=== PATIENT | male | born 1935 | race Caucasian/White ===

== ENCOUNTER 2017-01-10 11:29 | Inpatient (IN) | payer MEDICARE ==
[2017-01-10] MEDS ORDERED: FUROSEMIDE 100 MG/10 ML VIAL IVP STA (12:03)
[2017-01-10] MEDS ORDERED: FUROSEMIDE 20 MG/2 ML VIAL IVP ONE (12:22)
[2017-01-10] MEDS ORDERED: FUROSEMIDE 40 MG/4 ML VIAL ONE (12:22)
[2017-01-10 12:28] LABS: BASOPHILS # (AUTO) 0.1 10^3/uL (0.0-0.1); BASOPHILS % (AUTO) 0.6 %; EOSINOPHILS # (AUTO) 0.1 10^3/uL (0.0-0.7); EOSINOPHILS % (AUTO) 1.2 %; HCT - HEMATOCRIT 41.2 % (42.0-52.0); HGB - HEMOGLOBIN 13.7 g/dL (14.0-18.0); LYMPHOCYTES % (AUTO) 10.2 %; MEAN CORPUSCULAR HEMOGLOBIN 30.5 pg (27.0-31.0); MEAN CORPUSCULAR HGB CONC 33.2 g/dL (32.0-36.0); MEAN CORPUSCULAR VOLUME 91.9 fL (80.0-94.0); MEAN PLATELET VOLUME 9.5 fL (7.4-11.4); MONOCYTES # (AUTO) 0.7 10^3/uL (0.0-1.0); MONOCYTES % (AUTO) 7.6 %; NEUTROPHILS # (AUTO) 7.6 10^3/uL (1.5-6.6); NEUTROPHILS % (AUTO) 80.4 %; RED BLOOD COUNT 4.49 10^6/uL (4.70-6.10); RED CELL DISTRIBUTION WIDTH 14.1 % (12.0-15.0); UNCORRECTED WHITE BLOOD COUNT 9.4 x10^3/uL; WHITE BLOOD COUNT 9.4 x10^3/uL (4.8-10.8)
[2017-01-10 12:41] LABS: ALBUMIN/GLOBULIN RATIO 1.3 (1.0-2.2); BILIRUBIN,TOTAL 0.5 mg/dL (0.2-1.0); CALCIUM 9.4 mg/dL (8.5-10.3); CREATININE 1.6 mg/dL (0.6-1.2); POTASSIUM 3.8 mmol/L (3.5-5.0)
--- NOTE | 2017-01-10 12:59 | XRAY Preliminary Report ---
Exam: XR Chest 1 View IMPRESSION: 1. Diffuse interstitial prominence may be related to magnification artifact from AP portable techniqu e and body habitus or mild interstitial edema. [facility] SITE ID: [id number]
--- NOTE | 2017-01-10 13:02 | XRAY Report ---
EXAM: CHEST RADIOGRAPHY EXAM DATE: 01/10/2017 12:32 PM. CLINICAL HISTORY: Dyspnea. COMPARISON: 01/08/2012. TECHNIQUE: 1 view. FINDINGS: Lungs/Pleura: Diffuse interstitial prominence. No pneumothorax, pleural effusion or focal consolidation evident. Mediastinum: Atherosclerotic aortic calcifications. Other: None. IMPRESSION: 1. Diffuse interstitial prominence may be related to magnification artifact from AP portable techniqu e and body habitus or mild interstitial edema. [facility] Referring Provider Line: [phone] SITE ID: [id number]
--- NOTE | 2017-01-10 13:27 | ED Physician Documentation ---
PD HPI DYSPNEA - Stated complaint Stated Complaint: SOA, SPEECH ISSUES - Chief complaint Chief Complaint: Resp - History obtained from History obtained from: Patient - History of Present Illness Timing - onset: How many weeks ago (1) Timing - onset during: Rest Timing - details: Gradual onset, Constant Associated symptoms: Cough. No: Fever, Chest pain / discomfort Similar symptoms before: Diagnosis (CHF) - Additional information Additional information: The patient is an 81-year-old male history of hypertension, CHF, and type II diabetes, who presents with shortness of breath that has been getting progressively worse for about one week. He reports cough with scant sputum production. He denies fever or chest pain. He has noticed increased swelling in his legs. His dyspnea is worse when supine. He sleeps sitting up in a chair, but has been doing that for about 5 years. He normally takes Lasix, 80 mg daily , and spironolactone, 25 mg daily. He reports similar symptoms in the past but of more transient duration. Social history is significant in that he lives alone. Review of Systems Constitutional: denies: Fever Ears: denies: Tinnitus/ringing Nose: denies: Congestion Throat: denies: Sore throat Cardiac: denies: Chest pain / pressure Respiratory: reports: Dyspnea, Cough GI: denies: Abdominal Pain, Nausea, Vomiting : denies: Dysuria Skin: denies: Rash Musculoskeletal: reports: Extremity swelling. denies: Extremity pain Neurologic: denies: Focal weakness, Headache PD PAST MEDICAL HISTORY - Past Medical History Past Medical History: Yes Cardiovascular: Congestive heart failure, Coronary artery disease, [place] Respiratory: Shortness of breath, Sleep apnea Neuro: None Endocrine/Autoimmune: None GI: Chronic diarrhea : Benign prostate hypertrophy, Chronic bladder infection, Nocturia HEENT: None Psych: Depression Musculoskeletal: Osteoarthritis, Fatigue, Chronic back pain Derm: None - Past Surgical History General: Cholecystectomy - Present Medications Home Medications: Ambulatory Orders Medication Instructions Recorded Confirmed Allopurinol [Zyloprim] 150 mg PO DAILY 01/02/13 01/10/17 Aspirin [Aspir 81] 81 mg PO DAILY 01/02/13 01/10/17 Carvedilol 1 tab PO BID 01/02/13 01/10/17 Cholecalciferol (Vitamin D3) 2,000 unit PO DAILY 01/02/13 01/10/17 [Vitamin D-3] Dutasteride/Tamsulosin HCl [Kati 1 cap PO DAILY 01/02/13 01/10/17 0.5-0.4 mg Capsule] Furosemide [Lasix] 80 mg PO DAILY 01/02/13 01/10/17 Glimepiride [Amaryl] 2 mg PO DAILYWM 01/02/13 01/10/17 Simvastatin [Zocor] 40 mg PO QPM 01/02/13 01/10/17 Spironolactone [Aldactone] 25 mg PO DAILY 01/02/13 01/10/17 Trazodone HCl 100 mg PO HS 01/02/13 01/10/17 Lisinopril [Zestril] 10 mg PO DAILY 01/10/17 01/10/17 Multivitamin [Theragran] 1 tab PO DAILY 01/10/17 01/10/17 - Allergies Allergies/Adverse Reactions: Allergies Allergy/AdvReac Type Severity Reaction Status Date / Time No Known Drug Allergies Allergy Verified 01/02/13 09:20 - Living Situation Living Situation: reports: Alone Living Arrangement: reports: At home - Social History Does the pt smoke?: Yes Smoking Status: Former smoker - Immunizations Immunizations are current?: Yes PD ED PE NORMAL - Vitals Vital signs reviewed: Yes (Tachypneic and hypertensive, with low pulse oximetry of 84% on room air.) - General General: Alert and oriented X 3, Other (Alert, deconditioned male, who appears dyspneic.) - HEENT HEENT: Atraumatic, EOMI, Pharynx benign - Neck Neck: No adenopathy, Other (JVD at 30 elevation.) - Cardiac Cardiac: RRR, No murmur - Respiratory Respiratory: Other (Decreased breath sounds bilaterally, with rales. No wheezing or rhonchi.) - Abdomen Abdomen: Soft, Non tender - Back Back: No CVA TTP - Derm Derm: No rash - Extremities Extremities: No calf tenderness / cord, Other (3+ pedal edema bilaterally.) - Neuro Neuro: Alert and oriented X 3, No motor deficit, Normal speech Results - Vitals Vitals: Vital Signs - 24 hr 01/10/17 01/10/17 01/10/17 11:31 12:07 12:35 Temperature 36.4 C L Heart Rate 98 82 81 Respiratory 36 H 30 H Rate Blood Pressure 159/103 H 131/77 H 124/69 O2 Saturation 84 L 97 96 01/10/17 14:02 Temperature Heart Rate 77 Respiratory 29 H Rate Blood Pressure 105/49 L O2 Saturation 98 Oxygen O2 Source Nasal cannula Oxygen Flow Rate 2.5 - EKG (time done) 11:43 Rate: Rate (enter#) (85) Rhythm: NSR, Other (Multiple PVC's) Intervals: LBBB Ischemia: Q waves (in III and aVF) Compare to prior EKG: Old EKG unavailable Computer interpretation: Agree with computer - Labs Labs: Laboratory Tests 01/10/17 01/10/17 01/10/17 12:15 12:15 12:15 WBC 9.4 RBC 4.49 L Hgb 13.7 L Hct 41.2 L MCV 91.9 MCH 30.5 MCHC 33.2 RDW 14.1 Plt Count 127 L MPV 9.5 Neut # 7.6 H Lymph # 1.0 L [place] # 0.7 Eos # 0.1 Baso # 0.1 Absolute Nucleated RBC 0.00 Nucleated RBCs 0.0 Sodium 143 Potassium 3.8 Chloride 101 Carbon Dioxide 33 H Anion Gap 9.0 BUN 28 H Creatinine 1.6 H Estimated GFR (MDRD) 41 L Glucose 141 H Lactic Acid Calcium 9.4 Total Bilirubin 0.5 AST 17 ALT 22 Alkaline Phosphatase 47 Troponin I 0.51 H* B-Natriuretic Peptide Total Protein 7.0 Albumin 3.9 Globulin 3.1 Albumin/Globulin Ratio 1.3 Lipase 36 Urine Color Urine Clarity Urine pH Ur Specific [place] Urine Protein Urine Glucose (UA) Urine Ketones Urine Occult Blood Urine Nitrite Urine Bilirubin Urine Urobilinogen Ur Leukocyte Esterase Ur Microscopic Review Urine Culture Comments 01/10/17 01/10/17 01/10/17 12:15 12:35 13:50 WBC RBC Hgb Hct MCV MCH MCHC RDW Plt Count MPV Neut # Lymph # [place] # Eos # Baso # Absolute Nucleated RBC Nucleated RBCs Sodium Potassium Chloride Carbon Dioxide Anion Gap BUN Creatinine Estimated GFR (MDRD) Glucose Lactic Acid 1.3 Calcium Total Bilirubin AST ALT Alkaline Phosphatase Troponin I B-Natriuretic Peptide 1886 H Total Protein Albumin Globulin Albumin/Globulin Ratio Lipase Urine Color YELLOW Urine Clarity CLEAR Urine pH 6.5 Ur Specific [place] 1.010 Urine Protein NEGATIVE Urine Glucose (UA) NEGATIVE Urine Ketones NEGATIVE Urine Occult Blood [place] Urine Nitrite NEGATIVE Urine Bilirubin NEGATIVE Urine Urobilinogen 0.2 (NORMAL) Ur Leukocyte Esterase NEGATIVE Ur Microscopic Review NOT INDICATED Urine Culture Comments NOT INDICATED - Rads (name of study) Portable CXR Radiology: Prelim report reviewed, EMP read contemporaneously, See rad report ( Diffuse interstitial prominence may be related to magnification artifact from AP portable technique and body habitus or mild interstitial edema.) PD MEDICAL DECISION MAKING - ED course Complexity details: reviewed results, re-evaluated patient, considered differential, d/w patient, d/w independent marketing consultant ED course: The patient's presentation is significant for acute congestive heart failure with dyspnea and hypoxia. Pulse oximetry was 84% upon presentation on room air. BNP is elevated at 1886. Troponin is mildly above the normal threshold at 0.51. Treatment in the emergency department included administration of Lasix 80 mg IV. A Torres catheter was inserted. Supplemental oxygen was administered by nasal cannula. Following the above treatment the patient's symptoms improved, but he remained tachypneic. I discussed his condition with Dr. Dang who evaluated him in the emergency department and admitted him for further evaluation and treatment. Departure - Departure Disposition: [facility] DC/Xfer Clinical Impression: Hypoxemia Congestive heart failure Qualifiers: Congestive heart failure type: unspecified congestive heart failure type Congestive heart failure chronicity: acute Qualified Code(s): I50.9 - Heart failure, unspecified Dyspnea Qualifiers: Dyspnea type: shortness of breath Qualified Code(s): R06.02 - Shortness of breath Condition: Stable Discharge Date/Time: 01/10/17 15:30
[2017-01-10 14:03] LABS: BILIRUBIN,URINE NEGATIVE (NEGATIVE); PH,URINE 6.5 PH (5.0-7.5)
[2017-01-10 14:07] LABS: UA CHARGE (STRIP ONLY) YES; UR CULTURE IF IND NOT INDICATED
[2017-01-10] MEDS ORDERED: ACETAMINOPHEN 325 MG TABLET PO PRN (14:30)
[2017-01-10] MEDS ORDERED: ONDANSETRON 4 MG/2 ML VIAL IVP PRN (14:30)
[2017-01-10] MEDS ORDERED: HYDROcod/ACETAM 5/325 MG TABLET PO PRN (14:30)
[2017-01-10] MEDS: FUROSEMIDE INJ 100mg VIAL 80 MG in SODIUM CHLORIDE 0.9% 50 ML IVP SCH (18:32)
[2017-01-10 20:23] LABS: BILIRUBIN,URINE NEGATIVE (NEGATIVE); PH,URINE 5.5 PH (5.0-7.5)
[2017-01-10 20:26] LABS: UA w/ MICROSCOPIC CHARGE YES
[2017-01-10 20:29] LABS: UR CULTURE IF IND INDICATED; WBC,URINE >25 /HPF (0-3)
[2017-01-10] MEDS ORDERED: FUROSEMIDE 40 MG/4 ML VIAL IVP SCH (21:00)
[2017-01-10] MEDS: MIN OIL/DIMETHICON/COCONUT OIL 92 GM TUBE TOP SCH (22:16)
[2017-01-10] MEDS: SODIUM CHLORIDE FLUSH 0.9% 10 ML SYRINGE IVP SCH (22:59)
[2017-01-11] MEDS: SODIUM CHLORIDE FLUSH 0.9% 10 ML SYRINGE IVP SCH ×3 (05:43→21:17)
[2017-01-11] MEDS: FUROSEMIDE INJ 100mg VIAL 80 MG in SODIUM CHLORIDE 0.9% 50 ML IVP SCH ×2 (05:43→14:03)
[2017-01-11 06:09] LABS: BASOPHILS # (AUTO) 0.1 10^3/uL (0.0-0.1); BASOPHILS % (AUTO) 0.7 %; EOSINOPHILS # (AUTO) 0.2 10^3/uL (0.0-0.7); HCT - HEMATOCRIT 42.5 % (42.0-52.0); HGB - HEMOGLOBIN 13.9 g/dL (14.0-18.0); LYMPHOCYTES # (AUTO) 1.4 10^3/uL (1.5-3.5); LYMPHOCYTES % (AUTO) 13.7 %; MEAN CORPUSCULAR HEMOGLOBIN 30.4 pg (27.0-31.0); MEAN CORPUSCULAR HGB CONC 32.6 g/dL (32.0-36.0); MEAN CORPUSCULAR VOLUME 93.1 fL (80.0-94.0); MEAN PLATELET VOLUME 10.1 fL (7.4-11.4); MONOCYTES # (AUTO) 0.9 10^3/uL (0.0-1.0); MONOCYTES % (AUTO) 8.3 %; NEUTROPHILS # (AUTO) 7.8 10^3/uL (1.5-6.6); NEUTROPHILS % (AUTO) 75.3 %; RED BLOOD COUNT 4.57 10^6/uL (4.70-6.10); RED CELL DISTRIBUTION WIDTH 14.2 % (12.0-15.0); UNCORRECTED WHITE BLOOD COUNT 10.4 x10^3/uL; WHITE BLOOD COUNT 10.4 x10^3/uL (4.8-10.8)
[2017-01-11 06:17] LABS: ALBUMIN/GLOBULIN RATIO 1.1 (1.0-2.2); CALCIUM 9.3 mg/dL (8.5-10.3); CREATININE 1.6 mg/dL (0.6-1.2)
--- NOTE | 2017-01-11 07:38 | HISTORY & PHYSICAL EXAMINATION ---
DATE OF ADMISSION: 01/10/2017 CHIEF COMPLAINT: Shortness of breath. IDENTIFYING INFORMATION: The patient is an 81-year-old male who appears to be a fair historian, and he is the primary source of history. Additional information is obtained in the handoff from the emergency department physician, Dr. Lim. History is also supplemented by personal review of past medical records that are summarized below. All were used in addition to the patient's examination and evaluation in preparation of this document. HISTORY OF PRESENT ILLNESS: Patient with history of hypertension, CHF, who began having shortness of breath about a week ago. He reports a cough also, mostly dry, some sputum. He says he has been cold at times, but no jere fever or sweats. He denies any chest pain. He has noted that his legs are always swollen, but much more swollen than they have been. The patient normally sleeps in a chair, which he has been doing for several years, but he has had more problems even sleeping at night. The patient says diabetes has not been under as good control. He has had no passing out or fainting episodes. He is quite limited normally in his ambulation. REVIEW OF SYSTEMS: Complete review of systems is negative except for what is noted in the HPI, and that the patient says the bowels have been on the constipated side, but he has pooped sometime in the last few days. PAST MEDICAL HISTORY: Congestive heart failure, coronary artery disease, myocardial infarction. He never had any stents placed. He was conservative management arm of ongoing clinical study for many years. The patient also has sleep apnea. He has chronic diarrhea, which at this point is intermittent. He has BPH, recurrent bladder infections, and also bladder cancer that has been surgerized 3 times. He has nocturia, depression, arthritis, fatigue, chronic back pain. SURGERIES: Cholecystectomy and 3 bladder surgeries. ALLERGIES: NONE KNOWN. MEDICATIONS 1. Zyloprim 175 a day. 2. Aspirin 81 mg a day. 3. Carvedilol 2 tabs twice a day, unknown dose. 4. Vitamin D3. 5. Dutasteride/tamsulosin 1 tab twice a day. 6. Lasix 40 mg twice a day. 7. Amaryl 1 mg a day. 8. Zestril 10 mg a day. 9. Multivitamin 1 a day. 10. Zoloft 25 mg a day. 11. Simvastatin 40 mg a day. 12. Spironolactone 25 mg a day. 13. Trazodone 100 mg at bedtime. PERSONAL AND SOCIAL HISTORY: The patient lives at home alone. His , his children live far away. The patient smoked in his early years, but for a long time. No alcohol. FAMILY HISTORY: Positive for diabetes, heart disease, cancer of an unknown type. PHYSICAL EXAMINATION VITAL SIGNS: 36.4, 98, 30 respiratory rate, 131/71, O2 saturation 97 on 2.5 liters. GENERAL: The patient is a portly male, appears stated age. EYES: EOM within normal limits. PERRL. Nonicteric. MOUTH AND THROAT: Moist mucous membranes, no pathology. NECK: No JVD, bruits heard. No lymphadenopathy, no thyromegaly. CHEST WALL: Nontender. Symmetric. HEART: Sinus rhythm, no murmur, rubs, clicks. LUNGS: Have crackles in the bases bilaterally. No wheezes. Fair air movement. ABDOMEN: Very thick abdominal wall. Soft, nontender. RECTAL/GENITAL: No rectal or genital exam done. EXTREMITIES: He has 3+ edema of both knees bilaterally. VASCULAR: No cyanosis. Delayed capillary refill lower extremities, and pulses are not felt at the posterior tibial. NEUROLOGIC: Cognition intact. Cranial nerves intact. Motor intact. SKIN: No suspicious lesions or dermatitis noted on limited exam. DIAGNOSTICS: White count 9.4, 13 and 41 hemoglobin and hematocrit, patient's platelets are 127. Patient's sodium 143, potassium is 3.8, chloride is 33, BUN 28, creatinine 1.6. The patient's glucose is 141. Lactate 1.3. Calcium 9.4. Troponin 0.5. Patient has normal liver enzymes. Albumin is 3.9. BNP is 1886. SUMMARY: Patient is an 81-year-old male with past medical history of hypertension, CHF, type 1 diabetes, bladder cancer. The patient over the last week became progressive shortness of breath, more swelling in his legs, presents to the hospital. Found to have exacerbation of his CHF. Patient is admitted for diuresis, further workup. Also, suspect cardiac strain versus [place]. DIAGNOSES 1. Congestive heart failure with exacerbation, suspect systolic origin. 2. Cardiac strain versus myocardial infarction. 3. Hypertension. 4. Diabetes, uncontrolled. 5. Bladder cancer by history, in remission. 6. Benign prostatic hypertrophy. DISCUSSION/DECISION MAKING 1. Congestive heart failure. Patient will have diuresis, beta-blockers, ASAD and ARB started as well. Patient's medications are unclear and need to be reconciled by pharmacy to decide on the best regime. Patient's troponin is 0.51 , is mildly abnormal. He will have a followup troponin and decide if any further workup is needed. He will the echo as noted above to assess his cardiac function and decide if there is any regional dyskinesia. 2. Hypertension, presently controlled, but will need to be monitored closely given the above diagnoses. 3. Diabetes type 2, uncontrolled. Will have an A1c to decide how uncontrolled he is and what else may need to be started. The patient will need to be on glucose monitoring and 4 choice controlled carb diet, as well as a low sodium diet for his cardiac disease. 4. Bladder cancer. No diagnostics unless he develops hematuria or other urinary tract problems. 5. Benign prostatic hypertrophy. Will continue his present medications for that disorder. HOSPITAL ISSUES 1. The patient is CODE STATUS DNR/DNI. 2. For patient's venous thromboembolism, patient will get enoxaparin subcutaneous. 3. Diet will be carb controlled and low sodium. 4. Activity, which will be up with assistance. 5. Tubes and lines: Will have a Torres catheter, given the diuresis and his gait instability with the severe leg swelling. He will also have a peripheral IV. 6. Hospital status: He is inpatient status, given the severity of his condition and comorbidities, require at least 2 nights to assure improvement for safe discharge. 7. Length of stay is estimated to be 3 nights. 8. Disposition. Continuing at home may not be safe, and will have evaluation by Social Work and Case Management. JOB #: [id number] EXT JOB #:[id number] [place]
[2017-01-11] MEDS ORDERED: PERFLUTREN LIPID MICROSPHERES 1.65 MG/1.5 ML VIAL IVP ONE (08:06)
[2017-01-11] MEDS: ENOXAPARIN 40 MG/0.4 ML SYRINGE SUBQ SCH (08:23)
[2017-01-11] MEDS: POLYETHYLENE GLYCOL 3350 17 GM PACKET PO SCH (08:24)
[2017-01-11] MEDS: MIN OIL/DIMETHICON/COCONUT OIL 92 GM TUBE TOP SCH ×2 (08:24→21:17)
[2017-01-11] MEDS: NYSTATIN CREAM 15 GM TUBE TOP SCH ×2 (21:16→21:17)
[2017-01-12] MEDS ORDERED: ALBUTEROL NEB 2.5 MG/3 ML INH SCH (01:00)
[2017-01-12] MEDS ORDERED: FUROSEMIDE 40 MG/4 ML VIAL IVP SCH (01:00)
[2017-01-12] MEDS: SODIUM CHLORIDE FLUSH 0.9% 10 ML SYRINGE IVP PRN ×2 (01:17→09:12)
[2017-01-12] MEDS: NYSTATIN CREAM 15 GM TUBE TOP SCH ×3 (05:50→21:11)
[2017-01-12] MEDS: FUROSEMIDE INJ 100mg VIAL 80 MG in SODIUM CHLORIDE 0.9% 50 ML IVP SCH ×2 (05:50→13:44)
[2017-01-12] MEDS: SODIUM CHLORIDE FLUSH 0.9% 10 ML SYRINGE IVP SCH ×3 (05:50→21:11)
[2017-01-12 06:08] LABS: BASOPHILS # (AUTO) 0.1 10^3/uL (0.0-0.1); BASOPHILS % (AUTO) 0.6 %; EOSINOPHILS # (AUTO) 0.1 10^3/uL (0.0-0.7); EOSINOPHILS % (AUTO) 1.3 %; HCT - HEMATOCRIT 43.6 % (42.0-52.0); LYMPHOCYTES # (AUTO) 1.3 10^3/uL (1.5-3.5); LYMPHOCYTES % (AUTO) 13.7 %; MEAN CORPUSCULAR HEMOGLOBIN 30.3 pg (27.0-31.0); MEAN CORPUSCULAR HGB CONC 32.1 g/dL (32.0-36.0); MEAN CORPUSCULAR VOLUME 94.4 fL (80.0-94.0); MEAN PLATELET VOLUME 10.3 fL (7.4-11.4); MONOCYTES # (AUTO) 0.8 10^3/uL (0.0-1.0); MONOCYTES % (AUTO) 8.4 %; NEUTROPHILS # (AUTO) 7.5 10^3/uL (1.5-6.6); RED BLOOD COUNT 4.61 10^6/uL (4.70-6.10); RED CELL DISTRIBUTION WIDTH 14.1 % (12.0-15.0); UNCORRECTED WHITE BLOOD COUNT 9.8 x10^3/uL; WHITE BLOOD COUNT 9.8 x10^3/uL (4.8-10.8)
[2017-01-12 06:19] LABS: ALBUMIN/GLOBULIN RATIO 1.2 (1.0-2.2); CREATININE 1.7 mg/dL (0.6-1.2); POTASSIUM 4.1 mmol/L (3.5-5.0); TOTAL PROTEIN 6.8 g/dL (6.7-8.2)
[2017-01-12] MEDS ORDERED: cefTRIAXone 500 MG VIAL IVP SCH (07:00)
[2017-01-12] MEDS ORDERED: metOLazone 2.5 MG TABLET PO SCH (09:00)
[2017-01-12] MEDS: cefTRIAXone 2 GM in SODIUM CHLORIDE 0.9% MINIBAG 100 ML IV SCH (09:10)
[2017-01-12] MEDS: ENOXAPARIN 40 MG/0.4 ML SYRINGE SUBQ SCH (10:52)
[2017-01-12] MEDS: MIN OIL/DIMETHICON/COCONUT OIL 92 GM TUBE TOP SCH ×2 (10:53→21:11)
[2017-01-12] MEDS: POLYETHYLENE GLYCOL 3350 17 GM PACKET PO SCH (10:53)
--- NOTE | 2017-01-12 11:15 | XRAY Preliminary Report ---
Exam: XR Chest 2 View PA/LAT IMPRESSION: 1. No focal consolidation. 2. Diffuse increased interstitial markings with mild peribronchial cuffing is nonspecific but can be seen in the setting of reactive airways disease, bronchitis and viral infection. 3. The heart is enlarged. There is mild pulmonary vascular congestion. [facility] SITE ID: [id number]
--- NOTE | 2017-01-12 11:18 | XRAY Report ---
EXAM: CHEST RADIOGRAPHY EXAM DATE: 01/12/2017 10:39 AM. CLINICAL HISTORY: F/U CHF. COMPARISON: Chest radiograph dated 01/08/2012. TECHNIQUE: 2 views. FINDINGS: Lungs/Pleura: No focal consolidation. Diffuse increased interstitial markings with mild peribronchial cuffing throughout both lungs. No pleural effusion or pneumothorax. Mediastinum: The heart is enlarged. Pulmonary vasculature is indistinct. Other: None. IMPRESSION: 1. No focal consolidation. 2. Diffuse increased interstitial markings with mild peribronchial cuffing is nonspecific but can be seen in the setting of reactive airways disease, bronchitis and viral infection. 3. The heart is enlarged. There is mild pulmonary vascular congestion. [facility] Referring Provider Line: [phone] SITE ID: [id number]
--- NOTE | 2017-01-12 13:21 | PROVIDER PROGRESS NOTE ---
Assessment/Plan - Problem List (1) Congestive heart failure Qualifiers: Congestive heart failure type: unspecified congestive heart failure type Congestive heart failure chronicity: acute Qualified Code(s): I50.9 - Heart failure, unspecified Assessment/Plan: His Echo shows a very poor EF of <20% He has had a fair diuresis. His GFR started to decline today. Will stop the [place]. - Current Meds Current Meds: Current Medications Generic Name Dose Route Start Last Admin Trade Name Freq PRN Reason Stop Dose Admin Enoxaparin Sodium 40 mg 01/11/17 09:00 01/12/17 10:52 Lovenox SUBQ 40 mg DAILY RAJIV Administration Furosemide 80 mg/ Sodium 58 mls @ 116 mls/hr 01/11/17 14:00 01/12/17 05:50 Chloride IVP 116 mls/hr BIDDIURETIC RAJIV Administration Ceftriaxone Sodium 2 gm/ 100 mls @ 200 mls/hr 01/12/17 09:00 01/12/17 09:10 Sodium Chloride IV 200 mls/hr DAILY RAJIV Administration Mineral Oil 1 applic 01/10/17 21:00 01/12/17 10:53 Cavilon TOP 1 applic BID RAJIV Administration Nystatin 1 applic 01/11/17 15:00 01/12/17 05:50 Mycostatin Cream TOP 1 applic TID RAJIV Administration Polyethylene Glycol 17 gm 01/11/17 09:00 01/12/17 10:53 Miralax PO 17 gm DAILY RAJIV Administration Sodium Chloride 10 ml 01/10/17 14:30 01/12/17 09:12 Normal Saline Flush 0.9% IVP 10 ml PRN PRN Administration NEEDED PER PROVIDER ORDERS Sodium Chloride 10 ml 01/10/17 22:00 01/12/17 05:50 Normal Saline Flush 0.9% IVP 10 ml Q8HR RAJIV Administration - Lab Result Fish Bone Diagrams: 01/13/17 05:30 01/13/17 05:30 - Additional Planning My Orders: My Active Orders 01/11/17 14:00 FUROSEMIDE INJ 100mg VIAL [LASIX INJ 100mg VIAL] 80 mg Sodium Chloride 0.9% [ Normal Saline 0.9%] 50 ml IVP BIDDIURETIC 01/11/17 15:00 Nystatin Cream [Mycostatin Cream] 1 applic TOP TID 01/12/17 09:00 cefTRIAXone [Rocephin] 2 gm Sodium Chloride 0.9% Minibag [Normal Saline 0.9% Minibag] 100 ml IV DAILY 01/12/17 12:20 Miscellaenous Nursing Order [RC] QSHIFT 01/12/17 13:00 Aspirin EC [Ecotrin] 81 mg PO DAILY Carvedilol [Coreg] 6.25 mg PO BID Dutasteride/Tamsulosin HCl [Kati 0.5-0.4 mg Capsule] 1 cap PO DAILY Multivitamin [Theragran] 1 tab PO DAILY 01/12/17 21:00 Atorvastatin [Lipitor] 20 mg PO QPM 01/13/17 09:00 Lisinopril [Zestril] 5 mg PO DAILY Subjective - Subjective Patient Reports: Fatigue, Shortness of Breath Nursing Reports: Shortness of Breath Objective Vital Signs: Vital Signs - 24 hr 01/11/17 01/11/17 01/12/17 13:22 19:22 01:00 Temperature 36.6 C 37.1 C Heart Rate 68 Heart Rate [ 91 61 Brachial] Respiratory 20 18 20 Rate Blood Pressure 118/60 132/65 H [Right Brachial artery] O2 Saturation 97 95 01/12/17 01/12/17 01/12/17 01:11 08:17 13:03 Temperature 37.0 C 36.6 C Heart Rate Heart Rate [ 78 68 Brachial] Respiratory 20 24 Rate Blood Pressure 115/73 122/78 [Right Brachial artery] O2 Saturation 95 95 Oxygen O2 Source [With Activity] 94-95% on 3L, HR 101 O2 Source [Without Activity] 96% on 3L O2 Source Nasal cannula I&O (Last 24 Hrs): Intake and Output Totals x24h 01/10/17 01/11/17 01/12/17 23:59 23:59 23:59 Intake Total 400 1249 180 Output Total 1400 2500 800 Balance -1000 -1251 -620 General: Alert, Oriented x3, Cooperative HEENT: PERRLA Neck: Supple, No JVD, No thyromegaly Neuro: Alert, Oriented Times 3 Cardiovascular: Regular rate, No murmurs Respiratory: Chest non-tender, Rales, Rhonchi Abdomen: Soft, No tenderness Extremities: No clubbing, Other (still has 3 + edema of both legs) - Results Results: Laboratory Results WBC 9.8 x10^3/uL (4.8-10.8) 01/12/17 05:50 RBC 4.61 10^6/uL (4.70-6.10) L 01/12/17 05:50 Hgb 14.0 g/dL (14.0-18.0) 01/12/17 05:50 Hct 43.6 % (42.0-52.0) 01/12/17 05:50 MCV 94.4 fL (80.0-94.0) H 01/12/17 05:50 MCH 30.3 pg (27.0-31.0) 01/12/17 05:50 MCHC 32.1 g/dL (32.0-36.0) 01/12/17 05:50 RDW 14.1 % (12.0-15.0) 01/12/17 05:50 Plt Count 147 10^3/uL (130-450) 01/12/17 05:50 MPV 10.3 fL (7.4-11.4) 01/12/17 05:50 Neut # 7.5 10^3/uL (1.5-6.6) H 01/12/17 05:50 Lymph # 1.3 10^3/uL (1.5-3.5) L 01/12/17 05:50 [place] # 0.8 10^3/uL (0.0-1.0) 01/12/17 05:50 Eos # 0.1 10^3/uL (0.0-0.7) 01/12/17 05:50 Baso # 0.1 10^3/uL (0.0-0.1) 01/12/17 05:50 Absolute Nucleated RBC 0.00 x10^3/uL 01/12/17 05:50 Nucleated RBCs 0.0 /100WBC 01/12/17 05:50 Sodium 143 mmol/L (135-145) 01/12/17 05:50 Potassium 4.1 mmol/L (3.5-5.0) 01/12/17 05:50 Chloride 97 mmol/L (101-111) L 01/12/17 05:50 Carbon Dioxide 36 mmol/L (21-32) H 01/12/17 05:50 Anion Gap 10.0 (6-13) 01/12/17 05:50 BUN 33 mg/dL (6-20) H 01/12/17 05:50 Creatinine 1.7 mg/dL (0.6-1.2) H 01/12/17 05:50 Estimated GFR (MDRD) 39 (>89) L 01/12/17 05:50 Glucose 168 mg/dL (70-100) H 01/12/17 05:50 POC Whole Bld Glucose 132 mg/dL (70 - 100) H 01/11/17 08:03 Lactic Acid 1.3 mmol/L (0.5-2.2) 01/10/17 12:35 Calcium 9.0 mg/dL (8.5-10.3) 01/12/17 05:50 Magnesium 2.1 mg/dL (1.7-2.8) 01/10/17 14:30 Total Bilirubin 1.0 mg/dL (0.2-1.0) 01/12/17 05:50 AST 16 IU/L (10-42) 01/12/17 05:50 ALT 22 IU/L (10-60) 01/12/17 05:50 Alkaline Phosphatase 48 IU/L (42-121) 01/12/17 05:50 Troponin I 0.54 ng/mL (<0.49) H* 01/10/17 17:45 B-Natriuretic Peptide 1886 pg/mL (5-100) H 01/10/17 12:15 Total Protein 6.8 g/dL (6.7-8.2) 01/12/17 05:50 Albumin 3.7 g/dL (3.2-5.5) 01/12/17 05:50 Globulin 3.1 g/dL (2.1-4.2) 01/12/17 05:50 Albumin/Globulin Ratio 1.2 (1.0-2.2) 01/12/17 05:50 Lipase 36 U/L (22-51) 01/10/17 12:15 Urine Color YELLOW 01/10/17 20:10 Urine Clarity SL. CLOUDY (CLEAR) 01/10/17 20:10 Urine pH 5.5 PH (5.0-7.5) 01/10/17 20:10 Ur Specific [place] 1.015 (1.002-1.030) 01/10/17 20:10 Urine Protein NEGATIVE mg/dL (NEGATIVE) 01/10/17 20:10 Urine Glucose (UA) NEGATIVE mg/dL (NEGATIVE) 01/10/17 20:10 Urine Ketones NEGATIVE mg/dL (NEGATIVE) 01/10/17 20:10 Urine Occult Blood LARGE (NEGATIVE) H 01/10/17 20:10 Urine Nitrite NEGATIVE (NEGATIVE) 01/10/17 20:10 Urine Bilirubin NEGATIVE (NEGATIVE) 01/10/17 20:10 Urine Urobilinogen 0.2 (NORMAL) E.U./dL (NORMAL) 01/10/17 20:10 Ur Leukocyte Esterase MODERATE (NEGATIVE) H 01/10/17 20:10 Urine RBC TNTC /HPF (0-5) H 01/10/17 20:10 Urine WBC >25 /HPF (0-3) H 01/10/17 20:10 Ur Squamous Epith Cells RARE Squamous (<= Few) 01/10/17 20:10 Urine Bacteria Few /HPF (None Seen) 01/10/17 20:10 Ur Microscopic Review INDICATED 01/10/17 20:10 Urine Culture Comments INDICATED 01/10/17 20:10 - Procedures Procedures: Procedures CATARAC PHACOEMULS/ASPIR (12/01/14) INSERT LENS AT CATAR EXT (12/01/14)
[2017-01-12] MEDS: ASPIRIN EC 81 MG TABLET PO SCH (13:44)
[2017-01-12] MEDS: FINASTERIDE 5 MG TABLET PO SCH (13:44)
[2017-01-12] MEDS: MULTIVITAMIN TABLET PO SCH (13:44)
[2017-01-12] MEDS: TAMSULOSIN 0.4 MG CAPSULE PO SCH (13:44)
[2017-01-12] MEDS: CARVEDILOL 3.125 MG TABLET PO SCH ×2 (13:44→21:11)
[2017-01-12] MEDS: ATORVASTATIN 10 MG TABLET PO SCH (21:10)
[2017-01-13] MEDS: SODIUM CHLORIDE FLUSH 0.9% 10 ML SYRINGE IVP SCH ×3 (05:23→20:28)
[2017-01-13] MEDS: FUROSEMIDE INJ 100mg VIAL 80 MG in SODIUM CHLORIDE 0.9% 50 ML IVP SCH ×2 (05:23→13:35)
[2017-01-13] MEDS: NYSTATIN CREAM 15 GM TUBE TOP SCH ×3 (05:46→20:28)
[2017-01-13 06:02] LABS: BASOPHILS # (AUTO) 0.1 10^3/uL (0.0-0.1); BASOPHILS % (AUTO) 0.6 %; EOSINOPHILS # (AUTO) 0.1 10^3/uL (0.0-0.7); EOSINOPHILS % (AUTO) 1.2 %; HCT - HEMATOCRIT 40.5 % (42.0-52.0); HGB - HEMOGLOBIN 13.1 g/dL (14.0-18.0); LYMPHOCYTES # (AUTO) 0.9 10^3/uL (1.5-3.5); LYMPHOCYTES % (AUTO) 10.4 %; MEAN CORPUSCULAR HEMOGLOBIN 30.4 pg (27.0-31.0); MEAN CORPUSCULAR HGB CONC 32.3 g/dL (32.0-36.0); MEAN CORPUSCULAR VOLUME 94.1 fL (80.0-94.0); MEAN PLATELET VOLUME 9.9 fL (7.4-11.4); MONOCYTES # (AUTO) 0.6 10^3/uL (0.0-1.0); MONOCYTES % (AUTO) 6.7 %; NEUTROPHILS # (AUTO) 7.3 10^3/uL (1.5-6.6); NEUTROPHILS % (AUTO) 81.1 %; NUCLEATED RED BLOOD CELLS AUTO 0.1 /100WBC; RED CELL DISTRIBUTION WIDTH 13.8 % (12.0-15.0)
[2017-01-13 06:16] LABS: ALBUMIN/GLOBULIN RATIO 1.2 (1.0-2.2); BILIRUBIN,TOTAL 0.9 mg/dL (0.2-1.0); CALCIUM 9.1 mg/dL (8.5-10.3); CREATININE 1.7 mg/dL (0.6-1.2); TOTAL PROTEIN 6.7 g/dL (6.7-8.2)
[2017-01-13 07:40] LABS: HEMOGLOBIN A1C 0.83 g/dL
[2017-01-13] MEDS: ASPIRIN EC 81 MG TABLET PO SCH (08:50)
[2017-01-13] MEDS: cefTRIAXone 2 GM in SODIUM CHLORIDE 0.9% MINIBAG 100 ML IV SCH (08:50)
[2017-01-13] MEDS: ENOXAPARIN 40 MG/0.4 ML SYRINGE SUBQ SCH (08:51)
[2017-01-13] MEDS: FINASTERIDE 5 MG TABLET PO SCH (08:51)
[2017-01-13] MEDS: LISINOPRIL 5 MG TABLET PO SCH (08:51)
[2017-01-13] MEDS: MIN OIL/DIMETHICON/COCONUT OIL 92 GM TUBE TOP SCH ×2 (08:52→20:28)
[2017-01-13] MEDS: MULTIVITAMIN TABLET PO SCH (08:52)
[2017-01-13] MEDS: POLYETHYLENE GLYCOL 3350 17 GM PACKET PO SCH (08:52)
[2017-01-13] MEDS: CARVEDILOL 3.125 MG TABLET PO SCH ×2 (08:53→20:27)
[2017-01-13] MEDS: TAMSULOSIN 0.4 MG CAPSULE PO SCH (08:53)
[2017-01-13] MEDS: acetaZOLAMIDE 250 MG TABLET PO SCH ×2 (08:55→20:27)
--- NOTE | 2017-01-13 16:56 | PROVIDER PROGRESS NOTE ---
Assessment/Plan - Problem List (1) Congestive heart failure Qualifiers: Congestive heart failure type: unspecified congestive heart failure type Congestive heart failure chronicity: acute Qualified Code(s): I50.9 - Heart failure, unspecified Assessment/Plan: Donny has lost over 7 kg. He was at 124 kg and now 117. Unfortunately, his kidneys are stressed. The zaroxyln was stopped yesterday. Because his CO2 is up to 38, started diamox. The plan is to use it for 3 days to see if will augment his UO without compromising GFR. Had a long prognosis is poor conversation with Donny today. There was a F/U conversation with Kaley and Donny about end of life decisions. I particular the first decision is about post disch care. He chose in home care. He also signed a POLST (2) Respiratory failure Assessment/Plan: His respiratory failure has only modestly improved. There is no pneumonia and no UTI so antibiotics are stopped. See ACP for other end of life discussion. - Current Meds Current Meds: Current Medications Generic Name Dose Route Start Last Admin Trade Name Bruce PRN Reason Stop Dose Admin Acetazolamide 250 mg 01/13/17 09:00 01/13/17 08:55 Diamox PO 250 mg BID RAJIV Administration Aspirin 81 mg 01/12/17 13:00 01/13/17 08:50 Ecotrin PO 81 mg DAILY RAJIV Administration Atorvastatin Calcium 20 mg 01/12/17 21:00 01/12/17 21:10 Lipitor PO 20 mg QPM RAJIV Administration Carvedilol 6.25 mg 01/12/17 13:00 01/13/17 08:53 Coreg PO 6.25 mg BID RAJIV Administration Enoxaparin Sodium 40 mg 01/11/17 09:00 01/13/17 08:51 Lovenox SUBQ 40 mg DAILY RAJIV Administration Finasteride 5 mg 01/12/17 13:00 01/13/17 08:51 Proscar PO 5 mg DAILY RAJIV Administration Furosemide 80 mg/ Sodium 58 mls @ 116 mls/hr 01/11/17 14:00 01/13/17 13:35 Chloride IVP 116 mls/hr BIDDIURETIC RAJIV Administration Lisinopril 5 mg 01/13/17 09:00 01/13/17 08:51 Zestril PO 5 mg DAILY RAJIV Administration Mineral Oil 1 applic 01/10/17 21:00 01/13/17 08:52 Cavilon TOP 1 applic BID RAJIV Administration Multivitamins 1 tab 01/12/17 13:00 01/13/17 08:52 Theragran PO 1 tab DAILY RAJIV Administration Nystatin 1 applic 01/11/17 15:00 01/13/17 13:36 Mycostatin Cream TOP 1 applic TID RAJIV Administration Polyethylene Glycol 17 gm 01/11/17 09:00 01/13/17 08:52 Miralax PO 17 gm DAILY RAJIV Administration Sodium Chloride 10 ml 01/10/17 14:30 01/12/17 09:12 Normal Saline Flush 0.9% IVP 10 ml PRN PRN Administration NEEDED PER PROVIDER ORDERS Sodium Chloride 10 ml 01/10/17 22:00 01/13/17 13:36 Normal Saline Flush 0.9% IVP 10 ml Q8HR RAJIV Administration Tamsulosin HCl 0.4 mg 01/12/17 13:00 01/13/17 08:53 Flomax PO 0.4 mg DAILY RAJIV Administration - Lab Result Fish Bone Diagrams: 01/13/17 05:30 01/13/17 05:30 - Additional Planning My Orders: My Active Orders 01/12/17 21:00 Atorvastatin [Lipitor] 20 mg PO QPM 01/13/17 09:00 Lisinopril [Zestril] 5 mg PO DAILY acetaZOLAMIDE [Diamox] 250 mg PO BID Subjective - Subjective Patient Reports: Feeling Better, Resting Comfortably, Shortness of Breath Nursing Reports: Shortness of Breath (SOB affects his speech. He tries to talk while breathing and it causes stuttering and gaps in vocalization.) Objective Vital Signs: Vital Signs - 24 hr 01/12/17 01/12/17 01/13/17 17:26 21:09 00:10 Temperature 37.0 C 37.1 C Heart Rate [ 74 72 67 Brachial] Respiratory 24 18 Rate Blood Pressure [Left Brachial artery] Blood Pressure 123/72 110/61 120/73 [Right Brachial artery] O2 Saturation 98 97 97 01/13/17 12:43 Temperature 36.8 C Heart Rate [ 69 Brachial] Respiratory 20 Rate Blood Pressure 112/78 [Left Brachial artery] Blood Pressure [Right Brachial artery] O2 Saturation 97 Oxygen O2 Source [With Activity] Oxymask O2 Source [Without Activity] 96% on 3L O2 Source Nasal cannula I&O (Last 24 Hrs): Intake and Output Totals x24h 01/11/17 01/12/17 01/13/17 23:59 23:59 23:59 Intake Total 1249 1018 1122 Output Total 2500 3000 1925 Balance -1251 -1982 -803 General: Alert, Oriented x3, Cooperative HEENT: PERRLA, EOMI Neck: No JVD, No thyromegaly Neuro: Alert, Oriented Times 3 Cardiovascular: Regular rate, No murmurs Respiratory: Rales, Rhonchi Abdomen: Normal bowel sounds, Soft Extremities: Other (He has improved leg edema, still 2-3+) - Results Results: Laboratory Results WBC 9.0 x10^3/uL (4.8-10.8) 01/13/17 05:30 RBC 4.30 10^6/uL (4.70-6.10) L 01/13/17 05:30 Hgb 13.1 g/dL (14.0-18.0) L 01/13/17 05:30 Hct 40.5 % (42.0-52.0) L 01/13/17 05:30 MCV 94.1 fL (80.0-94.0) H 01/13/17 05:30 MCH 30.4 pg (27.0-31.0) 01/13/17 05:30 MCHC 32.3 g/dL (32.0-36.0) 01/13/17 05:30 RDW 13.8 % (12.0-15.0) 01/13/17 05:30 Plt Count 139 10^3/uL (130-450) 01/13/17 05:30 MPV 9.9 fL (7.4-11.4) 01/13/17 05:30 Neut # 7.3 10^3/uL (1.5-6.6) H 01/13/17 05:30 Lymph # 0.9 10^3/uL (1.5-3.5) L 01/13/17 05:30 Rogers # 0.6 10^3/uL (0.0-1.0) 01/13/17 05:30 Eos # 0.1 10^3/uL (0.0-0.7) 01/13/17 05:30 Baso # 0.1 10^3/uL (0.0-0.1) 01/13/17 05:30 Absolute Nucleated RBC 0.01 x10^3/uL 01/13/17 05:30 Nucleated RBCs 0.1 /100WBC 01/13/17 05:30 Sodium 141 mmol/L (135-145) 01/13/17 05:30 Potassium 4.0 mmol/L (3.5-5.0) 01/13/17 05:30 Chloride 94 mmol/L (101-111) L 01/13/17 05:30 Carbon Dioxide 37 mmol/L (21-32) H 01/13/17 05:30 Anion Gap 10.0 (6-13) 01/13/17 05:30 BUN 43 mg/dL (6-20) H 01/13/17 05:30 Creatinine 1.7 mg/dL (0.6-1.2) H 01/13/17 05:30 Estimated GFR (MDRD) 39 (>89) L 01/13/17 05:30 Glucose 194 mg/dL (70-100) H 01/13/17 05:30 POC Whole Bld Glucose 132 mg/dL (70 - 100) H 01/11/17 08:03 Glycated Hemoglobin 7.6 % (4.6-6.2) H 01/13/17 05:30 Estim Average Glucose 171 (70-100) H 01/13/17 05:30 Lactic Acid 1.3 mmol/L (0.5-2.2) 01/10/17 12:35 Calcium 9.1 mg/dL (8.5-10.3) 01/13/17 05:30 Magnesium 2.1 mg/dL (1.7-2.8) 01/10/17 14:30 Total Bilirubin 0.9 mg/dL (0.2-1.0) 01/13/17 05:30 AST 21 IU/L (10-42) 01/13/17 05:30 ALT 23 IU/L (10-60) 01/13/17 05:30 Alkaline Phosphatase 49 IU/L (42-121) 01/13/17 05:30 Troponin I 0.54 ng/mL (<0.49) H* 01/10/17 17:45 B-Natriuretic Peptide 1886 pg/mL (5-100) H 01/10/17 12:15 Total Protein 6.7 g/dL (6.7-8.2) 01/13/17 05:30 Albumin 3.6 g/dL (3.2-5.5) 01/13/17 05:30 Globulin 3.1 g/dL (2.1-4.2) 01/13/17 05:30 Albumin/Globulin Ratio 1.2 (1.0-2.2) 01/13/17 05:30 Lipase 36 U/L (22-51) 01/10/17 12:15 Urine Color YELLOW 01/10/17 20:10 Urine Clarity SL. CLOUDY (CLEAR) 01/10/17 20:10 Urine pH 5.5 PH (5.0-7.5) 01/10/17 20:10 Ur Specific [place] 1.015 (1.002-1.030) 01/10/17 20:10 Urine Protein NEGATIVE mg/dL (NEGATIVE) 01/10/17 20:10 Urine Glucose (UA) NEGATIVE mg/dL (NEGATIVE) 01/10/17 20:10 Urine Ketones NEGATIVE mg/dL (NEGATIVE) 01/10/17 20:10 Urine Occult Blood LARGE (NEGATIVE) H 01/10/17 20:10 Urine Nitrite NEGATIVE (NEGATIVE) 01/10/17 20:10 Urine Bilirubin NEGATIVE (NEGATIVE) 01/10/17 20:10 Urine Urobilinogen 0.2 (NORMAL) E.U./dL (NORMAL) 01/10/17 20:10 Ur Leukocyte Esterase MODERATE (NEGATIVE) H 01/10/17 20:10 Urine RBC TNTC /HPF (0-5) H 01/10/17 20:10 Urine WBC >25 /HPF (0-3) H 01/10/17 20:10 Ur Squamous Epith Cells RARE Squamous (<= Few) 01/10/17 20:10 Urine Bacteria Few /HPF (None Seen) 01/10/17 20:10 Ur Microscopic Review INDICATED 01/10/17 20:10 Urine Culture Comments INDICATED 01/10/17 20:10 - Procedures Procedures: Procedures CATARAC PHACOEMULS/ASPIR (12/01/14) INSERT LENS AT CATAR EXT (12/01/14)
--- NOTE | 2017-01-13 17:08 | ADVANCE CARE PLANNING NOTE ---
Advance Care Planning - Date/Time Date: 01/13/17 Time: 10:20 - Purpose of encounter Text: Gilberto, his step son - Parties in attendance Parties in attendance: POA - Goals of Care Goals of care determinations: Donny has end stage CHF with EF of <20 % He has been told he does not have a long time to live. Donny says he is not worried about end of life. He wants to go home and have in home care. Gilberto is OK with this and wants to find people to help this happen. - Plan Plan: He is now DNR and DNI - Code Status Code Status: Do Not Attempt Resuscitation - Time Spent on Advance Care Planning Time spent on advance care plannin minutes.
[2017-01-13] MEDS: ATORVASTATIN 10 MG TABLET PO SCH (20:27)
[2017-01-14] MEDS: SODIUM CHLORIDE FLUSH 0.9% 10 ML SYRINGE IVP SCH ×3 (05:40→21:58)
[2017-01-14] MEDS: FUROSEMIDE INJ 100mg VIAL 80 MG in SODIUM CHLORIDE 0.9% 50 ML IVP SCH ×2 (05:40→13:49)
[2017-01-14] MEDS: NYSTATIN CREAM 15 GM TUBE TOP SCH ×3 (05:41→21:57)
[2017-01-14] MEDS: FINASTERIDE 5 MG TABLET PO SCH (08:46)
[2017-01-14] MEDS: ENOXAPARIN 40 MG/0.4 ML SYRINGE SUBQ SCH (08:46)
[2017-01-14] MEDS: MULTIVITAMIN TABLET PO SCH (08:46)
[2017-01-14] MEDS: TAMSULOSIN 0.4 MG CAPSULE PO SCH (08:46)
[2017-01-14] MEDS: ASPIRIN EC 81 MG TABLET PO SCH (08:46)
[2017-01-14] MEDS: POLYETHYLENE GLYCOL 3350 17 GM PACKET PO SCH (08:47)
[2017-01-14] MEDS: acetaZOLAMIDE 250 MG TABLET PO SCH ×2 (08:47→21:57)
[2017-01-14] MEDS: CARVEDILOL 3.125 MG TABLET PO SCH ×2 (08:47→21:57)
[2017-01-14] MEDS: LISINOPRIL 5 MG TABLET PO SCH (08:47)
[2017-01-14] MEDS: MIN OIL/DIMETHICON/COCONUT OIL 92 GM TUBE TOP SCH ×2 (08:48→21:58)
--- NOTE | 2017-01-14 14:20 | PROVIDER PROGRESS NOTE ---
Subjective - Prog Note Date Prog Note Date: 01/14/17 Prog Note Time: 14:17 - Subjective Pt reports feeling: No change Subjective: he is tired. very sob even with talking. would like to go get stronger if his CHF can be stabilized. has been diuresed, on appropriate meds. better than admission but still diego with just sitting and talking. Current Medications - Current Medications Current Medications: Active Medications Acetaminophen (Tylenol) 650 mg PO Q4HR PRN PRN Reason: Pain 1 to 4 Acetaminophen/Hydrocodone Bitart ([place] 5/325) 1 tab PO Q4HR PRN PRN Reason: Pain 5 to 7 Acetazolamide (Diamox) 250 mg PO BID [facility] Last Admin: 01/14/17 08:47 Dose: 250 mg Aspirin (Ecotrin) 81 mg PO DAILY [facility] Last Admin: 01/14/17 08:46 Dose: 81 mg Atorvastatin Calcium (Lipitor) 20 mg PO QPM [facility] Last Admin: 01/13/17 20:27 Dose: 20 mg Carvedilol (Coreg) 6.25 mg PO BID [facility] Last Admin: 01/14/17 08:47 Dose: 6.25 mg Enoxaparin Sodium (Lovenox) 40 mg SUBQ DAILY [facility] Last Admin: 01/14/17 08:46 Dose: 40 mg Finasteride (Proscar) 5 mg PO DAILY [facility] Last Admin: 01/14/17 08:46 Dose: 5 mg Furosemide 80 mg/ Sodium (Chloride) 58 mls @ 116 mls/hr IVP BIDDIURETIC [facility] Lisinopril (Zestril) 5 mg PO DAILY [facility] Last Admin: 01/14/17 08:47 Dose: 5 mg Mineral Oil (Cavilon) 1 applic TOP BID [facility] Last Admin: 01/14/17 08:48 Dose: 1 applic Multivitamins (Theragran) 1 tab PO DAILY [facility] Last Admin: 01/14/17 08:46 Dose: 1 tab Nystatin (Mycostatin Cream) 1 applic TOP TID [facility] Last Admin: 01/14/17 13:49 Dose: 1 applic Ondansetron HCl (Zofran Inj) 4 mg IVP Q4HR PRN PRN Reason: Nausea / Vomiting Polyethylene Glycol (Miralax) 17 gm PO DAILY [facility] Last Admin: 01/14/17 08:47 Dose: Not Given Sodium Chloride (Normal Saline Flush 0.9%) 10 ml IVP PRN PRN PRN Reason: NEEDED PER PROVIDER ORDERS Last Admin: 01/12/17 09:12 Dose: 10 ml Sodium Chloride (Normal Saline Flush 0.9%) 10 ml IVP Q8HR [facility] Last Admin: 01/14/17 13:49 Dose: 10 ml Tamsulosin HCl (Flomax) 0.4 mg PO DAILY [facility] Last Admin: 01/14/17 08:46 Dose: 0.4 mg Allopurinol [Zyloprim] 150 mg PO DAILY 01/02/13 Aspirin [Aspir 81] 81 mg PO DAILY 01/02/13 Carvedilol 6.25 tab PO BID 01/02/13 Cholecalciferol (Vitamin D3) [Vitamin D-3] 2,000 unit PO DAILY 01/02/13 Dutasteride/Tamsulosin HCl [Kati 0.5-0.4 mg Capsule] 1 cap PO DAILY 01/02/13 Furosemide [Lasix] 80 mg PO DAILY 01/02/13 Glimepiride [Amaryl] 2 mg PO DAILYWM 01/02/13 Simvastatin [Zocor] 40 mg PO QPM 01/02/13 Spironolactone [Aldactone] 25 mg PO DAILY 01/02/13 Trazodone HCl 100 mg PO HS 01/02/13 Lisinopril [Zestril] 10 mg PO DAILY 01/10/17 Multivitamin [Theragran] 1 tab PO DAILY 01/10/17 Objective - Vital Signs/Intake & Output Reviewed Vital Signs: Yes Vital Signs: Vital Signs x48h Temp Pulse Resp BP Pulse Ox 01/14/17 09:30 36.8 C 70 18 104/67 96 Intake & Output: Intake & Output 01/11/17 01/12/17 01/13/17 01/14/17 23:59 23:59 23:59 23:59 Intake Total 1249 1018 1562 740 Output Total 2645 6329 2700 1621 [facility] -1251 -1984 -1138 -885 - Objective General Appearance: positive: No acute distress, Alert, Other (overweight elderly white male) Eyes Bilateral: positive: PERRL ENT: positive: Dry mucous membranes (mouth breathing at times with [place]go) Neck: positive: No JVD. negative: Lymphadenopathy (R), Lymphadenopathy (L), Stiff neck Respiratory: positive: Chest non-tender, Rales, Other (chronic tachypnea) Cardiovascular: positive: Regular rate & rhythm, Systolic murmur. negative: Gallop/S4, Friction rub Abdomen: positive: Non-tender, No distention, Other (obese). negative: Guarding , Rebound Skin: positive: Pallor Extremities: positive: Full ROM, Pedal edema Neurologic/Psychiatric: positive: Oriented x3, CN's nml (2-12), Motor nml, Weakness, Other (he says this is affecting his memory. it's hard to concentrate and at times forgets words or names adn it) - Lab Results Fish Bones: 01/13/17 05:30 01/13/17 05:30 Assessment/Plan - Problem List (1) Acute systolic (congestive) heart failure Impression: Donny has lost over weight from diuresis. Was at 122.47 and now 115.9 today Unfortunately, his kidneys are stressed. The zaroxyln was stopped 01/12 Because his CO2 is up to 38, started diamox 01/13 The plan is to use it for 3 days to see if will augment his UO without compromising GFR. Dr. Dang had a long conversation about poor prognosis 01/13 [facility] Mr. Kimbrough. There was a F/U conversation with Gilberto and Donny about end of life decisions. It was thought the patient wanted home but it turns out he would like to try some rehab to see if can get enough strenght just to transfer for going to bathroom, sitting up, etc. He also signed a POLST 01/13. Plan: Check BMP and troponin since he does have CAD hx and troponin was up on admission. we're not going to change tx if it's NSTEMI but will give me guidance about his condition. PT/OT eval to see if can do rehab [facility] to see him today to discuss plans for the future. (2) Acute and chronic respiratory failure with hypoxia Impression: from his CHF. needs O2 2-3 liters even at rest. has been as high as 5 liters and oxymask. continue prn . (3) CAD (coronary artery disease), [place] coronary artery Impression: he had an elevated troponin on admit. check today for fu. Qualifiers: [place] vs. transplanted heart: [place] heart Associated angina: without angina Qualified Code(s): I25.10 - Atherosclerotic heart disease of [place] coronary artery without angina pectoris (4) Type 2 diabetes mellitus with complication, without long-term current use of insulin Impression: was on glimeperide as outpt. A1c is 7.6%. Here out goal is to be <200. not aiming for strict control in view of end stage CHF. is eating 75% to 100% of food.
[2017-01-14 14:59] LABS: CALCIUM 9.5 mg/dL (8.5-10.3); CREATININE 1.7 mg/dL (0.6-1.2); POTASSIUM 3.6 mmol/L (3.5-5.0)
[2017-01-14] MEDS: ATORVASTATIN 10 MG TABLET PO SCH (21:57)
--- NOTE | 2017-01-15 05:30 | CONSULTATION NOTE ---
DATE OF CONSULTATION: 01/14/2017 00:00:00 REQUESTING PROVIDER: Dr. Akash Dang TIME OF VISIT 12:45-2 p.m. TOPIC: Initial palliative care consult. Thank you Dr. Dang asking the palliative care consult service to be involved in the care of your th e patient. I am asked to define goals of care as well as to evaluate for transition planning. History obtained from the patient and records reviewed were hospital records. EXAM LIMITATIONS: The patient is quite breathless, is quite exhausted and nodding off frequently thro ugh visit but is oriented. BRIEF HISTORY OF PRESENT ILLNESS: This is a raymundo 81-year-old gentleman who has been progressively f ailing at home for the last several months to a year. He presented to the emergency on 01/10/2017 wit h increased shortness of breath with exacerbation of his CHF failure. He had increased lower extremit y edema, decreased functional status and activity tolerance, and increased shortness of breath. He wa s found on echo to have ejection fraction of 15-20%. He was worked up for concern regarding pneumonia or a UTI, but both of those had ruled out. He has had fluctuating status with increased difficulty w ith kidney function, fluid overload and a baseline severe dyspnea. In the context of his end of life planning he does appear to have Stage IV heart failure. He is dyspneic at rest, poor activity toleran ce and over the last few days has had progressive decline. In the context of his goals he had hoped t o return home and part of our conversation today was whether or not he wanted to pursue the support o f hospice and define what was most important to him given his current status. In talking with Gilberto Jang who is his grandson whom the patient identifies as his durable power of health estate planning attorney, they are working currently with a bulk sealer operator to formalize this, the hope is that he coul d return home with support. Most likely hospice if appropriate, but at this point in time, only set u p care was for 3 hours a day with his grandson coming on the weekends. Given his weakness, activity i ntolerance and breathlessness this would not be a safe plan in conversation with the patient. In disc ussing what was most important to the patient, he is somewhat global in his answers. He reports he un derstands he is at the end of life. He is not scared. His reflection is he has lived a good life. He is not set on needing to return home. He would like to just be in a place where he feels safe and wel l cared for. Given our discussion please see below, did discuss the range of a continuum, which inclu ded home with hospice but would need increased caregiving particular on 24 hour care, which at this p oint in time is not feasible, discharge to SNF to see if that improves his functional status with the goal to find his "new normal" and evaluate a safe discharge plan from there including a skilled stay or if the patient does not meet criteria at discharge to a custodial, not [facility], but for end of life care. He is quite hopeful to find some more quality as well as quantity of life. SYMPTOM BURDEN: The patient denies pain. Does report severe fatigue though it does sound like he has been sleeping poorly here as well as has had progressive activity tolerance. He denies nausea. He has not had any trouble with constipation and he does report some anorexia. He has had decreased intake and reports severe dyspnea. He perceives his quality of life right now is quite limited and has been diminishing over the last several months. PAST MEDICAL HISTORY: Includes congestive heart failure, coronary artery disease, history of myocardi al infarction, bladder cancer, BPH, recurrent bladder infections, sleep apnea, depression, arthritis, fatigue and chronic back pain. He has had cataract surgery, cholecystectomy and three bladder surger ies ALLERGIES: NO KNOWN DRUG ALLERGIES. MEDICATIONS: Currently, he is on: 1. Acetaminophen 650 mg q.4h. hours p.r.n. pain 1-4. 2. Acetaminophen/hydrocodone 1 tab q.4h. p.r.n. pain 5-7. 3. Acetazolamide 250 mg b.i.d. 4. Aspirin 81 mg daily. 5. Atorvastatin 20 mg daily. 6. Carvedilol 6.25 mg b.i.d. 7. Enoxaparin 40 mg subcutaneously daily 8. Finasteride 5 mg daily. 9. Furosemide 80 mg IV push b.i.d. 10. Lisinopril 5 mg daily. 11. Multivitamin 1 tab daily. 12. Nystatin cream 1 application t.i.d. 13. Ondansetron 4 mg IV push q.4h. p.r.n. nausea or vomiting. 14. MiraLax 17 grams daily p.r.n. 15. Tamsulosin 0.4 mg daily. CODE STATUS: THE PATIENT IS A DO NOT ATTEMPT RESUSCITATION. PLEASE SEE PALLIATIVE CARE DISCUSSION. WE DID REVIEW AND COMPLETE THE POLST. BRIEF SOCIAL HISTORY: The patient lives independently in a home. He does have some housekeeping suppo rt. He did take care of his up until the time that he could no longer manage her. She was then p ut into [facility] and she was there over a year before she in 2011. He reports it has been fairly rough managing at home; he has mostly done TV dinners. He had been driving at thi s point in time. He had been able to ambulate, though his activity tolerance and ability to get out a nd about was decreasing. He reports his 3 children, the majority of his family is in [place], [place] and [place], [place]. He has 10 grandkids and 18 great grandkids and several great great grandkids. He is working with the trying to finish his will and wrapping up his end of life directions. Unfortun ately, he has not been able to hear or understand bulk sealer operator on the phone so they are working with trying to work throughh this. He had hoped to return home, but looking at what would be a realistic given h is current level of functioning he does admit that this would be somewhat overwhelming for him. MARITAL STATUS: . USE OF ALCOHOL/TOBACCO: None. FAMILY HISTORY: Unknown. PERFORMANCE STATUS: Prior to this hospital episode, he was able to ambulate short distances thought h aving increased difficulty meeting his ADLs. Currently, he is quite short of breath even with convers ation. He has had functional decline throughh his hospitalization thus needing maximum assist in the bed, unclear what his current functional status and will have physical therapy evaluate. REVIEW OF SYSTEMS: ENT: The patient does have mild hearing loss. Denies difficulty with swallowing. CARDIOVASCULAR: Denies current chest pain. Does have shortness of breath with any kind of activity. RESPIRATORY: Denies cough. GASTROINTESTINAL: He denies constipation. Does have frequent stooling. Denies nausea, vomiting. Repor ts poor appetite. GENITOURINARY: Currently has a Torres catheter draining. MUSCULOSKELETAL: He is complaining of deconditioning. INTEGUMENTARY: He complains of discomfort from his rash he has in his groin and pannus. NEUROLOGIC: The patient does keep drifting off to sleep. He is oriented to place and person but diffi culty following the conversation from time to time, but no symptoms of confusion. PSYCHIATRIC: The patient denies depression or anxiety. ENDOCRINE: He has longstanding diabetes, suspect this has been poorly controlled. His A1c was 7.6. HE MATOLOGIC/IMMUNOLOGIC: He has had recurrent UTIs as a residual of his bladder cancer, currently UA wa s negative. Other labs include his chloride is sitting at about 94 yesterday, carbon dioxide 37, BUN 43, creatini ne 1.7, and GFR 39, glucose 194 and his white count has been at 9.0 and his hemoglobin 13.1 and hemat ocrit 40.5. PHYSICAL EXAMINATION: GENERAL APPEARANCE: He does appear quite fatigued, nodding off throughh our visit trying to stay focu sed. He is breathless with any kind of conversation or activity. He does smile quite frequently and d oes attuned during our conversation. EYES: With for some slight periorbital edema. ENT: His mucous membranes are moist. He does have dentures. NECK: His trachea is midline. RESPIRATORY: His breath sounds are diminished, but clear throughhout. CARDIOVASCULAR: His pulse is about 70, blood pressure was 104/67, O2 saturation 96% on 2.5 liters. ABDOMEN: Quite rounded. Bowel sounds hyperactive. SKIN: He does have significant candidiasis in his groin, scrotal folds and pannus. EXTREMITIES: He does have 1+ pedal edema up to about his mid calf. He is having fluid retention in hi s hands up to his mid forearm. He is able to move all extremities on command. PALLIATIVE CARE DISCUSSION: As reiterated above, did discuss what worries him most, he reports he is not worried but he is concerned. He did understand from Dr. Dang that his heart is doing poorly, th is was somewhat of shock to him. He has recognized he has had increased shortness of breath and activ ity tolerance and that he continued to deteriorate overall prior to his admit. He does again recogniz e that he is end of life. He does not mind it and does not really care. He reports he has had a good life. He reports he is sad and worried about leaving people behind but he is not fearful or scared. Irlanda scott did discuss given his current situation again what the options might be in the continuum of care. Soledad scott was understanding that he did have a limited life expectancy and thus hospice might be appropriate, but given his current care situation for him to return home without some improvement in his ability to meet his care needs would be an unsafe plan. He is in agreement that a SNF would be acceptable but he would not like to go to [facility] given his experience with his . I did speak with his grandson Gilberto Jang, [phone], his cell phone is [phone] regarding my concern about him returning home unless they had 24-hour care. Even given 24-hour care in the context of hospice there would need some one to oversee his care and this does not seem feasible given this point in time. I had talked with Ti franck about whether it might be of help to have him down in [place] for his family to oversee his car e. He would be most open to that if the patient was in agreement and would make things given for this next phase much more easy. When I talked to the patient, Morris, about this, he was open to being at a place that it might make mo re sense as far as his family being able to help him and provide support given the fact that [place] it be [place] or [place] was not of importance to him. We did discuss that given his current goals of care about defining thos e further with the POLST form, he had helped filling one out for his , so he is quite familiar wi th it and had talked to Dr. Dang earlier about it. It is my understanding was that he needed origin al redone. We did discuss what was most important him, which is to focus on comfort and end of life a nd comfortable and respectful , he was quite clear DO NOT ATTEMPT RESUSCITATION AND COMFORT ANA URES, but going to SNF for rehabilitation and strengthening was acceptable. The other component was d etermined USE OR LIMITATION OF ANTIBIOTICS WITH COMFORT THE GOAL AND NO MEDICALLY ASSISTED NUTRITI ON. This was signed and was quite clear and able to demonstrate decision making capacity during this process. IMPRESSION: This is an 81-year-old gentleman with stage IV congestive heart failure with ejection fra ction of 15-20% who presents with high symptom burden of dyspnea, activity intolerance and fatigue. H is focus is on quality of life, which at this point in time would include improving his functional st atus to maintain or improve his independence and a safe discharge to a more higher level of setting v ersus home. In the context of the continuum, we did discuss hospice at the point that he either chavo nued to deteriorate and/or had maximized his functional status and quality of life. RECOMMENDATIONS/COUNSELING DONE: 1. Generalized weakness. Would recommend a reeval for physical therapy. In looking at the patient's g oals, he would be willing to look at placement for strengthening with the hope to gain some independe nce. This would also allow support for managing him in his current weakened state and provide safe di scharge plan again with focus to improve his functional status. 2. Advanced heart failure. The patient would given his ejection fraction and breathlessness at rest a nd activity tolerance meet hospice criteria if he was not able to tolerate or transition to a SNF for support of improving his functional status. This was discussed as far as the limitations and support that hospice provide but do need to have a safe care plan in place if patient wants to return home. 3. Advanced care planning. POLST was completed and reviewed, proposed in the continuum. PLAN: OPTIONS 1. Considered SNF placement for improvement of functional status maximizing his independence. 2. Discharge to a SNF for a safe care plan with hospice support both in an area of [place]. 3. The patient would not be able discharge home unless there was a plan for 24-hour care and oversigh t to meet his needs. Will await PT evaluation and recommendations and hopefully be able to transition onto another setting in the next 24-48 hours. 4. Coping with adjustment to illness, did provide psychosocial support counseling, anticipatory wilfred nce, processing of feelings and counseling with DPOA regarding anticipatory guidance as well. TIME SPENT: 75 minutes with greater than 50% of this done in counseling and coordination of care, dolores ghing benefits and burdens of different approaches and choices, anticipatory guidance and coordinatio n with hospitalist, long term care social worker and grandson. JOB #: [id number] EXT JOB #:[id number]
[2017-01-15] MEDS: NYSTATIN CREAM 15 GM TUBE TOP SCH ×3 (06:22→20:53)
[2017-01-15] MEDS: FUROSEMIDE INJ 100mg VIAL 80 MG in SODIUM CHLORIDE 0.9% 50 ML IVP SCH ×2 (06:22→13:47)
[2017-01-15] MEDS: SODIUM CHLORIDE FLUSH 0.9% 10 ML SYRINGE IVP SCH ×3 (06:22→20:53)
[2017-01-15] MEDS: acetaZOLAMIDE 250 MG TABLET PO SCH ×2 (09:12→20:52)
[2017-01-15] MEDS: ENOXAPARIN 40 MG/0.4 ML SYRINGE SUBQ SCH (09:12)
[2017-01-15] MEDS: ASPIRIN EC 81 MG TABLET PO SCH (09:13)
[2017-01-15] MEDS: CARVEDILOL 3.125 MG TABLET PO SCH ×2 (09:13→21:31)
[2017-01-15] MEDS: MIN OIL/DIMETHICON/COCONUT OIL 92 GM TUBE TOP SCH ×2 (09:14→20:53)
[2017-01-15] MEDS: MULTIVITAMIN TABLET PO SCH (09:14)
[2017-01-15] MEDS: FINASTERIDE 5 MG TABLET PO SCH (09:14)
[2017-01-15] MEDS: POLYETHYLENE GLYCOL 3350 17 GM PACKET PO SCH ×2 (09:14→09:21)
[2017-01-15] MEDS: LISINOPRIL 5 MG TABLET PO SCH (09:14)
[2017-01-15] MEDS: TAMSULOSIN 0.4 MG CAPSULE PO SCH (09:15)
--- NOTE | 2017-01-15 18:37 | PROVIDER PROGRESS NOTE ---
Assessment/Plan - Problem List (1) Acute systolic (congestive) heart failure Assessment/Plan: Down nearly 9 KG since admission. Was at 122.47 and now 113.6 KG today Negative 7L in fluid since admission The zaroxyln was stopped 01/12 secondary to renal insufficiency Because his CO2 is up to 38, started diamox 01/13 The plan is to use it for 1 more day to see if will augment his UO without compromising GFR. Dr. Dang had a long conversation about poor prognosis 01/13 wt Mr. Kimbrough. There was a F/U conversation with Gilberto and Donny about end of life decisions. It was thought the patient wanted home but it turns out he would like to try some rehab to see if can get enough strength just to transfer for going to bathroom, sitting up, etc. He also signed a POLST 01/13. DNR Patient has not improved clinically despite all of the diuresis he is elderly with an EF of 15% and may not improve much further Conversational dyspnea, O2 requirement and very SOA with minimal exertion. Plan: Will give patient 24 more hours of diuresis if improvement will attempt to optimize for rehab if patient can participate in rehab otherwise patient would like comfort care and transition to Hospice at a SNF likely in [place] near his son. (2) Acute and chronic respiratory failure with hypoxia Impression: from his CHF. needs O2 2-3 liters even at rest. has been as high as 5 liters and oxymask. continue prn . Patient has been diuresed more than 7L and has had decreased O2 requirement but still very dyspneic and clinically not better (3) CAD (coronary artery disease), zuni coronary artery Impression: he had an elevated troponin on admit peaked at 0.54 does not appear to have been an [place] likely secondary to CHF Qualifiers: [place] vs. transplanted heart: zuni heart Associated angina: without angina Qualified Code(s): I25.10 - Atherosclerotic heart disease of [place] coronary artery without angina pectoris (4) Type 2 diabetes mellitus with complication, without long-term current use of insulin Impression: was on glimeperide as outpt. A1c is 7.6%. Here out goal is to be <200. not aiming for strict control in view of end stage CHF. is eating 75% to 100% of food. Blood glucose stable - Current Meds Current Meds: Current Medications Generic Name Dose Route Start Last Admin Trade Name Freq PRN Reason Stop Dose Admin Acetazolamide 250 mg 01/13/17 09:00 01/15/17 09:12 Diamox PO 250 mg BID RAJIV Administration Aspirin 81 mg 01/12/17 13:00 01/15/17 09:13 Ecotrin PO 81 mg DAILY RAJIV Administration Atorvastatin Calcium 20 mg 01/12/17 21:00 01/14/17 21:57 Lipitor PO 20 mg QPM RAJIV Administration Carvedilol 6.25 mg 01/12/17 13:00 01/15/17 09:13 Coreg PO Not Given BID RAJIV Enoxaparin Sodium 40 mg 01/11/17 09:00 01/15/17 09:12 Lovenox SUBQ 40 mg DAILY RAJIV Administration Finasteride 5 mg 01/12/17 13:00 01/15/17 09:14 Proscar PO 5 mg DAILY RAJIV Administration Furosemide 80 mg/ Sodium 58 mls @ 116 mls/hr 01/15/17 06:00 01/15/17 13:47 Chloride IVP 116 mls/hr BIDDIURETIC RAJIV Administration Lisinopril 5 mg 01/13/17 09:00 01/15/17 09:14 Zestril PO Not Given DAILY RAJIV Mineral Oil 1 applic 01/10/17 21:00 01/15/17 09:14 Cavilon TOP 1 applic BID RAJVI Administration Multivitamins 1 tab 01/12/17 13:00 01/15/17 09:14 Theragran PO 1 tab DAILY RAJIV Administration Nystatin 1 applic 01/11/17 15:00 01/15/17 15:52 Mycostatin Cream TOP Not Given TID RAJIV Polyethylene Glycol 17 gm 01/11/17 09:00 01/15/17 09:21 Miralax PO Not Given DAILY RAJIV Sodium Chloride 10 ml 01/10/17 14:30 01/12/17 09:12 Normal Saline Flush 0.9% IVP 10 ml PRN PRN Administration NEEDED PER PROVIDER ORDERS Sodium Chloride 10 ml 01/10/17 22:00 01/15/17 13:47 Normal Saline Flush 0.9% IVP 10 ml Q8HR RAJIV Administration Tamsulosin HCl 0.4 mg 01/12/17 13:00 01/15/17 09:15 Flomax PO 0.4 mg DAILY RAJIV Administration - Lab Result Lab results reviewed: Yes Fish Bone Diagrams: 01/13/17 05:30 01/14/17 14:40 - EKG Results EKG Interpreted Independently: Yes - Diagnostic Imaging Results Diagnostic Imaging Results: positive: Final report reviewed - Additional Planning Condition/Complexity: Guarded Consult/Specialty: PT Plan Discussed with:: Patient, Family, Legal Gardian Time Spent: 31-60 minutes Subjective - Subjective Patient Reports: Shortness of Breath (Very short of breath with conversational dyspnea. No chest pain, no fevers, no cough, no abdominal pain.) Nursing Reports: No Complaints Objective Vital Signs: Vital Signs - 24 hr 01/15/17 01/15/17 01/15/17 00:56 08:56 12:14 Temperature 36.4 C L 36.4 C L Heart Rate [ 57 L 70 Brachial] Heart Rate [ 83 Supine] Respiratory 22 20 Rate Blood Pressure 97/61 100/63 [Left Brachial artery] Blood Pressure 105/64 [Supine] O2 Saturation 97 93 01/15/17 16:06 Temperature 36.4 C L Heart Rate [ 77 Brachial] Heart Rate [ Supine] Respiratory 24 Rate Blood Pressure 93/55 L [Left Brachial artery] Blood Pressure [Supine] O2 Saturation 95 Oxygen O2 Source [With Activity] Oxymask O2 Source [Without Activity] 96% on 3L O2 Source Nasal cannula I&O (Last 24 Hrs): Intake and Output Totals x24h 01/13/17 01/14/17 01/15/17 23:59 23:59 23:59 Intake Total 1562 1370 1140 Output Total 2700 2800 2225 Balance -1138 -1430 -1085 General: Alert, Oriented x3, Cooperative, Moderate distress (conversational dyspnea, short of air) HEENT: Atraumatic, PERRLA, EOMI, Mucous membr. moist/pink Neck: Supple, No thyromegaly, +2 carotid pulse wo bruit, No LAD, Other (+JVD) Lymphatic: no adenopathy Neuro: Alert, Non Focal, CN 2-12 Grossly Intact, Oriented Times 3 Cardiovascular: Regular rate, Normal S1, Normal S2, No murmurs Respiratory: Rales (Bilateral crackles 1/2 way up the lung) Abdomen: Normal bowel sounds, Soft, Other (abdominal wall edema) Extremities: Normal pulses, Other (BIlateral LE edema) Skin: No rashes, No breakdown, No significant lesion - Results Results: Laboratory Results WBC 9.0 x10^3/uL (4.8-10.8) 01/13/17 05:30 RBC 4.30 10^6/uL (4.70-6.10) L 01/13/17 05:30 Hgb 13.1 g/dL (14.0-18.0) L 01/13/17 05:30 Hct 40.5 % (42.0-52.0) L 01/13/17 05:30 MCV 94.1 fL (80.0-94.0) H 01/13/17 05:30 MCH 30.4 pg (27.0-31.0) 01/13/17 05:30 MCHC 32.3 g/dL (32.0-36.0) 01/13/17 05:30 RDW 13.8 % (12.0-15.0) 01/13/17 05:30 Plt Count 139 10^3/uL (130-450) 01/13/17 05:30 MPV 9.9 fL (7.4-11.4) 01/13/17 05:30 Neut # 7.3 10^3/uL (1.5-6.6) H 01/13/17 05:30 Lymph # 0.9 10^3/uL (1.5-3.5) L 01/13/17 05:30 [place] # 0.6 10^3/uL (0.0-1.0) 01/13/17 05:30 Eos # 0.1 10^3/uL (0.0-0.7) 01/13/17 05:30 Baso # 0.1 10^3/uL (0.0-0.1) 01/13/17 05:30 Absolute Nucleated RBC 0.01 x10^3/uL 01/13/17 05:30 Nucleated RBCs 0.1 /100WBC 01/13/17 05:30 Sodium 139 mmol/L (135-145) 01/14/17 14:40 Potassium 3.6 mmol/L (3.5-5.0) 01/14/17 14:40 Chloride 91 mmol/L (101-111) L 01/14/17 14:40 Carbon Dioxide 37 mmol/L (21-32) H 01/14/17 14:40 Anion Gap 11.0 (6-13) 01/14/17 14:40 BUN 56 mg/dL (6-20) H 01/14/17 14:40 Creatinine 1.7 mg/dL (0.6-1.2) H 01/14/17 14:40 Estimated GFR (MDRD) 39 (>89) L 01/14/17 14:40 Glucose 198 mg/dL (70-100) H 01/14/17 14:40 POC Whole Bld Glucose 132 mg/dL (70 - 100) H 01/11/17 08:03 Glycated Hemoglobin 7.6 % (4.6-6.2) H 01/13/17 05:30 Estim Average Glucose 171 (70-100) H 01/13/17 05:30 Lactic Acid 1.3 mmol/L (0.5-2.2) 01/10/17 12:35 Calcium 9.5 mg/dL (8.5-10.3) 01/14/17 14:40 Magnesium 2.1 mg/dL (1.7-2.8) 01/10/17 14:30 Total Bilirubin 0.9 mg/dL (0.2-1.0) 01/13/17 05:30 AST 21 IU/L (10-42) 01/13/17 05:30 ALT 23 IU/L (10-60) 01/13/17 05:30 Alkaline Phosphatase 49 IU/L (42-121) 01/13/17 05:30 Troponin I 0.39 ng/mL (<0.49) 01/14/17 14:40 B-Natriuretic Peptide 1886 pg/mL (5-100) H 01/10/17 12:15 Total Protein 6.7 g/dL (6.7-8.2) 01/13/17 05:30 Albumin 3.6 g/dL (3.2-5.5) 01/13/17 05:30 Globulin 3.1 g/dL (2.1-4.2) 01/13/17 05:30 Albumin/Globulin Ratio 1.2 (1.0-2.2) 01/13/17 05:30 Lipase 36 U/L (22-51) 01/10/17 12:15 Urine Color YELLOW 01/10/17 20:10 Urine Clarity SL. CLOUDY (CLEAR) 01/10/17 20:10 Urine pH 5.5 PH (5.0-7.5) 01/10/17 20:10 Ur Specific [place] 1.015 (1.002-1.030) 01/10/17 20:10 Urine Protein NEGATIVE mg/dL (NEGATIVE) 01/10/17 20:10 Urine Glucose (UA) NEGATIVE mg/dL (NEGATIVE) 01/10/17 20:10 Urine Ketones NEGATIVE mg/dL (NEGATIVE) 01/10/17 20:10 Urine Occult Blood LARGE (NEGATIVE) H 01/10/17 20:10 Urine Nitrite NEGATIVE (NEGATIVE) 01/10/17 20:10 Urine Bilirubin NEGATIVE (NEGATIVE) 01/10/17 20:10 Urine Urobilinogen 0.2 (NORMAL) E.U./dL (NORMAL) 01/10/17 20:10 Ur Leukocyte Esterase MODERATE (NEGATIVE) H 01/10/17 20:10 Urine RBC TNTC /HPF (0-5) H 01/10/17 20:10 Urine WBC >25 /HPF (0-3) H 01/10/17 20:10 Ur Squamous Epith Cells RARE Squamous (<= Few) 01/10/17 20:10 Urine Bacteria Few /HPF (None Seen) 01/10/17 20:10 Ur Microscopic Review INDICATED 01/10/17 20:10 Urine Culture Comments INDICATED 01/10/17 20:10 - Procedures Procedures: Procedures CATARAC PHACOEMULS/ASPIR (12/01/14) INSERT LENS AT CATAR EXT (12/01/14)
[2017-01-15] MEDS: ATORVASTATIN 10 MG TABLET PO SCH (20:51)
[2017-01-16] MEDS: SODIUM CHLORIDE FLUSH 0.9% 10 ML SYRINGE IVP SCH ×3 (06:03→20:51)
[2017-01-16] MEDS: FUROSEMIDE INJ 100mg VIAL 80 MG in SODIUM CHLORIDE 0.9% 50 ML IVP SCH ×2 (06:03→17:37)
[2017-01-16] MEDS: NYSTATIN CREAM 15 GM TUBE TOP SCH ×3 (06:04→20:51)
--- NOTE | 2017-01-16 06:15 | CONSULTATION NOTE ---
DATE OF CONSULTATION: 01/15/2017 00:00:00 REQUESTING PROVIDER: Akash Dang M.D. TIME OF VISIT: 10:30 to 11:00 a.m.; 11:15 to 11:45 TOPIC: Follow-up palliative care consult. Thank you for asking the Palliative Care Consult Service to be involved in the care of your patient. I am asked to continue defining goals of care, as well as evaluate for transition planning. BRIEF HISTORY OF PRESENT ILLNESS UPDATE: This is a raymundo 81-year-old gentleman who has increasing s ymptoms of his exacerbation of CHF with lower extremity edema, decreased functional status and activi ty tolerance, and increased shortness of breath. He presents today with difficulty with conversation and extreme dyspnea. He is known to have an ejection fraction of 15% to 20%. He does have stage IV heart failure. Currently, given the severity of his illness, he has continued to show little improv ement. It is with understanding both the grandson, Gilberto Jang, and the patient recognize this is a serious situation at best. The hope had been, though, with some improvement the patient would regai n some independence. FAMILY DISCUSSION WHO IS PRESENT: Gilberto Jang and his ; the patient; Bipin Coats M.D.; myself; and Josefina calderon, Palliative Care Nurse Practitioner. In reviewing the options as far as the fluctuating goals of care, Gilberto had come in last night. They were able to meet with a stockroom inventory clerk and get his legal affairs in order. The patient had expressed wanting to be somewhere closer to home. I did review with Herminia barone and the patient the only fdc available on [facility] would be [facility]. The patient did express his desire not to return there. This is where his had , and he did not feel the y would provide adequate care. In the context of looking forward to going [place] to [facility] down to [place], the decision was revisited again, though concerned about the distance of transfe rring him closer to where Gilberto, his grandson, could oversee his care. We are waiting to see if th e patient will improve, particularly regarding activity, to be able to participate in rehabilitation services. It was agreed to give another 24 hours. Had explored the option of possible [facility], w [facility] a Hospice house, but currently they have no openings. The patient is quite appreciative of his family support. They have been coming and visiting, per Mat bueno, and feels that like that has been somewhat exhausting, though encouraging the patient as far as wrapping up his end of life goodbyes. The patient is in good spirits today. He denies that he is f earful. He does not present with any anxiety. He feels somewhat content now that he has his legal a ffairs in order. He is quite willing to defer to Gilberto for decision-making and is aware that he is seriously ill. Certainly, continuing to hope for the best, with small improvements, but also prepar ed for the worst and that he may be transitioning and focusing on comfort only. All are in agreement that this would be the most appropriate plan at this point. This was shared with the Instrument Specialist as far as needing options for looking at placement in the [place] area. REVIEW OF SYSTEMS: The patient continues with a bright red excoriated rash in his left groin. It is quite moist and uncomfortable. He denies chest pain. He reports shortness of breath. He denies an y other kind of pain or discomfort. He denies feeling upset; just somewhat sad. PHYSICAL EXAMINATION RESPIRATORY: On physical exam, the patient does have crackles about long-term up. It is difficult for him to take a deep breath. He has no cough, but he is having difficulty talking with his breathless ness. GASTROINTESTINAL: His abdomen is quite large and taut. He does have distant bowel tones. His bowel s have been moving. GENITOURINARY: He does have a catheter that is draining clear yellow urine. EXTREMITIES: He does have 1 to 2+ pitting pedal edema up to about mid-calf. He does have some third -spacing and fluid in his upper extremities as well. IMPRESSION SUMMARY: This is a raymundo 81-year-old gentleman with stage IV congestive heart failure, w ith an ejection fraction of 15% to 20%, presenting with a high burden of dyspnea, activity intoleranc e, fatigue, and fluid overload. He continues to remain quite tenuous as far as his cardiac and renal status. The patient is aware of the seriousness of his situation, and he is hoping for small improv ements, but also recognizing and feeling at peace if he needs to transition to comfort measures. RECOMMENDATIONS AND COUNSELING DONE 1. Generalized weakness: Again, if the patient is able to tolerate, he would benefit from ongoing th erapy support. The patient's goal is to be somewhat more independent as far as being able to meet ju st his minor ADLs. 2. Dyspnea: The patient does continue to decline. May consider adding some concentrated morphine 20 mg/mL, 5 mg every 2 to 3 hours p.r.n. dyspnea for any kind of signs or symptoms of respiratory distr ess. 3. Candidiasis in groin folds: May consider given his morbid obesity changing from the cream to powd er to manage his candidiasis. 4. Advanced care planning: [place] [facility]. This is not a po ssibility, so this defaulted to fdc placement, either with or without skilled stay, looking at transitioning to [place], closer to his grandson for oversight and support. TIME SPENT: 60 minutes, with greater than 50% of this done in counseling, coordination of care, prov iding psychosocial to the patient and the family, and anticipatory guidance. JOB #: [id number] EXT JOB #:[id number]
[2017-01-16 09:05] LABS: BASOPHILS # (AUTO) 0.1 10^3/uL (0.0-0.1); BASOPHILS % (AUTO) 0.7 %; EOSINOPHILS # (AUTO) 0.2 10^3/uL (0.0-0.7); EOSINOPHILS % (AUTO) 2.8 %; HGB - HEMOGLOBIN 14.6 g/dL (14.0-18.0); LYMPHOCYTES # (AUTO) 0.9 10^3/uL (1.5-3.5); LYMPHOCYTES % (AUTO) 12.3 %; MEAN CORPUSCULAR HEMOGLOBIN 30.4 pg (27.0-31.0); MEAN CORPUSCULAR HGB CONC 33.1 g/dL (32.0-36.0); MEAN CORPUSCULAR VOLUME 91.8 fL (80.0-94.0); MEAN PLATELET VOLUME 9.9 fL (7.4-11.4); MONOCYTES # (AUTO) 0.6 10^3/uL (0.0-1.0); NEUTROPHILS # (AUTO) 5.8 10^3/uL (1.5-6.6); NEUTROPHILS % (AUTO) 76.2 %; RED BLOOD COUNT 4.79 10^6/uL (4.70-6.10); RED CELL DISTRIBUTION WIDTH 13.6 % (12.0-15.0); UNCORRECTED WHITE BLOOD COUNT 7.6 x10^3/uL; WHITE BLOOD COUNT 7.6 x10^3/uL (4.8-10.8)
[2017-01-16] MEDS: acetaZOLAMIDE 250 MG TABLET PO SCH ×2 (09:08→20:50)
[2017-01-16] MEDS: ASPIRIN EC 81 MG TABLET PO SCH (09:08)
[2017-01-16] MEDS: CARVEDILOL 3.125 MG TABLET PO SCH ×2 (09:08→20:50)
[2017-01-16] MEDS: TAMSULOSIN 0.4 MG CAPSULE PO SCH (09:09)
[2017-01-16] MEDS: LISINOPRIL 5 MG TABLET PO SCH (09:09)
[2017-01-16] MEDS: MULTIVITAMIN TABLET PO SCH (09:09)
[2017-01-16] MEDS: FINASTERIDE 5 MG TABLET PO SCH (09:10)
[2017-01-16] MEDS: POLYETHYLENE GLYCOL 3350 17 GM PACKET PO SCH (09:10)
[2017-01-16] MEDS: ENOXAPARIN 40 MG/0.4 ML SYRINGE SUBQ SCH (09:10)
[2017-01-16 09:19] LABS: ALBUMIN/GLOBULIN RATIO 1.2 (1.0-2.2); BILIRUBIN,TOTAL 1.2 mg/dL (0.2-1.0); BUN - BLOOD UREA NITROGEN 47 mg/dL (6-20); CARBON DIOXIDE - CO2 33 mmol/L (21-32); CHLORIDE 96 mmol/L (101-111); CREATININE 1.6 mg/dL (0.6-1.2); GFR - MDRD 41 (>89); GLUCOSE 230 mg/dL (70-100); MAGNESIUM 2.3 mg/dL (1.7-2.8); PHOSPHORUS 2.4 mg/dL (2.5-4.6); POTASSIUM 3.6 mmol/L (3.5-5.0); SODIUM 139 mmol/L (135-145); TOTAL PROTEIN 7.4 g/dL (6.7-8.2)
[2017-01-16] MEDS: MIN OIL/DIMETHICON/COCONUT OIL 92 GM TUBE TOP SCH ×2 (14:33→20:51)
[2017-01-16] MEDS: NEUTRA-PHOS 250 MG TABLET PO SCH ×2 (17:28→17:38)
[2017-01-16] MEDS: SPIRONOLACTONE 25 MG TABLET PO SCH (17:36)
--- NOTE | 2017-01-16 18:23 | PROVIDER PROGRESS NOTE ---
Assessment/Plan - Problem List (1) Acute systolic (congestive) heart failure Assessment/Plan: Down 11 KG since admission. Was at 122.47 and now 111 KG today Negative 9L in fluid since admission The zaroxyln was stopped 01/12 secondary to renal insufficiency Because his CO2 is up to 38, started diamox 01/[address] Dang had a long conversation about poor prognosis 01/13 [address] Mr. Kimbrough. There was a F/U conversation with Gilberto and Donny about end of life decisions. It was thought the patient wanted home but it turns out he would like to try some rehab to see if can get enough strength just to transfer for going to bathroom, sitting up, etc. He also signed a POLST 01/13. DNR Patient finally showing improvement today as he was able to get up and into chair and no longer having conversational dyspnea He feels better and would like to work with PT We will add lisinopril and aldactone to his regimen today Plan: Patients insurance denied SNF and recommended hospice for the patient Patient is however improving and would like to try to go to rehab if patient can afford it will try to get him to rehab in next 1-2 days but if he cannot afford it patient will likely have to go hospice. I would recommend hospice with continued care for CHF to optimize quality of life. Patient would qualify for hospice as with his EF of 15% and decompensation his prognosis is less than 6 months. (2) Acute and chronic respiratory failure with hypoxia Impression: from his CHF. needs O2 2 liters even at rest. has been as high as 5 liters and oxymask. continue prn . Patient has been diuresed more than 9L and has had decreased O2 requirement and finally is showing improvement (3) CAD (coronary artery disease), cahto coronary artery Impression: he had an elevated troponin on admit peaked at 0.54 does not appear to have been an MD likely secondary to CHF Qualifiers: [place] vs. transplanted heart: cahto heart Associated angina: without angina Qualified Code(s): I25.10 - Atherosclerotic heart disease of cahto coronary artery without angina pectoris (4) Type 2 diabetes mellitus with complication, without long-term current use of insulin Impression: was on glimeperide as outpt. A1c is 7.6%. Here out goal is to be <200. not aiming for strict control in view of end stage CHF. is eating 75% to 100% of food. Blood glucose stable - Current Meds Current Meds: Current Medications Generic Name Dose Route Start Last Admin Trade Name Freq PRN Reason Stop Dose Admin Acetazolamide 250 mg 01/13/17 09:00 01/16/17 09:08 Diamox PO 250 mg BID RAJIV Administration Aspirin 81 mg 01/12/17 13:00 01/16/17 09:08 Ecotrin PO 81 mg DAILY RAJIV Administration Atorvastatin Calcium 20 mg 01/12/17 21:00 01/15/17 20:51 Lipitor PO 20 mg QPM RAJIV Administration Carvedilol 6.25 mg 01/12/17 13:00 01/16/17 09:08 Coreg PO 6.25 mg BID RAJIV Administration Enoxaparin Sodium 40 mg 01/11/17 09:00 01/16/17 09:10 Lovenox SUBQ 40 mg DAILY RAJIV Administration Finasteride 5 mg 01/12/17 13:00 01/16/17 09:10 Proscar PO 5 mg DAILY RAJIV Administration Furosemide 80 mg/ Sodium 58 mls @ 116 mls/hr 01/15/17 06:00 01/16/17 17:37 Chloride IVP 116 mls/hr BIDDIURETIC RAJIV Administration Lisinopril 5 mg 01/13/17 09:00 01/16/17 09:09 Zestril PO 5 mg DAILY RAJIV Administration Mineral Oil 1 applic 01/10/17 21:00 01/16/17 14:33 Cavilon TOP Not Given BID RAJIV Multivitamins 1 tab 01/12/17 13:00 01/16/17 09:09 Theragran PO 1 tab DAILY RAJIV Administration Nystatin 1 applic 01/11/17 15:00 01/16/17 17:37 Mycostatin Cream TOP 1 applic TID RAJIV Administration Polyethylene Glycol 17 gm 01/11/17 09:00 01/16/17 09:10 Miralax PO 17 gm DAILY RAJIV Administration Sodium Chloride 10 ml 01/10/17 14:30 01/12/17 09:12 Normal Saline Flush 0.9% IVP 10 ml PRN PRN Administration NEEDED PER PROVIDER ORDERS Sodium Chloride 10 ml 01/10/17 22:00 01/16/17 17:38 Normal Saline Flush 0.9% IVP 10 ml Q8HR RAJIV Administration Sodium Phosphate 250 mg 01/16/17 12:00 01/16/17 17:38 K-Phos Neutral PO Not Given TIDWM RAJIV Spironolactone 25 mg 01/16/17 12:00 01/16/17 17:36 Aldactone PO 25 mg DAILY RAJIV Administration Tamsulosin HCl 0.4 mg 01/12/17 13:00 01/16/17 09:09 Flomax PO 0.4 mg DAILY RAJIV Administration - Lab Result Lab results reviewed: Yes Fish Bone Diagrams: 01/16/17 08:55 01/16/17 08:55 - EKG Results EKG Interpreted Independently: Yes - Diagnostic Imaging Results Diagnostic Imaging Results: positive: Final report reviewed - Additional Planning Condition/Complexity: Guarded My Orders: My Active Orders 01/16/17 12:00 Neutra-Phos [K-Phos Neutral] 250 mg PO TIDWM Spironolactone [Aldactone] 25 mg PO DAILY 01/17/17 05:00 BNP - B-NATRIURETIC PEPTIDE [IAI] DAILYLAB CBC - COMP BLD CT W/AUTO DIFF [HEME] DAILYLAB CMP, RFLX TO IONIZED CA IF [CHEM] DAILYLAB MAGNESIUM [CHEM] DAILYLAB PHOSPHORUS [CHEM] DAILYLAB Consult/Specialty: PT Plan Discussed with:: Patient, Family Time Spent: 31-60 minutes Subjective - Subjective Patient Reports: Feeling Better (Still gets short of breath with exertion but no longer with conversation. He is still very weak. Denies any chest pain.) Nursing Reports: No Complaints Objective Vital Signs: Vital Signs - 24 hr 01/15/17 01/16/17 01/16/17 20:46 00:53 09:06 Temperature 36.7 C 36.3 C L Heart Rate [ 70 73 82 Brachial] Respiratory 24 16 16 Rate Blood Pressure 113/72 96/56 L 103/66 [Left Brachial artery] O2 Saturation 96 94 96 01/16/17 01/16/17 14:35 16:14 Temperature 36.2 C L Heart Rate [ 78 Brachial] Respiratory 22 Rate Blood Pressure 82/58 L 92/87 H [Left Brachial artery] O2 Saturation 96 Oxygen O2 Source [With Activity] Oxymask O2 Source [Without Activity] 96% on 3L O2 Source Nasal cannula I&O (Last 24 Hrs): Intake and Output Totals x24h 01/14/17 01/15/17 01/16/17 23:59 23:59 23:59 Intake Total 1370 1390 530 Output Total 5072 7913 6856 Balance -1430 -5845 -1545 General: Alert, Oriented x3, Cooperative, Mild distress (Short of breath) HEENT: Atraumatic, PERRLA, EOMI, Mucous membr. moist/pink Neck: Supple, No thyromegaly, +2 carotid pulse wo bruit, Other (JVD) Neuro: Alert, Non Focal, CN 2-12 Grossly Intact, Oriented Times 3 Cardiovascular: Regular rate, Normal S1, Normal S2, No murmurs Respiratory: Chest non-tender, Rales (bilateral improved) Abdomen: Normal bowel sounds, Soft, No tenderness, No hepatospenomegaly, Other ( abd wall edema) Extremities: No clubbing, No cyanosis, Normal pulses, Other (BLLE improved) Skin: No rashes, No breakdown, No significant lesion - Results Results: Laboratory Results WBC 7.6 x10^3/uL (4.8-10.8) 01/16/17 08:55 RBC 4.79 10^6/uL (4.70-6.10) 01/16/17 08:55 Hgb 14.6 g/dL (14.0-18.0) 01/16/17 08:55 Hct 44.0 % (42.0-52.0) 01/16/17 08:55 MCV 91.8 fL (80.0-94.0) 01/16/17 08:55 MCH 30.4 pg (27.0-31.0) 01/16/17 08:55 MCHC 33.1 g/dL (32.0-36.0) 01/16/17 08:55 RDW 13.6 % (12.0-15.0) 01/16/17 08:55 Plt Count 167 10^3/uL (130-450) 01/16/17 08:55 MPV 9.9 fL (7.4-11.4) 01/16/17 08:55 Neut # 5.8 10^3/uL (1.5-6.6) 01/16/17 08:55 Lymph # 0.9 10^3/uL (1.5-3.5) L 01/16/17 08:55 [place] # 0.6 10^3/uL (0.0-1.0) 01/16/17 08:55 Eos # 0.2 10^3/uL (0.0-0.7) 01/16/17 08:55 Baso # 0.1 10^3/uL (0.0-0.1) 01/16/17 08:55 Absolute Nucleated RBC 0.00 x10^3/uL 01/16/17 08:55 Nucleated RBCs 0.0 /100WBC 01/16/17 08:55 Sodium 139 mmol/L (135-145) 01/16/17 08:55 Potassium 3.6 mmol/L (3.5-5.0) 01/16/17 08:55 Chloride 96 mmol/L (101-111) L 01/16/17 08:55 Carbon Dioxide 33 mmol/L (21-32) H 01/16/17 08:55 Anion Gap 10.0 (6-13) 01/16/17 08:55 BUN 47 mg/dL (6-20) H 01/16/17 08:55 Creatinine 1.6 mg/dL (0.6-1.2) H 01/16/17 08:55 Estimated GFR (MDRD) 41 (>89) L 01/16/17 08:55 Glucose 230 mg/dL (70-100) H 01/16/17 08:55 POC Whole Bld Glucose 132 mg/dL (70 - 100) H 01/11/17 08:03 Glycated Hemoglobin 7.6 % (4.6-6.2) H 01/13/17 05:30 Estim Average Glucose 171 (70-100) H 01/13/17 05:30 Lactic Acid 1.3 mmol/L (0.5-2.2) 01/10/17 12:35 Calcium 10.0 mg/dL (8.5-10.3) 01/16/17 08:55 Ionized Calcium NO 01/16/17 08:55 Phosphorus 2.4 mg/dL (2.5-4.6) L 01/16/17 08:55 Magnesium 2.3 mg/dL (1.7-2.8) 01/16/17 08:55 Total Bilirubin 1.2 mg/dL (0.2-1.0) H 01/16/17 08:55 AST 22 IU/L (10-42) 01/16/17 08:55 ALT 26 IU/L (10-60) 01/16/17 08:55 Alkaline Phosphatase 53 IU/L (42-121) 01/16/17 08:55 Troponin I 0.39 ng/mL (<0.49) 01/14/17 14:40 B-Natriuretic Peptide 1137 pg/mL (5-100) H 01/16/17 08:55 Total Protein 7.4 g/dL (6.7-8.2) 01/16/17 08:55 Albumin 4.1 g/dL (3.2-5.5) 01/16/17 08:55 Globulin 3.3 g/dL (2.1-4.2) 01/16/17 08:55 Albumin/Globulin Ratio 1.2 (1.0-2.2) 01/16/17 08:55 Lipase 36 U/L (22-51) 01/10/17 12:15 Urine Color YELLOW 01/10/17 20:10 Urine Clarity SL. CLOUDY (CLEAR) 01/10/17 20:10 Urine pH 5.5 PH (5.0-7.5) 01/10/17 20:10 Ur Specific [place] 1.015 (1.002-1.030) 01/10/17 20:10 Urine Protein NEGATIVE mg/dL (NEGATIVE) 01/10/17 20:10 Urine Glucose (UA) NEGATIVE mg/dL (NEGATIVE) 01/10/17 20:10 Urine Ketones NEGATIVE mg/dL (NEGATIVE) 01/10/17 20:10 Urine Occult Blood LARGE (NEGATIVE) H 01/10/17 20:10 Urine Nitrite NEGATIVE (NEGATIVE) 01/10/17 20:10 Urine Bilirubin NEGATIVE (NEGATIVE) 01/10/17 20:10 Urine Urobilinogen 0.2 (NORMAL) E.U./dL (NORMAL) 01/10/17 20:10 Ur Leukocyte Esterase MODERATE (NEGATIVE) H 01/10/17 20:10 Urine RBC TNTC /HPF (0-5) H 01/10/17 20:10 Urine WBC >25 /HPF (0-3) H 01/10/17 20:10 Ur Squamous Epith Cells RARE Squamous (<= Few) 01/10/17 20:10 Urine Bacteria Few /HPF (None Seen) 01/10/17 20:10 Ur Microscopic Review INDICATED 01/10/17 20:10 Urine Culture Comments INDICATED 01/10/17 20:10 - Procedures Procedures: Procedures CATARAC PHACOEMULS/ASPIR (12/01/14) INSERT LENS AT CATAR EXT (12/01/14)
[2017-01-16] MEDS ORDERED: NEUTRA-PHOS 250 MG TABLET PO SCH (20:27)
[2017-01-16] MEDS: ATORVASTATIN 10 MG TABLET PO SCH (20:50)
[2017-01-17] MEDS: traZODone 50 MG TABLET PO SCH ×2 (01:00→21:05)
[2017-01-17] MEDS: FUROSEMIDE INJ 100mg VIAL 80 MG in SODIUM CHLORIDE 0.9% 50 ML IVP SCH ×2 (06:04→14:23)
[2017-01-17] MEDS: SODIUM CHLORIDE FLUSH 0.9% 10 ML SYRINGE IVP SCH ×3 (06:08→21:06)
[2017-01-17] MEDS: NYSTATIN CREAM 15 GM TUBE TOP SCH ×3 (06:08→21:06)
[2017-01-17 06:21] LABS: BASOPHILS # (AUTO) 0.1 10^3/uL (0.0-0.1); BASOPHILS % (AUTO) 0.9 %; EOSINOPHILS # (AUTO) 0.2 10^3/uL (0.0-0.7); EOSINOPHILS % (AUTO) 2.9 %; HCT - HEMATOCRIT 44.5 % (42.0-52.0); HGB - HEMOGLOBIN 14.5 g/dL (14.0-18.0); LYMPHOCYTES # (AUTO) 1.1 10^3/uL (1.5-3.5); LYMPHOCYTES % (AUTO) 17.9 %; MEAN CORPUSCULAR HEMOGLOBIN 30.2 pg (27.0-31.0); MEAN CORPUSCULAR HGB CONC 32.6 g/dL (32.0-36.0); MEAN CORPUSCULAR VOLUME 92.7 fL (80.0-94.0); MEAN PLATELET VOLUME 9.8 fL (7.4-11.4); MONOCYTES # (AUTO) 0.7 10^3/uL (0.0-1.0); MONOCYTES % (AUTO) 10.6 %; NEUTROPHILS # (AUTO) 4.3 10^3/uL (1.5-6.6); NEUTROPHILS % (AUTO) 67.7 %; RED CELL DISTRIBUTION WIDTH 13.7 % (12.0-15.0); UNCORRECTED WHITE BLOOD COUNT 6.4 x10^3/uL; WHITE BLOOD COUNT 6.4 x10^3/uL (4.8-10.8)
[2017-01-17 06:38] LABS: ALBUMIN/GLOBULIN RATIO 1.1 (1.0-2.2); BILIRUBIN,TOTAL 0.9 mg/dL (0.2-1.0); BUN - BLOOD UREA NITROGEN 51 mg/dL (6-20); CALCIUM 9.9 mg/dL (8.5-10.3); CARBON DIOXIDE - CO2 33 mmol/L (21-32); CHLORIDE 97 mmol/L (101-111); CREATININE 1.7 mg/dL (0.6-1.2); GFR - MDRD 39 (>89); GLUCOSE 163 mg/dL (70-100); MAGNESIUM 2.4 mg/dL (1.7-2.8); PHOSPHORUS 3.3 mg/dL (2.5-4.6); POTASSIUM 3.4 mmol/L (3.5-5.0); SODIUM 141 mmol/L (135-145); TOTAL PROTEIN 6.8 g/dL (6.7-8.2)
[2017-01-17] MEDS: MULTIVITAMIN TABLET PO SCH (10:17)
[2017-01-17] MEDS: NEUTRA-PHOS 250 MG TABLET PO SCH ×3 (10:18→18:05)
[2017-01-17] MEDS: SPIRONOLACTONE 25 MG TABLET PO SCH (10:18)
[2017-01-17] MEDS: CARVEDILOL 3.125 MG TABLET PO SCH ×2 (10:18→21:05)
[2017-01-17] MEDS: FINASTERIDE 5 MG TABLET PO SCH (10:19)
[2017-01-17] MEDS: LISINOPRIL 5 MG TABLET PO SCH (10:19)
[2017-01-17] MEDS: ENOXAPARIN 40 MG/0.4 ML SYRINGE SUBQ SCH (10:19)
[2017-01-17] MEDS: TAMSULOSIN 0.4 MG CAPSULE PO SCH (10:19)
[2017-01-17] MEDS: ASPIRIN EC 81 MG TABLET PO SCH (10:19)
[2017-01-17] MEDS: MIN OIL/DIMETHICON/COCONUT OIL 92 GM TUBE TOP SCH ×2 (10:20→21:06)
[2017-01-17] MEDS: POLYETHYLENE GLYCOL 3350 17 GM PACKET PO SCH (10:20)
[2017-01-17] MEDS: ATORVASTATIN 10 MG TABLET PO SCH (21:04)
[2017-01-18] MEDS: SODIUM CHLORIDE FLUSH 0.9% 10 ML SYRINGE IVP SCH ×2 (05:58→14:05)
[2017-01-18] MEDS: FUROSEMIDE INJ 100mg VIAL 80 MG in SODIUM CHLORIDE 0.9% 50 ML IVP SCH (05:58)
[2017-01-18] MEDS: NYSTATIN CREAM 15 GM TUBE TOP SCH ×2 (05:59→14:05)
[2017-01-18] MEDS: FINASTERIDE 5 MG TABLET PO SCH (09:16)
[2017-01-18] MEDS: MULTIVITAMIN TABLET PO SCH (09:16)
[2017-01-18] MEDS: TAMSULOSIN 0.4 MG CAPSULE PO SCH (09:16)
[2017-01-18] MEDS: LISINOPRIL 5 MG TABLET PO SCH (09:16)
[2017-01-18] MEDS: ASPIRIN EC 81 MG TABLET PO SCH (09:16)
[2017-01-18] MEDS: SPIRONOLACTONE 25 MG TABLET PO SCH (09:16)
[2017-01-18] MEDS: CARVEDILOL 3.125 MG TABLET PO SCH (09:16)
[2017-01-18] MEDS: NEUTRA-PHOS 250 MG TABLET PO SCH ×2 (09:16→13:00)
[2017-01-18] MEDS: POLYETHYLENE GLYCOL 3350 17 GM PACKET PO SCH (09:17)
[2017-01-18] MEDS: ENOXAPARIN 40 MG/0.4 ML SYRINGE SUBQ SCH (09:17)
[2017-01-18] MEDS: MIN OIL/DIMETHICON/COCONUT OIL 92 GM TUBE TOP SCH (09:17)
[2017-01-18 10:09] LABS: BASOPHILS # (AUTO) 0.1 10^3/uL (0.0-0.1); EOSINOPHILS # (AUTO) 0.2 10^3/uL (0.0-0.7); EOSINOPHILS % (AUTO) 2.9 %; HCT - HEMATOCRIT 43.5 % (42.0-52.0); HGB - HEMOGLOBIN 14.2 g/dL (14.0-18.0); LYMPHOCYTES # (AUTO) 1.1 10^3/uL (1.5-3.5); LYMPHOCYTES % (AUTO) 15.2 %; MEAN CORPUSCULAR HEMOGLOBIN 30.1 pg (27.0-31.0); MEAN CORPUSCULAR HGB CONC 32.7 g/dL (32.0-36.0); MEAN CORPUSCULAR VOLUME 91.9 fL (80.0-94.0); MONOCYTES # (AUTO) 0.7 10^3/uL (0.0-1.0); MONOCYTES % (AUTO) 9.4 %; NEUTROPHILS # (AUTO) 5.1 10^3/uL (1.5-6.6); NEUTROPHILS % (AUTO) 71.5 %; NUCLEATED RED BLOOD CELLS AUTO 0.1 /100WBC; RED BLOOD COUNT 4.73 10^6/uL (4.70-6.10); RED CELL DISTRIBUTION WIDTH 13.7 % (12.0-15.0); UNCORRECTED WHITE BLOOD COUNT 7.1 x10^3/uL; WHITE BLOOD COUNT 7.1 x10^3/uL (4.8-10.8)
[2017-01-18 10:35] LABS: ALBUMIN/GLOBULIN RATIO 1.1 (1.0-2.2); BILIRUBIN,TOTAL 0.8 mg/dL (0.2-1.0); BUN - BLOOD UREA NITROGEN 59 mg/dL (6-20); CALCIUM 9.5 mg/dL (8.5-10.3); CARBON DIOXIDE - CO2 33 mmol/L (21-32); CHLORIDE 96 mmol/L (101-111); CREATININE 2.2 mg/dL (0.6-1.2); GFR - MDRD 29 (>89); GLUCOSE 285 mg/dL (70-100); MAGNESIUM 2.3 mg/dL (1.7-2.8); PHOSPHORUS 4.1 mg/dL (2.5-4.6); POTASSIUM 3.5 mmol/L (3.5-5.0); SODIUM 139 mmol/L (135-145)
[2017-01-19] MEDS: ATORVASTATIN 10 MG TABLET PO SCH ×2 (03:35→20:42)
[2017-01-19] MEDS: SODIUM CHLORIDE FLUSH 0.9% 10 ML SYRINGE IVP SCH ×4 (03:35→20:43)
[2017-01-19] MEDS: CARVEDILOL 3.125 MG TABLET PO SCH ×3 (03:35→20:41)
[2017-01-19] MEDS: traZODone 50 MG TABLET PO SCH ×2 (03:35→20:41)
[2017-01-19] MEDS: MIN OIL/DIMETHICON/COCONUT OIL 92 GM TUBE TOP SCH ×3 (03:35→23:46)
[2017-01-19] MEDS: NYSTATIN CREAM 15 GM TUBE TOP SCH ×4 (03:35→23:47)
[2017-01-19] MEDS: NEUTRA-PHOS 250 MG TABLET PO SCH ×4 (03:35→16:49)
[2017-01-19 06:16] LABS: BASOPHILS % (AUTO) 0.6 %; EOSINOPHILS # (AUTO) 0.2 10^3/uL (0.0-0.7); HCT - HEMATOCRIT 42.2 % (42.0-52.0); HGB - HEMOGLOBIN 13.8 g/dL (14.0-18.0); LYMPHOCYTES # (AUTO) 1.4 10^3/uL (1.5-3.5); LYMPHOCYTES % (AUTO) 20.8 %; MEAN CORPUSCULAR HEMOGLOBIN 30.4 pg (27.0-31.0); MEAN CORPUSCULAR HGB CONC 32.8 g/dL (32.0-36.0); MEAN CORPUSCULAR VOLUME 92.8 fL (80.0-94.0); MEAN PLATELET VOLUME 10.3 fL (7.4-11.4); MONOCYTES # (AUTO) 0.6 10^3/uL (0.0-1.0); MONOCYTES % (AUTO) 9.2 %; NEUTROPHILS # (AUTO) 4.4 10^3/uL (1.5-6.6); NEUTROPHILS % (AUTO) 66.4 %; NUCLEATED RED BLOOD CELLS AUTO 0.1 /100WBC; RED BLOOD COUNT 4.55 10^6/uL (4.70-6.10); RED CELL DISTRIBUTION WIDTH 13.8 % (12.0-15.0); UNCORRECTED WHITE BLOOD COUNT 6.6 x10^3/uL; WHITE BLOOD COUNT 6.6 x10^3/uL (4.8-10.8)
[2017-01-19 06:27] LABS: ALBUMIN/GLOBULIN RATIO 1.3 (1.0-2.2); BILIRUBIN,TOTAL 0.7 mg/dL (0.2-1.0); BUN - BLOOD UREA NITROGEN 67 mg/dL (6-20); CALCIUM 9.2 mg/dL (8.5-10.3); CARBON DIOXIDE - CO2 32 mmol/L (21-32); CHLORIDE 97 mmol/L (101-111); CREATININE 2.8 mg/dL (0.6-1.2); GFR - MDRD 22 (>89); GLUCOSE 177 mg/dL (70-100); MAGNESIUM 2.7 mg/dL (1.7-2.8); PHOSPHORUS 7.3 mg/dL (2.5-4.6); POTASSIUM 3.5 mmol/L (3.5-5.0); SODIUM 141 mmol/L (135-145); TOTAL PROTEIN 6.2 g/dL (6.7-8.2)
[2017-01-19] MEDS: LISINOPRIL 5 MG TABLET PO SCH (09:08)
[2017-01-19] MEDS: ENOXAPARIN 40 MG/0.4 ML SYRINGE SUBQ SCH (09:08)
[2017-01-19] MEDS: MULTIVITAMIN TABLET PO SCH (09:08)
[2017-01-19] MEDS: FINASTERIDE 5 MG TABLET PO SCH (09:08)
[2017-01-19] MEDS: TAMSULOSIN 0.4 MG CAPSULE PO SCH (09:08)
[2017-01-19] MEDS: SPIRONOLACTONE 25 MG TABLET PO SCH (09:08)
[2017-01-19] MEDS: ASPIRIN EC 81 MG TABLET PO SCH (09:08)
[2017-01-19] MEDS: POLYETHYLENE GLYCOL 3350 17 GM PACKET PO SCH (09:11)
--- NOTE | 2017-01-19 14:04 | PROVIDER PROGRESS NOTE ---
Assessment/Plan - Problem List (1) Acute systolic (congestive) heart failure Assessment/Plan: Down 14 KG since admission. Was at 122.5 and now 108.6 KG today Negative 11L in fluid since admission The zaroxyln was stopped 01/12 secondary to renal insufficiency Because his CO2 is up to 38, started diamox 01/13 stopped 01-17-17 After many discussions with the family as patient is showing significant improvement the family and the patient would like to try to go home with hospice or transition to an [facility] or adult family home where he can get enough assistance He also signed a POLST 01/13. DNR Patient able to stand and get up and into chair with minimal assistance with much less shortness of breath Patient continues to improve and so we will continue IV lasix for at least one more day as his renal function is still stable Patient on optimal CHF treatment with coreg, lisinopril and aldactone Plan: Patients insurance denied SNF and recommended hospice for the patient Patient is however improving and would like to try to go to rehab if patient can afford it will try to get him to rehab in next 1-2 days but if he cannot afford it patient will likely have to go hospice at home or adult family home. I would recommend hospice with continued care for CHF to optimize quality of life. Patient would qualify for hospice as with his EF of 15% and decompensation his prognosis is less than 6 months (2) Acute and chronic respiratory failure with hypoxia Impression: from his CHF. needed O2 2 liters even at rest. has been as high as 5 liters and oxymask. continue prn . Patient has been diuresed more than 11L and has had decreased O2 requirement Still needs O2 at rest (3) CAD (coronary artery disease), [place] coronary artery Impression: he had an elevated troponin on admit peaked at 0.54 does not appear to have been an [place] likely secondary to CHF Qualifiers: [place] vs. transplanted heart: [place] heart Associated angina: without angina Qualified Code(s): I25.10 - Atherosclerotic heart disease of [place] coronary artery without angina pectoris (4) Type 2 diabetes mellitus with complication, without long-term current use of insulin Impression: was on glimeperide as outpt. A1c is 7.6%. Here out goal is to be <200. not aiming for strict control in view of end stage CHF. is eating 75% to 100% of food. Blood glucose stable - Current Meds Current Meds: Current Medications Generic Name Dose Route Start Last Admin Trade Name Freq PRN Reason Stop Dose Admin Aspirin 81 mg 01/12/17 13:00 01/19/17 09:08 Ecotrin PO 81 mg DAILY RAJIV Administration Atorvastatin Calcium 20 mg 01/12/17 21:00 01/19/17 03:35 Lipitor PO Not Given QPM RAJIV Carvedilol 6.25 mg 01/19/17 08:00 01/19/17 09:08 Coreg PO 6.25 mg BID RAJIV Administration Enoxaparin Sodium 40 mg 01/11/17 09:00 01/19/17 09:08 Lovenox SUBQ 40 mg DAILY RAJIV Administration Finasteride 5 mg 01/12/17 13:00 01/19/17 09:08 Proscar PO 5 mg DAILY RAJIV Administration Lisinopril 5 mg 01/13/17 09:00 01/19/17 09:08 Zestril PO 5 mg DAILY RAJIV Administration Mineral Oil 1 applic 01/10/17 21:00 01/19/17 09:11 Cavilon TOP 1 applic BID RAJIV Administration Multivitamins 1 tab 01/12/17 13:00 01/19/17 09:08 Theragran PO 1 tab DAILY RAJIV Administration Nystatin 1 applic 01/11/17 15:00 01/19/17 06:11 Mycostatin Cream TOP 1 applic TID RAJIV Administration Polyethylene Glycol 17 gm 01/11/17 09:00 01/19/17 09:11 Miralax PO Not Given DAILY RAJIV Sodium Chloride 10 ml 01/10/17 14:30 01/12/17 09:12 Normal Saline Flush 0.9% IVP 10 ml PRN PRN Administration NEEDED PER PROVIDER ORDERS Sodium Chloride 10 ml 01/10/17 22:00 01/19/17 06:11 Normal Saline Flush 0.9% IVP 10 ml Q8HR RAJIV Administration Sodium Phosphate 250 mg 01/17/17 18:30 01/19/17 13:17 K-Phos Neutral PO Not Given TIDWM RAJIV Spironolactone 25 mg 01/16/17 12:00 01/19/17 09:08 Aldactone PO 25 mg DAILY RAJIV Administration Tamsulosin HCl 0.4 mg 01/12/17 13:00 01/19/17 09:08 Flomax PO 0.4 mg DAILY RAJIV Administration Trazodone HCl 50 mg 01/17/17 01:00 01/19/17 03:35 Desyrel PO Not Given HS RAJIV - Lab Result Lab results reviewed: Yes Fish Bone Diagrams: 01/19/17 05:04 01/19/17 05:04 - EKG Results EKG Interpreted Independently: Yes - Diagnostic Imaging Results Diagnostic Imaging Results: positive: Final report reviewed - Additional Planning Condition/Complexity: Guarded My Orders: My Active Orders 01/19/17 08:00 Carvedilol [Coreg] 6.25 mg PO BID 01/20/17 05:00 BNP - B-NATRIURETIC PEPTIDE [IAI] DAILYLAB CBC - COMP BLD CT W/AUTO DIFF [HEME] DAILYLAB CMP, RFLX TO IONIZED CA IF [CHEM] DAILYLAB MAGNESIUM [CHEM] DAILYLAB PHOSPHORUS [CHEM] DAILYLAB 01/21/17 05:00 BNP - B-NATRIURETIC PEPTIDE [IAI] DAILYLAB CBC - COMP BLD CT W/AUTO DIFF [HEME] DAILYLAB CMP, RFLX TO IONIZED CA IF [CHEM] DAILYLAB MAGNESIUM [CHEM] DAILYLAB PHOSPHORUS [CHEM] DAILYLAB 01/22/17 05:00 BNP - B-NATRIURETIC PEPTIDE [IAI] DAILYLAB CBC - COMP BLD CT W/AUTO DIFF [HEME] DAILYLAB CMP, RFLX TO IONIZED [place] IF [CHEM] DAILYLAB MAGNESIUM [CHEM] DAILYLAB PHOSPHORUS [CHEM] DAILYLAB Plan Discussed with:: Patient, Family, Case Management Time Spent: 31-60 minutes Subjective - Subjective Patient Reports: Feeling Better (Patient states he feels better. Still short of breath with minimal exertion but he feels better at rest and has been getting up to chair and back with minimal difficulties breathing.) Nursing Reports: Shortness of Breath Objective Vital Signs: Vital Signs - 24 hr 01/19/17 01/19/17 00:00 11:37 Temperature 37 C 36.5 C Heart Rate [ 87 59 L Brachial] Respiratory 24 16 Rate Blood Pressure 101/62 85/46 L [Left Brachial artery] O2 Saturation 96 98 Oxygen O2 Source [With Activity] Oxymask O2 Source [Without Activity] 96% on 3L O2 Source Nasal cannula I&O (Last 24 Hrs): Intake and Output Totals x24h 01/17/17 01/18/17 01/19/17 23:59 23:59 23:59 Intake Total 691 630 450 Output Total 900 500 225 Balance -209 130 225 General: Alert, Oriented x3, Cooperative HEENT: Atraumatic, PERRLA, EOMI, Mucous membr. moist/pink Neck: Supple, No thyromegaly, +2 carotid pulse wo bruit, Other (JVD improved) Lymphatic: no adenopathy Neuro: Alert, Non Focal, CN 2-12 Grossly Intact, Oriented Times 3 Cardiovascular: Regular rate, Normal S1, Normal S2, No murmurs Respiratory: Chest non-tender, Rales (bases bilaterally) Abdomen: Normal bowel sounds, Soft, No tenderness, Other (distended) Extremities: No clubbing, No cyanosis, Normal pulses, Other (Bilateral LE edema improved) Skin: No rashes, No breakdown, No significant lesion - Results Results: Laboratory Results WBC 6.6 x10^3/uL (4.8-10.8) 01/19/17 05:04 RBC 4.55 10^6/uL (4.70-6.10) L 01/19/17 05:04 Hgb 13.8 g/dL (14.0-18.0) L 01/19/17 05:04 Hct 42.2 % (42.0-52.0) 01/19/17 05:04 MCV 92.8 fL (80.0-94.0) 01/19/17 05:04 MCH 30.4 pg (27.0-31.0) 01/19/17 05:04 MCHC 32.8 g/dL (32.0-36.0) 01/19/17 05:04 RDW 13.8 % (12.0-15.0) 01/19/17 05:04 Plt Count 146 10^3/uL (130-450) 01/19/17 05:04 MPV 10.3 fL (7.4-11.4) 01/19/17 05:04 Neut # 4.4 10^3/uL (1.5-6.6) 01/19/17 05:04 Lymph # 1.4 10^3/uL (1.5-3.5) L 01/19/17 05:04 [place] # 0.6 10^3/uL (0.0-1.0) 01/19/17 05:04 Eos # 0.2 10^3/uL (0.0-0.7) 01/19/17 05:04 Baso # 0.0 10^3/uL (0.0-0.1) 01/19/17 05:04 Absolute Nucleated RBC 0.01 x10^3/uL 01/19/17 05:04 Nucleated RBCs 0.1 /100WBC 01/19/17 05:04 Sodium 141 mmol/L (135-145) 01/19/17 05:04 Potassium 3.5 mmol/L (3.5-5.0) 01/19/17 05:04 Chloride 97 mmol/L (101-111) L 01/19/17 05:04 Carbon Dioxide 32 mmol/L (21-32) 01/19/17 05:04 Anion Gap 12.0 (6-13) 01/19/17 05:04 BUN 67 mg/dL (6-20) H 01/19/17 05:04 Creatinine 2.8 mg/dL (0.6-1.2) H 01/19/17 05:04 Estimated GFR (MDRD) 22 (>89) L 01/19/17 05:04 Glucose 177 mg/dL (70-100) H 01/19/17 05:04 POC Whole Bld Glucose 159 mg/dL (70 - 100) H 01/17/17 08:02 Glycated Hemoglobin 7.6 % (4.6-6.2) H 01/13/17 05:30 Estim Average Glucose 171 (70-100) H 01/13/17 05:30 Lactic Acid 1.3 mmol/L (0.5-2.2) 01/10/17 12:35 Calcium 9.2 mg/dL (8.5-10.3) 01/19/17 05:04 Ionized Calcium NO 01/19/17 05:04 Phosphorus 7.3 mg/dL (2.5-4.6) H 01/19/17 05:04 Magnesium 2.7 mg/dL (1.7-2.8) 01/19/17 05:04 Total Bilirubin 0.7 mg/dL (0.2-1.0) 01/19/17 05:04 AST 30 IU/L (10-42) 01/19/17 05:04 ALT 36 IU/L (10-60) 01/19/17 05:04 Alkaline Phosphatase 51 IU/L (42-121) 01/19/17 05:04 Troponin I 0.39 ng/mL (<0.49) 01/14/17 14:40 B-Natriuretic Peptide 648 pg/mL (5-100) H 01/19/17 05:04 Total Protein 6.2 g/dL (6.7-8.2) L 01/19/17 05:04 Albumin 3.5 g/dL (3.2-5.5) 01/19/17 05:04 Globulin 2.7 g/dL (2.1-4.2) 01/19/17 05:04 Albumin/Globulin Ratio 1.3 (1.0-2.2) 01/19/17 05:04 Lipase 36 U/L (22-51) 01/10/17 12:15 Urine Color YELLOW 01/10/17 20:10 Urine Clarity SL. CLOUDY (CLEAR) 01/10/17 20:10 Urine pH 5.5 PH (5.0-7.5) 01/10/17 20:10 Ur Specific [place] 1.015 (1.002-1.030) 01/10/17 20:10 Urine Protein NEGATIVE mg/dL (NEGATIVE) 01/10/17 20:10 Urine Glucose (UA) NEGATIVE mg/dL (NEGATIVE) 01/10/17 20:10 Urine Ketones NEGATIVE mg/dL (NEGATIVE) 01/10/17 20:10 Urine Occult Blood LARGE (NEGATIVE) H 01/10/17 20:10 Urine Nitrite NEGATIVE (NEGATIVE) 01/10/17 20:10 Urine Bilirubin NEGATIVE (NEGATIVE) 01/10/17 20:10 Urine Urobilinogen 0.2 (NORMAL) E.U./dL (NORMAL) 01/10/17 20:10 Ur Leukocyte Esterase MODERATE (NEGATIVE) H 01/10/17 20:10 Urine RBC TNTC /HPF (0-5) H 01/10/17 20:10 Urine WBC >25 /HPF (0-3) H 01/10/17 20:10 Ur Squamous Epith Cells RARE Squamous (<= Few) 01/10/17 20:10 Urine Bacteria Few /HPF (None Seen) 01/10/17 20:10 Ur Microscopic Review INDICATED 01/10/17 20:10 Urine Culture Comments INDICATED 06/08/17 20:10 - Procedures Procedures: Procedures CATARAC PHACOEMULS/ASPIR (12/01/14) INSERT LENS AT CATAR EXT (12/01/14)
--- NOTE | 2017-01-19 14:15 | PROVIDER PROGRESS NOTE ---
Assessment/Plan - Problem List (1) Acute systolic (congestive) heart failure Assessment/Plan: Down 14 KG since admission. Was at 122.5 and now 108.6 KG yesterday not taken today Negative 11L in fluid since admission The zaroxyln was stopped 01/12 secondary to renal insufficiency Because his CO2 is up to 38, started diamox 01/13 stopped 01-17-17 After many discussions with the family as patient is showing significant improvement the family and the patient would like to try to go home with hospice or transition to an [facility] or adult family home where he can get enough assistance He also signed a POLST 01/13. 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 I would recommend hospice with continued care for CHF to optimize quality of life. Patient would qualify for hospice as with his EF of 15% and decompensation his prognosis is less than 6 months Will need to watch kidney function before discharge and restarting lasix PO Improving (2) Acute and chronic respiratory failure with hypoxia Impression: from his CHF. needed O2 2 liters even at rest. has been as high as 5 liters and oxymask. continue prn . Patient has been diuresed more than 11L and has had decreased O2 requirement Still needs O2 at rest (3) CAD (coronary artery disease), [place] coronary artery Impression: he had an elevated troponin on admit peaked at 0.54 does not appear to have been an [place] likely secondary to CHF Qualifiers: [place] vs. transplanted heart: [place] heart Associated angina: without angina Qualified Code(s): I25.10 - Atherosclerotic heart disease of [place] coronary artery without angina pectoris (4) Type 2 diabetes mellitus with complication, without long-term current use of insulin Impression: was on glimeperide as outpt. A1c is 7.6%. Here out goal is to be <200. not aiming for strict control in view of end stage CHF. is eating 75% to 100% of food. Blood glucose stable (5) Acute Kidney Injury Impression: Medical Coding Auditor increased to 2.2 from 1.7 today with decreased urine output LIk[place] secondary to overdiuresis Will stop lasix Monitor [employer] principal - Current Meds Current Meds: Current Medications Generic Name Dose Route Start Last Admin Trade Name Freq PRN Reason Stop Dose Admin Aspirin 81 mg 01/12/17 13:00 01/19/17 09:08 Ecotrin PO 81 mg DAILY RAJIV Administration Atorvastatin Calcium 20 mg 01/12/17 21:00 01/19/17 03:35 Lipitor PO Not Given QPM RAJIV Carvedilol 6.25 mg 01/19/17 08:00 01/19/17 09:08 Coreg PO 6.25 mg BID RAJIV Administration Enoxaparin Sodium 40 mg 01/11/17 09:00 01/19/17 09:08 Lovenox SUBQ 40 mg DAILY RAJIV Administration Finasteride 5 mg 01/12/17 13:00 01/19/17 09:08 Proscar PO 5 mg DAILY RAJIV Administration Lisinopril 5 mg 01/13/17 09:00 01/19/17 09:08 Zestril PO 5 mg DAILY RAJIV Administration Mineral Oil 1 applic 01/10/17 21:00 01/19/17 09:11 Cavilon TOP 1 applic BID RAJIV Administration Multivitamins 1 tab 01/12/17 13:00 01/19/17 09:08 Theragran PO 1 tab DAILY RAJIV Administration Nystatin 1 applic 01/11/17 15:00 01/19/17 06:11 Mycostatin Cream TOP 1 applic TID RAJIV Administration Polyethylene Glycol 17 gm 01/11/17 09:00 01/19/17 09:11 Miralax PO Not Given DAILY RAJIV Sodium Chloride 10 ml 01/10/17 14:30 01/12/17 09:12 Normal Saline Flush 0.9% IVP 10 ml PRN PRN Administration NEEDED PER PROVIDER ORDERS Sodium Chloride 10 ml 01/10/17 22:00 01/19/17 06:11 Normal Saline Flush 0.9% IVP 10 ml Q8HR RAJIV Administration Sodium Phosphate 250 mg 01/17/17 18:30 01/19/17 13:17 K-Phos Neutral PO Not Given TIDWM RAJIV Spironolactone 25 mg 01/16/17 12:00 01/19/17 09:08 Aldactone PO 25 mg DAILY RAJIV Administration Tamsulosin HCl 0.4 mg 01/12/17 13:00 01/19/17 09:08 Flomax PO 0.4 mg DAILY RAJIV Administration Trazodone HCl 50 mg 01/17/17 01:00 01/19/17 03:35 Desyrel PO Not Given HS RAJIV - Lab Result Lab results reviewed: Yes Fish Bone Diagrams: 01/19/17 05:04 01/19/17 05:04 - EKG Results EKG Interpreted Independently: Yes - Diagnostic Imaging Results Diagnostic Imaging Results: positive: Final report reviewed - Additional Planning My Orders: My Active Orders 01/19/17 08:00 Carvedilol [Coreg] 6.25 mg PO BID 01/20/17 05:00 BNP - B-NATRIURETIC PEPTIDE [IAI] DAILYLAB CBC - COMP BLD CT W/AUTO DIFF [HEME] DAILYLAB CMP, RFLX TO IONIZED [place] IF [CHEM] DAILYLAB MAGNESIUM [CHEM] DAILYLAB PHOSPHORUS [CHEM] DAILYLAB 01/21/17 05:00 BNP - B-NATRIURETIC PEPTIDE [IAI] DAILYLAB CBC - COMP BLD CT W/AUTO DIFF [HEME] DAILYLAB CMP, RFLX TO IONIZED [place] IF [CHEM] DAILYLAB MAGNESIUM [CHEM] DAILYLAB PHOSPHORUS [CHEM] DAILYLAB 01/22/17 05:00 BNP - B-NATRIURETIC PEPTIDE [IAI] DAILYLAB CBC - COMP BLD CT W/AUTO DIFF [HEME] DAILYLAB CMP, RFLX TO IONIZED [place] IF [CHEM] DAILYLAB MAGNESIUM [CHEM] DAILYLAB PHOSPHORUS [CHEM] DAILYLAB Plan Discussed with:: Patient, Family Time Spent: 31-60 minutes Subjective - Subjective Patient Reports: Feeling Better (He states today is the best he has felt in a long time. Patient still sleepy but wakes up easily and sitting in the chair. Denies any fevers or chest pain. He does have some hematuria in the [place] today. ) Nursing Reports: No Complaints Objective Vital Signs: Vital Signs - 24 hr 01/19/17 01/19/17 00:00 11:37 Temperature 37 C 36.5 C Heart Rate [ 87 59 L Brachial] Respiratory 24 16 Rate Blood Pressure 101/62 85/46 L [Left Brachial artery] O2 Saturation 96 98 Oxygen O2 Source [With Activity] Oxymask O2 Source [Without Activity] 96% on 3L O2 Source Nasal cannula I&O (Last 24 Hrs): Intake and Output Totals x24h 01/17/17 01/18/17 01/19/17 23:59 23:59 23:59 Intake Total 691 630 650 Output Total 900 500 225 Balance -209 130 425 General: Alert, Oriented x3, Cooperative, No acute distress HEENT: Atraumatic, PERRLA, EOMI, Mucous membr. moist/pink Neck: Supple, No thyromegaly, +2 carotid pulse wo bruit, No LAD, Other (JVD improved) Lymphatic: no adenopathy Neuro: Alert, Non Focal, CN 2-12 Grossly Intact, Oriented Times 3 Cardiovascular: Regular rate, Normal S1, Normal S2, No murmurs Respiratory: Chest non-tender, No respiratory distress, Rales (improved) Abdomen: Normal bowel sounds, Soft, No tenderness, No hepatospenomegaly, Other ( distended) Extremities: No clubbing, No cyanosis, Normal pulses, Other (edema improved) Skin: No rashes, No breakdown - Results Results: Laboratory Results WBC 6.6 x10^3/uL (4.8-10.8) 01/19/17 05:04 RBC 4.55 10^6/uL (4.70-6.10) L 01/19/17 05:04 Hgb 13.8 g/dL (14.0-18.0) L 01/19/17 05:04 Hct 42.2 % (42.0-52.0) 01/19/17 05:04 MCV 92.8 fL (80.0-94.0) 01/19/17 05:04 MCH 30.4 pg (27.0-31.0) 01/19/17 05:04 MCHC 32.8 g/dL (32.0-36.0) 01/19/17 05:04 RDW 13.8 % (12.0-15.0) 01/19/17 05:04 Plt Count 146 10^3/uL (130-450) 01/19/17 05:04 MPV 10.3 fL (7.4-11.4) 01/19/17 05:04 Neut # 4.4 10^3/uL (1.5-6.6) 01/19/17 05:04 Lymph # 1.4 10^3/uL (1.5-3.5) L 01/19/17 05:04 [place] # 0.6 10^3/uL (0.0-1.0) 01/19/17 05:04 Eos # 0.2 10^3/uL (0.0-0.7) 01/19/17 05:04 Baso # 0.0 10^3/uL (0.0-0.1) 01/19/17 05:04 Absolute Nucleated RBC 0.01 x10^3/uL 01/19/17 05:04 Nucleated RBCs 0.1 /100WBC 01/19/17 05:04 Sodium 141 mmol/L (135-145) 01/19/17 05:04 Potassium 3.5 mmol/L (3.5-5.0) 01/19/17 05:04 Chloride 97 mmol/L (101-111) L 01/19/17 05:04 Carbon Dioxide 32 mmol/L (21-32) 01/19/17 05:04 Anion Gap 12.0 (6-13) 01/19/17 05:04 BUN 67 mg/dL (6-20) H 01/19/17 05:04 Creatinine 2.8 mg/dL (0.6-1.2) H 01/19/17 05:04 Estimated GFR (MDRD) 22 (>89) L 01/19/17 05:04 Glucose 177 mg/dL (70-100) H 01/19/17 05:04 POC Whole Bld Glucose 159 mg/dL (70 - 100) H 01/17/17 08:02 Glycated Hemoglobin 7.6 % (4.6-6.2) H 01/13/17 05:30 Estim Average Glucose 171 (70-100) H 01/13/17 05:30 Lactic Acid 1.3 mmol/L (0.5-2.2) 01/10/17 12:35 Calcium 9.2 mg/dL (8.5-10.3) 01/19/17 05:04 Ionized Calcium NO 01/19/17 05:04 Phosphorus 7.3 mg/dL (2.5-4.6) H 01/19/17 05:04 Magnesium 2.7 mg/dL (1.7-2.8) 01/19/17 05:04 Total Bilirubin 0.7 mg/dL (0.2-1.0) 01/19/17 05:04 AST 30 IU/L (10-42) 01/19/17 05:04 ALT 36 IU/L (10-60) 01/19/17 05:04 Alkaline Phosphatase 51 IU/L (42-121) 01/19/17 05:04 Troponin I 0.39 ng/mL (<0.49) 01/14/17 14:40 B-Natriuretic Peptide 648 pg/mL (5-100) H 01/19/17 05:04 Total Protein 6.2 g/dL (6.7-8.2) L 01/19/17 05:04 Albumin 3.5 g/dL (3.2-5.5) 01/19/17 05:04 Globulin 2.7 g/dL (2.1-4.2) 01/19/17 05:04 Albumin/Globulin Ratio 1.3 (1.0-2.2) 01/19/17 05:04 Lipase 36 U/L (22-51) 01/10/17 12:15 Urine Color YELLOW 01/10/17 20:10 Urine Clarity SL. CLOUDY (CLEAR) 01/10/17 20:10 Urine pH 5.5 PH (5.0-7.5) 01/10/17 20:10 Ur Specific [place] 1.015 (1.002-1.030) 01/10/17 20:10 Urine Protein NEGATIVE mg/dL (NEGATIVE) 01/10/17 20:10 Urine Glucose (UA) NEGATIVE mg/dL (NEGATIVE) 01/10/17 20:10 Urine Ketones NEGATIVE mg/dL (NEGATIVE) 01/10/17 20:10 Urine Occult Blood LARGE (NEGATIVE) H 01/10/17 20:10 Urine Nitrite NEGATIVE (NEGATIVE) 01/10/17 20:10 Urine Bilirubin NEGATIVE (NEGATIVE) 01/10/17 20:10 Urine Urobilinogen 0.2 (NORMAL) E.U./dL (NORMAL) 01/10/17 20:10 Ur Leukocyte Esterase MODERATE (NEGATIVE) H 01/10/17 20:10 Urine RBC TNTC /HPF (0-5) H 01/10/17 20:10 Urine WBC >25 /HPF (0-3) H 01/10/17 20:10 Ur Squamous Epith Cells RARE Squamous (<= Few) 01/10/17 20:10 Urine Bacteria Few /HPF (None Seen) 01/10/17 20:10 Ur Microscopic Review INDICATED 01/10/17 20:10 Urine Culture Comments INDICATED 01/10/17 20:10 - Procedures Procedures: Procedures CATARAC PHACOEMULS/ASPIR (12/01/14) INSERT LENS AT CATAR EXT (12/01/14)
[2017-01-20] MEDS: NYSTATIN CREAM 15 GM TUBE TOP SCH ×3 (06:26→20:32)
[2017-01-20] MEDS: SODIUM CHLORIDE FLUSH 0.9% 10 ML SYRINGE IVP SCH ×3 (06:27→20:30)
[2017-01-20 06:50] LABS: BASOPHILS # (AUTO) 0.1 10^3/uL (0.0-0.1); BASOPHILS % (AUTO) 0.9 %; EOSINOPHILS # (AUTO) 0.2 10^3/uL (0.0-0.7); EOSINOPHILS % (AUTO) 3.5 %; HCT - HEMATOCRIT 42.1 % (42.0-52.0); HGB - HEMOGLOBIN 13.7 g/dL (14.0-18.0); LYMPHOCYTES # (AUTO) 1.5 10^3/uL (1.5-3.5); LYMPHOCYTES % (AUTO) 21.3 %; MEAN CORPUSCULAR HEMOGLOBIN 30.3 pg (27.0-31.0); MEAN CORPUSCULAR HGB CONC 32.6 g/dL (32.0-36.0); MEAN CORPUSCULAR VOLUME 92.9 fL (80.0-94.0); MEAN PLATELET VOLUME 10.1 fL (7.4-11.4); MONOCYTES # (AUTO) 0.6 10^3/uL (0.0-1.0); MONOCYTES % (AUTO) 8.9 %; NEUTROPHILS # (AUTO) 4.6 10^3/uL (1.5-6.6); NEUTROPHILS % (AUTO) 65.4 %; NUCLEATED RED BLOOD CELLS AUTO 0.1 /100WBC; RED BLOOD COUNT 4.53 10^6/uL (4.70-6.10); RED CELL DISTRIBUTION WIDTH 13.8 % (12.0-15.0)
[2017-01-20 07:01] LABS: ALBUMIN/GLOBULIN RATIO 1.1 (1.0-2.2); BILIRUBIN,TOTAL 0.6 mg/dL (0.2-1.0); BUN - BLOOD UREA NITROGEN 73 mg/dL (6-20); CALCIUM 9.3 mg/dL (8.5-10.3); CARBON DIOXIDE - CO2 32 mmol/L (21-32); CHLORIDE 97 mmol/L (101-111); CREATININE 2.9 mg/dL (0.6-1.2); GFR - MDRD 21 (>89); GLUCOSE 179 mg/dL (70-100); MAGNESIUM 2.5 mg/dL (1.7-2.8); PHOSPHORUS 5.1 mg/dL (2.5-4.6); POTASSIUM 3.6 mmol/L (3.5-5.0); SODIUM 140 mmol/L (135-145); TOTAL PROTEIN 6.4 g/dL (6.7-8.2)
[2017-01-20] MEDS: NEUTRA-PHOS 250 MG TABLET PO SCH ×2 (08:31→14:24)
[2017-01-20] MEDS: ENOXAPARIN 40 MG/0.4 ML SYRINGE SUBQ SCH (08:42)
[2017-01-20] MEDS: FINASTERIDE 5 MG TABLET PO SCH (08:43)
[2017-01-20] MEDS: SPIRONOLACTONE 25 MG TABLET PO SCH (08:43)
[2017-01-20] MEDS: TAMSULOSIN 0.4 MG CAPSULE PO SCH (08:43)
[2017-01-20] MEDS: ASPIRIN EC 81 MG TABLET PO SCH (08:43)
[2017-01-20] MEDS: MIN OIL/DIMETHICON/COCONUT OIL 92 GM TUBE TOP SCH ×2 (08:43→20:31)
[2017-01-20] MEDS: LISINOPRIL 5 MG TABLET PO SCH (08:43)
[2017-01-20] MEDS: CARVEDILOL 3.125 MG TABLET PO SCH ×2 (08:43→20:28)
[2017-01-20] MEDS: MULTIVITAMIN TABLET PO SCH (08:43)
[2017-01-20] MEDS: POLYETHYLENE GLYCOL 3350 17 GM PACKET PO SCH (08:44)
[2017-01-20] MEDS: ATORVASTATIN 10 MG TABLET PO SCH (20:28)
[2017-01-20] MEDS: traZODone 50 MG TABLET PO SCH (20:30)
[2017-01-21] MEDS: SODIUM CHLORIDE FLUSH 0.9% 10 ML SYRINGE IVP SCH ×3 (05:13→21:35)
[2017-01-21] MEDS: NYSTATIN CREAM 15 GM TUBE TOP SCH ×3 (05:18→22:57)
[2017-01-21 05:46] LABS: BASOPHILS # (AUTO) 0.1 10^3/uL (0.0-0.1); BASOPHILS % (AUTO) 0.9 %; EOSINOPHILS # (AUTO) 0.2 10^3/uL (0.0-0.7); EOSINOPHILS % (AUTO) 2.9 %; HCT - HEMATOCRIT 41.8 % (42.0-52.0); HGB - HEMOGLOBIN 13.9 g/dL (14.0-18.0); LYMPHOCYTES # (AUTO) 1.5 10^3/uL (1.5-3.5); LYMPHOCYTES % (AUTO) 24.6 %; MEAN CORPUSCULAR HEMOGLOBIN 30.4 pg (27.0-31.0); MEAN CORPUSCULAR HGB CONC 33.1 g/dL (32.0-36.0); MEAN CORPUSCULAR VOLUME 91.8 fL (80.0-94.0); MEAN PLATELET VOLUME 10.4 fL (7.4-11.4); MONOCYTES # (AUTO) 0.6 10^3/uL (0.0-1.0); MONOCYTES % (AUTO) 8.8 %; NEUTROPHILS # (AUTO) 3.9 10^3/uL (1.5-6.6); NEUTROPHILS % (AUTO) 62.8 %; NUCLEATED RED BLOOD CELLS AUTO 0.1 /100WBC; RED BLOOD COUNT 4.56 10^6/uL (4.70-6.10); RED CELL DISTRIBUTION WIDTH 13.9 % (12.0-15.0); UNCORRECTED WHITE BLOOD COUNT 6.3 x10^3/uL; WHITE BLOOD COUNT 6.3 x10^3/uL (4.8-10.8)
[2017-01-21 05:56] LABS: ALBUMIN/GLOBULIN RATIO 1.1 (1.0-2.2); BILIRUBIN,TOTAL 0.7 mg/dL (0.2-1.0); BUN - BLOOD UREA NITROGEN 68 mg/dL (6-20); CALCIUM 9.5 mg/dL (8.5-10.3); CARBON DIOXIDE - CO2 34 mmol/L (21-32); CHLORIDE 97 mmol/L (101-111); CREATININE 2.4 mg/dL (0.6-1.2); GFR - MDRD 26 (>89); GLUCOSE 173 mg/dL (70-100); MAGNESIUM 2.6 mg/dL (1.7-2.8); PHOSPHORUS 3.9 mg/dL (2.5-4.6); POTASSIUM 3.5 mmol/L (3.5-5.0); SODIUM 140 mmol/L (135-145); TOTAL PROTEIN 6.7 g/dL (6.7-8.2)
--- NOTE | 2017-01-21 07:42 | PROVIDER PROGRESS NOTE ---
Assessment/Plan - Problem List (1) Acute systolic (congestive) heart failure Assessment/Plan: Lost 14kg of weight since admission. Was at 122.5 and now 108.6 KG. Negative 11L in fluid since admission The zaroxyln was stopped 01/12 secondary to renal insufficiency Because his CO2 is up to 38, started diamox 01/13 stopped 01-17-17 After many discussions with the family as patient is showing significant improvement the family and the patient would like to try to go home with hospice or transition to an [facility] or adult family home where he can get enough assistance He also signed a POLST 01/13. DNR Patient continues to have improvement in regards to his breathing and endurance but today his risk intern is worsening and so lasix will be stopped Patient on optimal CHF treatment with coreg, lisinopril and aldactone Plan: Patients insurance denied SNF and recommended hospice for the patient Patient is however improving and would like to try to go to rehab if patient can afford it will try to get him to rehab in next 1-2 days but if he cannot afford it patient will likely have to go hospice at home or adult family home. I would recommend hospice with continued care for CHF to optimize quality of life. Patient would qualify for hospice as with his EF of 15% and patient with class 4 symptoms at rest his prognosis is less than 6 months Creatnine worsening secondary to overdiuresis stopped lasix and will continue to monitor risk intern before discharge and restart lasix PO at discharge if risk intern better Stable with worsening risk intern (2) Acute and chronic respiratory failure with hypoxia Impression: from his CHF. needed O2 2 liters even at rest. has been as high as 5 liters and oxymask. continue prn . Patient has been diuresed more than 11L and has had decreased O2 requirement O2 sats greater than 92% on RA at rest but with exertion he requires 3L of O2 will need home O2 (3) CAD (coronary artery disease), [place] coronary artery Impression: he had an elevated troponin on admit peaked at 0.54 does not appear to have been an [place] likely secondary to CHF Qualifiers: [place] vs. transplanted heart: [place] heart Associated angina: without angina Qualified Code(s): I25.10 - Atherosclerotic heart disease of [place] coronary artery without angina pectoris (4) Type 2 diabetes mellitus with complication, without long-term current use of insulin Impression: was on glimeperide as outpt. A1c is 7.6%. Here out goal is to be <200. not aiming for strict control in view of end stage CHF. Continues to eat 75% to 100 % of food. Blood glucose stable (5) Acute Kidney Injury Impression: Diabetes Educator increased to 2.8 today with decreased urine output LIkely secondary to overdiuresis Holding lasix Monitor risk intern Family has decided on Adult Family Home but they cannot take the patient till Saturday. Patient will transfer via private vehicle. - Current Meds Current Meds: Current Medications Generic Name Dose Route Start Last Admin Trade Name Freq PRN Reason Stop Dose Admin Acetaminophen 650 mg 01/10/17 14:30 01/19/17 14:30 Tylenol PO 650 mg Q4HR PRN Administration Pain 1 to 4 Aspirin 81 mg 01/12/17 13:00 01/20/17 08:43 Ecotrin PO 81 mg DAILY RAJIV Administration Atorvastatin Calcium 20 mg 01/12/17 21:00 01/20/17 20:28 Lipitor PO 20 mg QPM RAJIV Administration Carvedilol 6.25 mg 01/19/17 08:00 01/20/17 20:28 Coreg PO 6.25 mg BID RAJIV Administration Enoxaparin Sodium 40 mg 01/11/17 09:00 01/20/17 08:42 Lovenox SUBQ 40 mg DAILY RAJIV Administration Finasteride 5 mg 01/12/17 13:00 01/20/17 08:43 Proscar PO 5 mg DAILY RAJIV Administration Lisinopril 5 mg 01/13/17 09:00 01/20/17 08:43 Zestril PO 5 mg DAILY RAJIV Administration Mineral Oil 1 applic 01/10/17 21:00 01/20/17 20:31 Cavilon TOP 1 applic BID RAJIV Administration Multivitamins 1 tab 01/12/17 13:00 01/20/17 08:43 Theragran PO 1 tab DAILY RAJIV Administration Nystatin 1 applic 01/11/17 15:00 01/21/17 05:18 Mycostatin Cream TOP 1 applic TID RAJIV Administration Polyethylene Glycol 17 gm 01/11/17 09:00 01/20/17 08:44 Miralax PO Not Given DAILY RAJIV Sodium Chloride 10 ml 01/10/17 14:30 01/12/17 09:12 Normal Saline Flush 0.9% IVP 10 ml PRN PRN Administration NEEDED PER PROVIDER ORDERS Sodium Chloride 10 ml 01/10/17 22:00 01/21/17 05:13 Normal Saline Flush 0.9% IVP 10 ml Q8HR RAJIV Administration Spironolactone 25 mg 01/16/17 12:00 01/20/17 08:43 Aldactone PO 25 mg DAILY RAJIV Administration Tamsulosin HCl 0.4 mg 01/12/17 13:00 01/20/17 08:43 Flomax PO 0.4 mg DAILY RAJIV Administration Trazodone HCl 50 mg 01/17/17 01:00 01/20/17 20:30 Desyrel PO 50 mg HS RAJIV Administration - Lab Result Lab results reviewed: Yes Fish Bone Diagrams: 01/21/17 05:09 01/21/17 05:09 - EKG Results EKG Interpreted Independently: Yes - Diagnostic Imaging Results Diagnostic Imaging Results: positive: Final report reviewed - Additional Planning Condition/Complexity: Guarded My Orders: My Active Orders 01/21/17 08:00 Furosemide [Lasix] 120 mg PO BIDDIURETIC 01/22/17 05:00 BNP - B-NATRIURETIC PEPTIDE [IAI] DAILYLAB CBC - COMP BLD CT W/AUTO DIFF [HEME] DAILYLAB CMP, RFLX TO IONIZED CA IF [CHEM] DAILYLAB MAGNESIUM [CHEM] DAILYLAB PHOSPHORUS [CHEM] DAILYLAB Plan Discussed with:: Patient, Family Time Spent: 31-60 minutes Subjective - Subjective Patient Reports: Resting Comfortably (Patient feels as good as he has felt since coming into the hospital. He wants to get out of here. He states his breathing is much better. He was able to walk more than 20 ft with respiratory today.) Nursing Reports: No Complaints Objective Vital Signs: Vital Signs - 24 hr 01/20/17 01/20/17 01/20/17 09:30 17:34 20:25 Temperature 36.6 C 36.7 C Heart Rate [ 65 59 L Brachial] Respiratory 17 26 H Rate Blood Pressure 119/70 91/59 L 112/70 [Left Brachial artery] O2 Saturation 94 94 95 01/20/17 23:30 Temperature 36.7 C Heart Rate [ 63 Brachial] Respiratory 18 Rate Blood Pressure 101/57 L [Left Brachial artery] O2 Saturation 94 Oxygen O2 Source [With Activity] Oxymask O2 Source [Without Activity] 96% on 3L O2 Source Nasal cannula I&O (Last 24 Hrs): Intake and Output Totals x24h 01/19/17 01/20/17 01/21/17 23:59 23:59 23:59 Intake Total 880 866 200 Output Total 335 Balance 545 866 200 General: Alert, Oriented x3, Cooperative, No acute distress HEENT: Atraumatic, PERRLA, EOMI, Mucous membr. moist/pink Neck: Supple, No thyromegaly, +2 carotid pulse wo bruit, Other (Mild JVD) Lymphatic: no adenopathy Neuro: Alert, Disoriented, Non Focal, CN 2-12 Grossly Intact, Oriented Times 3 Cardiovascular: Regular rate, Normal S1, Normal S2, No murmurs, Other (S3) Respiratory: Chest non-tender, No respiratory distress, Rales (B[place]) Abdomen: Normal bowel sounds, Soft, No tenderness, No hepatospenomegaly, Other ( distended) Extremities: No clubbing, No cyanosis, Normal pulses, No tenderness/swelling, Other (Edema is much improved) Skin: No rashes, No breakdown - Results Results: Laboratory Results WBC 6.3 x10^3/uL (4.8-10.8) 01/21/17 05:09 RBC 4.56 10^6/uL (4.70-6.10) L 01/21/17 05:09 Hgb 13.9 g/dL (14.0-18.0) L 01/21/17 05:09 Hct 41.8 % (42.0-52.0) L 01/21/17 05:09 MCV 91.8 fL (80.0-94.0) 01/21/17 05:09 MCH 30.4 pg (27.0-31.0) 01/21/17 05:09 MCHC 33.1 g/dL (32.0-36.0) 01/21/17 05:09 RDW 13.9 % (12.0-15.0) 01/21/17 05:09 Plt Count 155 10^3/uL (130-450) 01/21/17 05:09 MPV 10.4 fL (7.4-11.4) 01/21/17 05:09 Neut # 3.9 10^3/uL (1.5-6.6) 01/21/17 05:09 Lymph # 1.5 10^3/uL (1.5-3.5) 01/21/17 05:09 [place] # 0.6 10^3/uL (0.0-1.0) 01/21/17 05:09 Eos # 0.2 10^3/uL (0.0-0.7) 01/21/17 05:09 Baso # 0.1 10^3/uL (0.0-0.1) 01/21/17 05:09 Absolute Nucleated RBC 0.00 x10^3/uL 01/21/17 05:09 Nucleated RBCs 0.1 /100WBC 01/21/17 05:09 Sodium 140 mmol/L (135-145) 01/21/17 05:09 Potassium 3.5 mmol/L (3.5-5.0) 01/21/17 05:09 Chloride 97 mmol/L (101-111) L 01/21/17 05:09 Carbon Dioxide 34 mmol/L (21-32) H 01/21/17 05:09 Anion Gap 9.0 (6-13) 01/21/17 05:09 BUN 68 mg/dL (6-20) H 01/21/17 05:09 Creatinine 2.4 mg/dL (0.6-1.2) H 01/21/17 05:09 Estimated GFR (MDRD) 26 (>89) L 01/21/17 05:09 Glucose 173 mg/dL (70-100) H 01/21/17 05:09 POC Whole Bld Glucose 159 mg/dL (70 - 100) H 01/17/17 08:02 Glycated Hemoglobin 7.6 % (4.6-6.2) H 01/13/17 05:30 Estim Average Glucose 171 (70-100) H 01/13/17 05:30 Lactic Acid 1.3 mmol/L (0.5-2.2) 01/10/17 12:35 Calcium 9.5 mg/dL (8.5-10.3) 01/21/17 05:09 Ionized Calcium NO 01/21/17 05:09 Phosphorus 3.9 mg/dL (2.5-4.6) 01/21/17 05:09 Magnesium 2.6 mg/dL (1.7-2.8) 01/21/17 05:09 Total Bilirubin 0.7 mg/dL (0.2-1.0) 01/21/17 05:09 AST 29 IU/L (10-42) 01/21/17 05:09 ALT 39 IU/L (10-60) 01/21/17 05:09 Alkaline Phosphatase 54 IU/L (42-121) 01/21/17 05:09 Troponin I 0.39 ng/mL (<0.49) 01/14/17 14:40 B-Natriuretic Peptide 673 pg/mL (5-100) H 01/21/17 05:09 Total Protein 6.7 g/dL (6.7-8.2) 01/21/17 05:09 Albumin 3.5 g/dL (3.2-5.5) 01/21/17 05:09 Globulin 3.2 g/dL (2.1-4.2) 01/21/17 05:09 Albumin/Globulin Ratio 1.1 (1.0-2.2) 01/21/17 05:09 Lipase 36 U/L (22-51) 01/10/17 12:15 Urine Color YELLOW 01/10/17 20:10 Urine Clarity SL. CLOUDY (CLEAR) 01/10/17 20:10 Urine pH 5.5 PH (5.0-7.5) 01/10/17 20:10 Ur Specific [place] 1.015 (1.002-1.030) 01/10/17 20:10 Urine Protein NEGATIVE mg/dL (NEGATIVE) 01/10/17 20:10 Urine Glucose (UA) NEGATIVE mg/dL (NEGATIVE) 01/10/17 20:10 Urine Ketones NEGATIVE mg/dL (NEGATIVE) 01/10/17 20:10 Urine Occult Blood LARGE (NEGATIVE) H 01/10/17 20:10 Urine Nitrite NEGATIVE (NEGATIVE) 01/10/17 20:10 Urine Bilirubin NEGATIVE (NEGATIVE) 01/10/17 20:10 Urine Urobilinogen 0.2 (NORMAL) E.U./dL (NORMAL) 01/10/17 20:10 Ur Leukocyte Esterase MODERATE (NEGATIVE) H 01/10/17 20:10 Urine RBC TNTC /HPF (0-5) H 01/10/17 20:10 Urine WBC >25 /HPF (0-3) H 01/10/17 20:10 Ur Squamous Epith Cells RARE Squamous (<= Few) 01/10/17 20:10 Urine Bacteria Few /HPF (None Seen) 01/10/17 20:10 Ur Microscopic Review INDICATED 01/10/17 20:10 Urine Culture Comments INDICATED 01/10/17 20:10 - Procedures Procedures: Procedures CATARAC PHACOEMULS/ASPIR (12/01/14) INSERT LENS AT CATAR EXT (12/01/14)
--- NOTE | 2017-01-21 07:49 | PROVIDER PROGRESS NOTE ---
Assessment/Plan - Problem List (1) Acute systolic (congestive) heart failure Assessment/Plan: Lost 14kg of weight since admission. Was at 122.5 and now 108.6 KG. Negative 11L in fluid since admission The zaroxyln was stopped 01/12 secondary to renal insufficiency Because his CO2 is up to 38, started diamox 01/13 stopped 01-17-17 After many discussions with the family as patient is showing significant improvement the family and the patient would like to try to go home with hospice or transition to an [facility] or adult family home where he can get enough assistance He also signed a POLST 01/13. 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 [facility] not able to accept patient till Saturday. Social work will find out about getting Hospice set up at [facility]. If able to do so on Saturday patient will be discharged on Saturday. Creatnine worsening secondary to overdiuresis stopped lasix and will continue to monitor wire drawing machine operator before discharge and restart lasix PO at discharge if wire drawing machine operator better Stable with worsening wire drawing machine operator Remove de oliveira and fluid restriction. (2) Acute and chronic respiratory failure with hypoxia Impression: from his CHF. needed O2 2 liters even at rest. has been as high as 5 liters and oxymask. continue prn . Patient has been diuresed more than 11L and has had decreased O2 requirement O2 sats greater than 92% on RA at rest but with exertion he requires 3L of O2 will need home O2 Will need Home O2 to be set up by RT (3) CAD (coronary artery disease), [place] coronary artery Impression: he had an elevated troponin on admit peaked at 0.54 does not appear to have been an [place] likely secondary to CHF Qualifiers: [place] vs. transplanted heart: [place] heart Associated angina: without angina Qualified Code(s): I25.10 - Atherosclerotic heart disease of [place] coronary artery without angina pectoris (4) Type 2 diabetes mellitus with complication, without long-term current use of insulin Impression: was on glimeperide as outpt. A1c is 7.6%. Here out goal is to be <200. not aiming for strict control in view of end stage CHF. Eating about 50% of food. Blood glucose stable less than 200 (5) Acute Kidney Injury Impression: [employer] Assistant increased to 2.9 appears to be stablizing would expect it to start coming down next few days. 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 Patient will transfer via private vehicle. Will go tomorrow if able to set up Hospice. - Current Meds Current Meds: Current Medications Generic Name Dose Route Start Last Admin Trade Name Freq PRN Reason Stop Dose Admin Acetaminophen 650 mg 01/10/17 14:30 01/19/17 14:30 Tylenol PO 650 mg Q4HR PRN Administration Pain 1 to 4 Aspirin 81 mg 01/12/17 13:00 01/20/17 08:43 Ecotrin PO 81 mg DAILY RAJIV Administration Atorvastatin Calcium 20 mg 01/12/17 21:00 01/20/17 20:28 Lipitor PO 20 mg QPM RAJIV Administration Carvedilol 6.25 mg 01/19/17 08:00 01/20/17 20:28 Coreg PO 6.25 mg BID RAJIV Administration Enoxaparin Sodium 40 mg 01/11/17 09:00 01/20/17 08:42 Lovenox SUBQ 40 mg DAILY RAJIV Administration Finasteride 5 mg 01/12/17 13:00 01/20/17 08:43 Proscar PO 5 mg DAILY RAJIV Administration Lisinopril 5 mg 01/13/17 09:00 01/20/17 08:43 Zestril PO 5 mg DAILY RAJIV Administration Mineral Oil 1 applic 01/10/17 21:00 01/20/17 20:31 Cavilon TOP 1 applic BID RAJIV Administration Multivitamins 1 tab 01/12/17 13:00 01/20/17 08:43 Theragran PO 1 tab DAILY RAJIV Administration Nystatin 1 applic 01/11/17 15:00 01/21/17 05:18 Mycostatin Cream TOP 1 applic TID RAJIV Administration Polyethylene Glycol 17 gm 01/11/17 09:00 01/20/17 08:44 Miralax PO Not Given DAILY RAJIV Sodium Chloride 10 ml 01/10/17 14:30 01/12/17 09:12 Normal Saline Flush 0.9% IVP 10 ml PRN PRN Administration NEEDED PER PROVIDER ORDERS Sodium Chloride 10 ml 01/10/17 22:00 01/21/17 05:13 Normal Saline Flush 0.9% IVP 10 ml Q8HR RAJIV Administration Spironolactone 25 mg 01/16/17 12:00 01/20/17 08:43 Aldactone PO 25 mg DAILY RAJIV Administration Tamsulosin HCl 0.4 mg 01/12/17 13:00 01/20/17 08:43 Flomax PO 0.4 mg DAILY RAJIV Administration Trazodone HCl 50 mg 01/17/17 01:00 01/20/17 20:30 Desyrel PO 50 mg HS RAJIV Administration - Lab Result Lab results reviewed: Yes Fish Bone Diagrams: 01/21/17 05:09 01/21/17 05:09 - EKG Results EKG Interpreted Independently: Yes - Diagnostic Imaging Results Diagnostic Imaging Results: positive: Final report reviewed - Additional Planning Condition/Complexity: Improved My Orders: My Active Orders 01/21/17 08:00 Furosemide [Lasix] 120 mg PO BIDDIURETIC 01/22/17 05:00 BNP - B-NATRIURETIC PEPTIDE [IAI] DAILYLAB CBC - COMP BLD CT W/AUTO DIFF [HEME] DAILYLAB CMP, RFLX TO IONIZED CA IF [CHEM] DAILYLAB MAGNESIUM [CHEM] DAILYLAB PHOSPHORUS [CHEM] DAILYLAB Plan Discussed with:: Patient, Family Time Spent: 31-60 minutes Subjective - Subjective Patient Reports: Feeling Better (Patient feels better today. States still short of air with exertion but swelling is down and he is excited about getting out of the hospital.) Nursing Reports: No Complaints Objective Vital Signs: Vital Signs - 24 hr 01/20/17 01/20/17 01/20/17 09:30 17:34 20:25 Temperature 36.6 C 36.7 C Heart Rate [ 65 59 L Brachial] Respiratory 17 26 H Rate Blood Pressure 119/70 91/59 L 112/70 [Left Brachial artery] O2 Saturation 94 94 95 01/20/17 23:30 Temperature 36.7 C Heart Rate [ 63 Brachial] Respiratory 18 Rate Blood Pressure 101/57 L [Left Brachial artery] O2 Saturation 94 Oxygen O2 Source [With Activity] Oxymask O2 Source [Without Activity] 96% on 3L O2 Source Nasal cannula I&O (Last 24 Hrs): Intake and Output Totals x24h 01/19/17 01/20/17 01/21/17 23:59 23:59 23:59 Intake Total 880 866 200 Output Total 335 Balance 545 866 200 General: Alert, Oriented x3, Cooperative, No acute distress HEENT: Atraumatic, PERRLA, EOMI, Mucous membr. moist/pink Neck: Supple, No JVD, No thyromegaly, +2 carotid pulse wo bruit, Other (JVD improved) Neuro: Alert, Non Focal, CN 2-12 Grossly Intact, Oriented Times 3 Cardiovascular: Regular rate, Normal S1, Normal S2, No murmurs, Other (S3) Respiratory: Chest non-tender, No respiratory distress, Rales ([place] improved) Abdomen: Normal bowel sounds, Soft, No tenderness, No hepatospenomegaly, Other ( distended) Extremities: No clubbing, No cyanosis, Normal pulses, Other (LE edema improved) Skin: No rashes, No breakdown - Results Results: Laboratory Results WBC 6.3 x10^3/uL (4.8-10.8) 01/21/17 05:09 RBC 4.56 10^6/uL (4.70-6.10) L 01/21/17 05:09 Hgb 13.9 g/dL (14.0-18.0) L 01/21/17 05:09 Hct 41.8 % (42.0-52.0) L 01/21/17 05:09 MCV 91.8 fL (80.0-94.0) 01/21/17 05:09 MCH 30.4 pg (27.0-31.0) 01/21/17 05:09 MCHC 33.1 g/dL (32.0-36.0) 01/21/17 05:09 RDW 13.9 % (12.0-15.0) 01/21/17 05:09 Plt Count 155 10^3/uL (130-450) 01/21/17 05:09 MPV 10.4 fL (7.4-11.4) 01/21/17 05:09 Neut # 3.9 10^3/uL (1.5-6.6) 01/21/17 05:09 Lymph # 1.5 10^3/uL (1.5-3.5) 01/21/17 05:09 [place] # 0.6 10^3/uL (0.0-1.0) 01/21/17 05:09 Eos # 0.2 10^3/uL (0.0-0.7) 01/21/17 05:09 Baso # 0.1 10^3/uL (0.0-0.1) 01/21/17 05:09 Absolute Nucleated RBC 0.00 x10^3/uL 01/21/17 05:09 Nucleated RBCs 0.1 /100WBC 01/21/17 05:09 Sodium 140 mmol/L (135-145) 01/21/17 05:09 Potassium 3.5 mmol/L (3.5-5.0) 01/21/17 05:09 Chloride 97 mmol/L (101-111) L 01/21/17 05:09 Carbon Dioxide 34 mmol/L (21-32) H 01/21/17 05:09 Anion Gap 9.0 (6-13) 01/21/17 05:09 BUN 68 mg/dL (6-20) H 01/21/17 05:09 Creatinine 2.4 mg/dL (0.6-1.2) H 01/21/17 05:09 Estimated GFR (MDRD) 26 (>89) L 01/21/17 05:09 Glucose 173 mg/dL (70-100) H 01/21/17 05:09 POC Whole Bld Glucose 159 mg/dL (70 - 100) H 01/17/17 08:02 Glycated Hemoglobin 7.6 % (4.6-6.2) H 01/13/17 05:30 Estim Average Glucose 171 (70-100) H 01/13/17 05:30 Lactic Acid 1.3 mmol/L (0.5-2.2) 01/10/17 12:35 Calcium 9.5 mg/dL (8.5-10.3) 01/21/17 05:09 Ionized Calcium NO 01/21/17 05:09 Phosphorus 3.9 mg/dL (2.5-4.6) 01/21/17 05:09 Magnesium 2.6 mg/dL (1.7-2.8) 01/21/17 05:09 Total Bilirubin 0.7 mg/dL (0.2-1.0) 01/21/17 05:09 AST 29 IU/L (10-42) 01/21/17 05:09 ALT 39 IU/L (10-60) 01/21/17 05:09 Alkaline Phosphatase 54 IU/L (42-121) 01/21/17 05:09 Troponin I 0.39 ng/mL (<0.49) 01/14/17 14:40 B-Natriuretic Peptide 673 pg/mL (5-100) H 01/21/17 05:09 Total Protein 6.7 g/dL (6.7-8.2) 01/21/17 05:09 Albumin 3.5 g/dL (3.2-5.5) 01/21/17 05:09 Globulin 3.2 g/dL (2.1-4.2) 01/21/17 05:09 Albumin/Globulin Ratio 1.1 (1.0-2.2) 01/21/17 05:09 Lipase 36 U/L (22-51) 01/10/17 12:15 Urine Color YELLOW 01/10/17 20:10 Urine Clarity SL. CLOUDY (CLEAR) 01/10/17 20:10 Urine pH 5.5 PH (5.0-7.5) 01/10/17 20:10 Ur Specific [place] 1.015 (1.002-1.030) 01/10/17 20:10 Urine Protein NEGATIVE mg/dL (NEGATIVE) 01/10/17 20:10 Urine Glucose (UA) NEGATIVE mg/dL (NEGATIVE) 01/10/17 20:10 Urine Ketones NEGATIVE mg/dL (NEGATIVE) 01/10/17 20:10 Urine Occult Blood LARGE (NEGATIVE) H 01/10/17 20:10 Urine Nitrite NEGATIVE (NEGATIVE) 01/10/17 20:10 Urine Bilirubin NEGATIVE (NEGATIVE) 01/10/17 20:10 Urine Urobilinogen 0.2 (NORMAL) E.U./dL (NORMAL) 01/10/17 20:10 Ur Leukocyte Esterase MODERATE (NEGATIVE) H 01/10/17 20:10 Urine RBC TNTC /HPF (0-5) H 01/10/17 20:10 Urine WBC >25 /HPF (0-3) H 01/10/17 20:10 Ur Squamous Epith Cells RARE Squamous (<= Few) 01/10/17 20:10 Urine Bacteria Few /HPF (None Seen) 01/10/17 20:10 Ur Microscopic Review INDICATED 01/10/17 20:10 Urine Culture Comments INDICATED 01/10/17 20:10 - Procedures Procedures: Procedures CATARAC PHACOEMULS/ASPIR (12/01/14) INSERT LENS AT CATAR EXT (12/01/14)
[2017-01-21] MEDS: TAMSULOSIN 0.4 MG CAPSULE PO SCH (09:17)
[2017-01-21] MEDS: SPIRONOLACTONE 25 MG TABLET PO SCH (09:17)
[2017-01-21] MEDS: MULTIVITAMIN TABLET PO SCH (09:17)
[2017-01-21] MEDS: ASPIRIN EC 81 MG TABLET PO SCH (09:18)
[2017-01-21] MEDS: ENOXAPARIN 40 MG/0.4 ML SYRINGE SUBQ SCH (09:19)
[2017-01-21] MEDS: POLYETHYLENE GLYCOL 3350 17 GM PACKET PO SCH (09:19)
[2017-01-21] MEDS: FUROSEMIDE 40 MG TABLET PO SCH ×2 (09:19→13:47)
[2017-01-21] MEDS: MIN OIL/DIMETHICON/COCONUT OIL 92 GM TUBE TOP SCH ×2 (09:20→22:57)
[2017-01-21] MEDS: CARVEDILOL 3.125 MG TABLET PO SCH ×2 (09:23→21:34)
[2017-01-21] MEDS: LISINOPRIL 5 MG TABLET PO SCH (09:23)
[2017-01-21] MEDS: FINASTERIDE 5 MG TABLET PO SCH (09:26)
--- NOTE | 2017-01-21 18:37 | PROVIDER PROGRESS NOTE ---
Assessment/Plan - Problem List (1) Acute systolic (congestive) heart failure Assessment/Plan: Lost 14kg of weight since admission. Was at 122.5 and now 108.6 KG. Negative 11L in fluid since admission The zaroxyln was stopped 01/12 secondary to renal insufficiency Because his CO2 is up to 38, started diamox 01/13 stopped 01-17-17 After many discussions with the family as patient is showing significant improvement the family and the patient would like to try to go home with hospice or transition to an [facility] or adult family home where he can get enough assistance He also signed a POLST 01/13. 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 [facility] not able to accept patient till Saturday. Social work will find out about getting Hospice set up at [facility]. If able to do so on Saturday patient will be discharged on Saturday. Creatnine worsening secondary to overdiuresis stopped lasix and will continue to monitor contact lens inspector before discharge and restart lasix PO at discharge if contact lens inspector better Stable with improving contact lens inspector Restart PO lasix today Patient will be transferred to adult family home tomorrow with hospice to start and equipment to be delivered. Patient will also get O2 for ride over and O2 once he arrives. He will go by private vehicle. (2) Acute and chronic respiratory failure with hypoxia Impression: from his CHF. needed O2 2 liters even at rest. has been as high as 5 liters and oxymask. continue prn . Patient has been diuresed more than 11L and has had decreased O2 requirement O2 sats greater than 92% on RA at rest but with exertion he requires 3L of O2 will need home O2 Will need Home O2 to be set up by RT (3) CAD (coronary artery disease), [place] coronary artery Impression: he had an elevated troponin on admit peaked at 0.54 does not appear to have been an RI likely secondary to CHF Qualifiers: [place] vs. transplanted heart: [place] heart Associated angina: without angina Qualified Code(s): I25.10 - Atherosclerotic heart disease of [place] coronary artery without angina pectoris (4) Type 2 diabetes mellitus with complication, without long-term current use of insulin Impression: was on glimeperide as outpt. A1c is 7.6%. Here out goal is to be <200. not aiming for strict control in view of end stage CHF. Eating about 50% of food. 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 Hospice cannot open till tomorrow. Patient to go by private vehicle tomorrow morning. - Current Meds Current Meds: Current Medications Generic Name Dose Route Start Last Admin Trade Name Freq PRN Reason Stop Dose Admin Acetaminophen 650 mg 01/10/17 14:30 01/19/17 14:30 Tylenol PO 650 mg Q4HR PRN Administration Pain 1 to 4 Aspirin 81 mg 01/12/17 13:00 01/21/17 09:18 Ecotrin PO 81 mg DAILY RAJIV Administration Atorvastatin Calcium 20 mg 01/12/17 21:00 01/20/17 20:28 Lipitor PO 20 mg QPM RAJIV Administration Carvedilol 6.25 mg 01/19/17 08:00 01/21/17 09:23 Coreg PO 6.25 mg BID RAJIV Administration Enoxaparin Sodium 40 mg 01/11/17 09:00 01/21/17 09:19 Lovenox SUBQ 40 mg DAILY RAJIV Administration Finasteride 5 mg 01/12/17 13:00 01/21/17 09:26 Proscar PO 5 mg DAILY RAJIV Administration Furosemide 120 mg 01/21/17 08:00 01/21/17 13:47 Lasix PO 120 mg BIDDIURETIC RAJIV Administration Lisinopril 5 mg 01/13/17 09:00 01/21/17 09:23 Zestril PO 5 mg DAILY RAJIV Administration Mineral Oil 1 applic 01/10/17 21:00 01/21/17 09:20 Cavilon TOP 1 applic BID RAJIV Administration Multivitamins 1 tab 01/12/17 13:00 01/21/17 09:17 Theragran PO 1 tab DAILY RAJIV Administration Nystatin 1 applic 01/11/17 15:00 01/21/17 13:49 Mycostatin Cream TOP 1 applic TID RAJIV Administration Polyethylene Glycol 17 gm 01/11/17 09:00 01/21/17 09:19 Miralax PO 17 gm DAILY RAJIV Administration Sodium Chloride 10 ml 01/10/17 14:30 01/12/17 09:12 Normal Saline Flush 0.9% IVP 10 ml PRN PRN Administration NEEDED PER PROVIDER ORDERS Sodium Chloride 10 ml 01/10/17 22:00 01/21/17 13:47 Normal Saline Flush 0.9% IVP 10 ml Q8HR RAJIV Administration Spironolactone 25 mg 01/16/17 12:00 01/21/17 09:17 Aldactone PO 25 mg DAILY RAJIV Administration Tamsulosin HCl 0.4 mg 01/12/17 13:00 01/21/17 09:17 Flomax PO 0.4 mg DAILY RAJIV Administration Trazodone HCl 50 mg 01/17/17 01:00 01/20/17 20:30 Desyrel PO 50 mg HS RAJIV Administration - Lab Result Lab results reviewed: Yes Fish Bone Diagrams: 01/21/17 05:09 01/21/17 05:09 - EKG Results EKG Interpreted Independently: Yes - Diagnostic Imaging Results Diagnostic Imaging Results: positive: Final report reviewed - Additional Planning Condition/Complexity: Stable My Orders: My Active Orders 01/21/17 08:00 Furosemide [Lasix] 120 mg PO BIDDIURETIC 01/22/17 05:00 BNP - B-NATRIURETIC PEPTIDE [IAI] DAILYLAB CBC - COMP BLD CT W/AUTO DIFF [HEME] DAILYLAB CMP, RFLX TO IONIZED CA IF [CHEM] DAILYLAB MAGNESIUM [CHEM] DAILYLAB PHOSPHORUS [CHEM] DAILYLAB Plan Discussed with:: Patient, Family Time Spent: 31-60 minutes Subjective - Subjective Patient Reports: Feeling Better (No complaints today. No fevers overnight. He has been getting up into a chair. He feels much better.), Resting Comfortably Nursing Reports: No Complaints Objective Vital Signs: Vital Signs - 24 hr 01/20/17 01/20/17 01/21/17 20:25 23:30 09:44 Temperature 36.7 C 36.4 C L Heart Rate [ 63 64 Brachial] Respiratory 18 20 Rate Blood Pressure 112/70 101/57 L 94/58 L [Left Brachial artery] O2 Saturation 95 94 93 Oxygen O2 Source [With Activity] Oxymask O2 Source [Without Activity] 96% on 3L O2 Source Nasal cannula I&O (Last 24 Hrs): Intake and Output Totals x24h 01/19/17 01/20/17 01/21/17 23:59 23:59 23:59 Intake Total 880 866 640 Output Total 335 1 Balance 545 866 639 General: Alert, Oriented x3, Cooperative, No acute distress HEENT: Atraumatic, PERRLA, EOMI, Mucous membr. moist/pink Neck: Supple, No thyromegaly, +2 carotid pulse wo bruit, No LAD, Other (JVD improved) Lymphatic: no adenopathy Neuro: Alert, Non Focal, CN 2-12 Grossly Intact, Oriented Times 3 Cardiovascular: Regular rate, Normal S1, Normal S2, Other (S3) Respiratory: Chest non-tender, No respiratory distress, Breath sounds nml, Rales (mild) Abdomen: Normal bowel sounds, Soft, No tenderness, No hepatospenomegaly, No masses Extremities: No clubbing, No cyanosis, Normal pulses, No tenderness/swelling, Other (Trace LE edema) Skin: No rashes, No breakdown - Results Results: Laboratory Results WBC 6.3 x10^3/uL (4.8-10.8) 01/21/17 05:09 RBC 4.56 10^6/uL (4.70-6.10) L 01/21/17 05:09 Hgb 13.9 g/dL (14.0-18.0) L 01/21/17 05:09 Hct 41.8 % (42.0-52.0) L 01/21/17 05:09 MCV 91.8 fL (80.0-94.0) 01/21/17 05:09 MCH 30.4 pg (27.0-31.0) 01/21/17 05:09 MCHC 33.1 g/dL (32.0-36.0) 01/21/17 05:09 RDW 13.9 % (12.0-15.0) 01/21/17 05:09 Plt Count 155 10^3/uL (130-450) 01/21/17 05:09 MPV 10.4 fL (7.4-11.4) 01/21/17 05:09 Neut # 3.9 10^3/uL (1.5-6.6) 01/21/17 05:09 Lymph # 1.5 10^3/uL (1.5-3.5) 01/21/17 05:09 [place] # 0.6 10^3/uL (0.0-1.0) 01/21/17 05:09 Eos # 0.2 10^3/uL (0.0-0.7) 01/21/17 05:09 Baso # 0.1 10^3/uL (0.0-0.1) 01/21/17 05:09 Absolute Nucleated RBC 0.00 x10^3/uL 01/21/17 05:09 Nucleated RBCs 0.1 /100WBC 01/21/17 05:09 Sodium 140 mmol/L (135-145) 01/21/17 05:09 Potassium 3.5 mmol/L (3.5-5.0) 01/21/17 05:09 Chloride 97 mmol/L (101-111) L 01/21/17 05:09 Carbon Dioxide 34 mmol/L (21-32) H 01/21/17 05:09 Anion Gap 9.0 (6-13) 01/21/17 05:09 BUN 68 mg/dL (6-20) H 01/21/17 05:09 Creatinine 2.4 mg/dL (0.6-1.2) H 01/21/17 05:09 Estimated GFR (MDRD) 26 (>89) L 01/21/17 05:09 Glucose 173 mg/dL (70-100) H 01/21/17 05:09 POC Whole Bld Glucose 159 mg/dL (70 - 100) H 01/17/17 08:02 Glycated Hemoglobin 7.6 % (4.6-6.2) H 01/13/17 05:30 Estim Average Glucose 171 (70-100) H 01/13/17 05:30 Lactic Acid 1.3 mmol/L (0.5-2.2) 01/10/17 12:35 Calcium 9.5 mg/dL (8.5-10.3) 01/21/17 05:09 Ionized Calcium NO 01/21/17 05:09 Phosphorus 3.9 mg/dL (2.5-4.6) 01/21/17 05:09 Magnesium 2.6 mg/dL (1.7-2.8) 01/21/17 05:09 Total Bilirubin 0.7 mg/dL (0.2-1.0) 01/21/17 05:09 AST 29 IU/L (10-42) 01/21/17 05:09 ALT 39 IU/L (10-60) 01/21/17 05:09 Alkaline Phosphatase 54 IU/L (42-121) 01/21/17 05:09 Troponin I 0.39 ng/mL (<0.49) 01/14/17 14:40 B-Natriuretic Peptide 673 pg/mL (5-100) H 01/21/17 05:09 Total Protein 6.7 g/dL (6.7-8.2) 01/21/17 05:09 Albumin 3.5 g/dL (3.2-5.5) 01/21/17 05:09 Globulin 3.2 g/dL (2.1-4.2) 01/21/17 05:09 Albumin/Globulin Ratio 1.1 (1.0-2.2) 01/21/17 05:09 Lipase 36 U/L (22-51) 01/10/17 12:15 Urine Color YELLOW 01/10/17 20:10 Urine Clarity SL. CLOUDY (CLEAR) 01/10/17 20:10 Urine pH 5.5 PH (5.0-7.5) 01/10/17 20:10 Ur Specific [place] 1.015 (1.002-1.030) 01/10/17 20:10 Urine Protein NEGATIVE mg/dL (NEGATIVE) 01/10/17 20:10 Urine Glucose (UA) NEGATIVE mg/dL (NEGATIVE) 01/10/17 20:10 Urine Ketones NEGATIVE mg/dL (NEGATIVE) 01/10/17 20:10 Urine Occult Blood LARGE (NEGATIVE) H 01/10/17 20:10 Urine Nitrite NEGATIVE (NEGATIVE) 01/10/17 20:10 Urine Bilirubin NEGATIVE (NEGATIVE) 01/10/17 20:10 Urine Urobilinogen 0.2 (NORMAL) E.U./dL (NORMAL) 01/10/17 20:10 Ur Leukocyte Esterase MODERATE (NEGATIVE) H 01/10/17 20:10 Urine RBC TNTC /HPF (0-5) H 01/10/17 20:10 Urine WBC >25 /HPF (0-3) H 01/10/17 20:10 Ur Squamous Epith Cells RARE Squamous (<= Few) 01/10/17 20:10 Urine Bacteria Few /HPF (None Seen) 01/10/17 20:10 Ur Microscopic Review INDICATED 01/10/17 20:10 Urine Culture Comments INDICATED 01/10/17 20:10 - Procedures Procedures: Procedures CATARAC PHACOEMULS/ASPIR (12/01/14) INSERT LENS AT CATAR EXT (12/01/14)
--- NOTE | 2017-01-21 19:03 | Discharge Plan ---
Discharge Plan Disposition: 50 Hospice/Home DC/Xfer Condition: Fair Prescriptions: Spironolactone [Aldactone] 25 mg PO DAILY #30 tablet LORazepam [Ativan] 0.5 mg PO Q6H #30 tablet Carvedilol 6.25 tab PO BID #60 tablet Furosemide [Lasix] 120 mg PO BIDDIURETIC #120 tablet Morphine Sulfate [Morphine Sulf Oral (Roxanol)] 0.25 ml PO Q1H PRN #30 ml PRN Reason: Pain/Dyspnea Lisinopril [Zestril] 5 mg PO DAILY #30 tablet Diet: Low Sodium (Fluid restiction of 2 liters) Activity Restrictions: Activity as Tolerated Shower Restrictions: No Driving Restrictions: No Assistance Devices: Walker Weight Bearing: Full Weight Additional Instructions or Follow Up instructions: Hospice will meet you at your need adult family home near [place]. They will provide you with the equipment you need. Follow-Up Care: Hospice No Smoking: If you smoke, Please STOP! Call for help.
[2017-01-21] MEDS: ATORVASTATIN 10 MG TABLET PO SCH (21:34)
[2017-01-21] MEDS: traZODone 50 MG TABLET PO SCH (21:35)
[2017-01-22 00:18] VITALS: BP 91/65
[2017-01-22] MEDS: SODIUM CHLORIDE FLUSH 0.9% 10 ML SYRINGE IVP SCH (05:46)
[2017-01-22] MEDS: FUROSEMIDE 40 MG TABLET PO SCH (05:46)
[2017-01-22] MEDS: NYSTATIN CREAM 15 GM TUBE TOP SCH (05:46)
[2017-01-22 06:25] LABS: BASOPHILS # (AUTO) 0.1 10^3/uL (0.0-0.1); BASOPHILS % (AUTO) 0.8 %; EOSINOPHILS # (AUTO) 0.2 10^3/uL (0.0-0.7); EOSINOPHILS % (AUTO) 3.2 %; HCT - HEMATOCRIT 43.8 % (42.0-52.0); HGB - HEMOGLOBIN 14.4 g/dL (14.0-18.0); LYMPHOCYTES # (AUTO) 1.6 10^3/uL (1.5-3.5); MEAN CORPUSCULAR HEMOGLOBIN 30.4 pg (27.0-31.0); MEAN PLATELET VOLUME 10.2 fL (7.4-11.4); MONOCYTES # (AUTO) 0.7 10^3/uL (0.0-1.0); MONOCYTES % (AUTO) 10.8 %; NEUTROPHILS # (AUTO) 3.9 10^3/uL (1.5-6.6); NEUTROPHILS % (AUTO) 60.2 %; RED BLOOD COUNT 4.76 10^6/uL (4.70-6.10); RED CELL DISTRIBUTION WIDTH 13.8 % (12.0-15.0); UNCORRECTED WHITE BLOOD COUNT 6.6 x10^3/uL; WHITE BLOOD COUNT 6.6 x10^3/uL (4.8-10.8)
[2017-01-22 06:39] LABS: ALBUMIN/GLOBULIN RATIO 1.1 (1.0-2.2); BILIRUBIN,TOTAL 0.9 mg/dL (0.2-1.0); BUN - BLOOD UREA NITROGEN 62 mg/dL (6-20); CALCIUM 9.8 mg/dL (8.5-10.3); CARBON DIOXIDE - CO2 34 mmol/L (21-32); CHLORIDE 99 mmol/L (101-111); CREATININE 2.1 mg/dL (0.6-1.2); GFR - MDRD 30 (>89); GLUCOSE 193 mg/dL (70-100); MAGNESIUM 2.5 mg/dL (1.7-2.8); PHOSPHORUS 2.4 mg/dL (2.5-4.6); POTASSIUM 3.9 mmol/L (3.5-5.0); SODIUM 142 mmol/L (135-145); TOTAL PROTEIN 7.1 g/dL (6.7-8.2)
[2017-01-22] MEDS: LISINOPRIL 5 MG TABLET PO SCH (08:43)
[2017-01-22] MEDS: ASPIRIN EC 81 MG TABLET PO SCH (08:43)
[2017-01-22] MEDS: SPIRONOLACTONE 25 MG TABLET PO SCH (08:43)
[2017-01-22] MEDS: FINASTERIDE 5 MG TABLET PO SCH (08:43)
[2017-01-22] MEDS: CARVEDILOL 3.125 MG TABLET PO SCH (08:43)
[2017-01-22] MEDS: TAMSULOSIN 0.4 MG CAPSULE PO SCH (08:43)
[2017-01-22] MEDS: MULTIVITAMIN TABLET PO SCH (08:43)
[2017-01-22] MEDS: ENOXAPARIN 40 MG/0.4 ML SYRINGE SUBQ SCH (08:44)
[2017-01-22] MEDS: MIN OIL/DIMETHICON/COCONUT OIL 92 GM TUBE TOP SCH (08:45)
[2017-01-22] MEDS: POLYETHYLENE GLYCOL 3350 17 GM PACKET PO SCH (08:45)
--- NOTE | 2017-01-22 19:26 | DISCHARGE SUMMARY ---
DATE OF ADMISSION: 01/10/2017 DATE OF DISCHARGE: 01/22/2017 PRIMARY CARE PHYSICIAN: Eusebio Pathak MD. ADMISSION DIAGNOSES: 1. Congestive heart failure exacerbation, suspect systolic origin. 2. Cardiac strain versus myocardial infarction. 3. Hypertension. 4. Diabetes, uncontrolled. 5. Bladder cancer by history, in remission. 6. Benign prostatic hypertrophy. DISCHARGE DIAGNOSES: 1. Congestive heart failure with exacerbation, systolic left heart. 2. Cardiac strain. 3. Cardiomyopathy biventricular. 4. Hypertension. 5. Diabetes, uncontrolled, improved control in hospital. 6. Bladder cancer by history, in remission. 7. Benign prostatic hypertrophy. HOSPITAL COURSE AND MANAGEMENT: The initial presentation, hospital emergency department evaluation, a la hospitalist plan is well described in the history and physical, see copy of same. SUMMARY: The patient is an 81-year-old male with past medical history of hypertension, CHF, type 2 di abetes, bladder cancer. The patient over the last week became progressively more short of breath and more swelling in his legs and presents to the hospital. He was found to have an exacerbation of CHF. The patient was admitted for diuresis and further workup, also suspect a cardiac strain with lower li kelihood of an [place]. The patient had serial troponins with a 0.54 maximum, just above the threshold was 0.49. The patient had an echocardiogram which shows a very poor EF of less than 20%. He had a fair diagnosis the first day. He had a slight decline in his GFR. He was given Zaroxolyn the first day, but had to be stopped because of this. The patient's GFR had plateaued on 01/13/2017 and he was noted to be down 7 kilos fr om 124 to 117. The patient's CO2 increased up to 38, Diamox was started at 250 twice a day with harris ant surveillance for further deterioration. The patient's respiratory failure secondary to cardiac fa ilure only modest improvement. The urine did not grow any bacteria, so antibiotics were stopped. Also followup chest x-ray was also negative. Next day the patient was noted to be tired, shortness of sapna ath even with the medications he had dyspnea on exertion with just talking and sitting. Glucose was i n the high 100s. The patient had a consultation with Palliative care, Jocelyn Rojas, and a followup to the consultation, patient's weight declined further from 122.4 to 113.6. Diuresis was continued. He did still do 3 liters at rest and high as 5 liters with later. The family conversations were continued with the patient and his clinton Macias. The patient's appetite was good. Unfortunately t he patient's kidney function declined further, talk was changed from going to SNF because his insuran ce denied a SNF. The patient's weight declined further to 108.6, his kidney function continued to dec rease, slowly his acute on chronic renal failure improved and by the day of discharge, his creatinine which had soared to 2.9 was down to 2.1. On the day of discharge, his temperature 36.7, 64, 91/65, 20, 94 on room air but 2 to 3 liters needed with exertion. Rest exam, elderly male, delightfully pleasant, interactive. EYES: EOMs within normal limits, PERRL and throat somewhat dry mucous membranes, otherwise no patholo gy noted in mouth or pharynx. NECK: No lymphadenopathy, no thyromegaly, no JVD. CHEST: Symmetric, nontender. HEART: Sinus rhythm, 2/6 murmur left sternal border, systolic. LUNGS: Fair air movement. No rales, rhonchi heard. ABDOMEN: Thick abdominal wall, soft, nontender. No further exam. RECTAL/GENITAL: Exam not done. EXTREMITIES: Dramatically reduced edema which was tense, woody above the knees now reduced to 1+. NEUROLOGICAL: Cognitive intact. Cranial nerves intact. Motor intact. LABORATORY DATA: White count 6.6, 14 and 44 hemoglobin and hematocrit, platelets 160. Sodium 142, pot assium 3.9, chloride 94, CO2 34, BUN 62, creatinine is 2.1. The patient's GFR is 30, glucose is 193, calcium 9.8, and his albumin is 3.7. BNP 776, which has stayed in a fairly narrow range throughout hi s hospital stay, he was discharged home. ALLERGIES: HE HAS NO KNOWN ALLERGIES. MEDICATIONS ARE: 1. Multivitamin 1 a day. 2. Vitamin D3 2000 units a day. 3. Aspirin 81 mg a day. 4. Vicki 1 cap daily. 5. Amaryl 2 mg daily. 6. Lasix 80 mg daily. 7. Allopurinol 150 mg daily. 8. Zocor 40 mg daily. 9. Trazodone 100 mg at bedtime. 10. Aldactone 25 mg daily. 11. Morphine, Roxanol 0.25 ml q.1h.. p.r.n. shortness of breath. 12. Zestril 5 mg a day. 13. Lorazepam 0.5 q.6h. 14. Lasix 120 mg twice a day. 15. Carvedilol 6.25 mg b.i.d. The patient is going to adult family care will be signed up for hospice. Time spent in discharge 45 minutes. The patient was examined on day of discharge as noted above. JOB #: [id number] EXT JOB #:[id number]
== END 2017-01-22 09:20 | disposition hospice, home (50) | DRG 291 ==
LOC: ED 11:29 → MS 14:30
PROVIDERS: ADMIT Internal Medicine; ATTEND Internal Medicine
DX: I11.0 Hypertensive heart disease with heart failure (principal); I50.9 Heart failure, unspecified; E11.9 Type 2 diabetes mellitus without complications; I13.0 Hypertensive heart and chronic kidney disease with heart failure and stage 1 through stage 4 chronic kidney disease, or unspecified chronic kidney disease; I50.23 Acute on chronic systolic (congestive) heart failure; J96.21 Acute and chronic respiratory failure with hypoxia; N17.9 Acute kidney failure, unspecified; N18.9 Chronic kidney disease, unspecified; E11.22 Type 2 diabetes mellitus with diabetic chronic kidney disease; E11.65 Type 2 diabetes mellitus with hyperglycemia; I25.10 Atherosclerotic heart disease of native coronary artery without angina pectoris; B37.2 Candidiasis of skin and nail; G47.30 Sleep apnea, unspecified; K52.9 Noninfective gastroenteritis and colitis, unspecified; N40.1 Benign prostatic hyperplasia with lower urinary tract symptoms; R35.1 Nocturia; F32.9 Major depressive disorder, single episode, unspecified; G89.29 Other chronic pain; M54.9 Dorsalgia, unspecified; R53.83 Other fatigue; M19.90 Unspecified osteoarthritis, unspecified site; Z85.51 Personal history of malignant neoplasm of bladder; I25.2 Old myocardial infarction; Z87.440 Personal history of urinary (tract) infections; Z79.82 Long term (current) use of aspirin; Z79.899 Other long term (current) drug therapy; Z79.84 Long term (current) use of oral hypoglycemic drugs; Z87.891 Personal history of nicotine dependence; Z66 Do not resuscitate
CPT/HCPCS: 36415; 51702; 71010; 71020; 80048; 80053; 81001; 81003; 83036; 83605; 83690; 83735; 83880; 84100; 84484; 85025; 87086; 93005; 93010; 93306; 94640; 96374; 99223; 99233; 99284; 99285